=== PATIENT | female | born 1945 | race Caucasian/White ===

== ENCOUNTER 2016-07-03 12:01 | Inpatient (IN) ==
--- NOTE | 2016-07-03 12:26 | Emergency Department Note ---
General Adult HPI - General Chief complaint: Weakness Stated complaint: weakness Time Seen by Provider: 07/03/16 12:20 Source: patient, family, EMS Mode of arrival: EMS Limitations: no limitations - History of Present Illness HPI Narrative: This patient is morbidly obese at over 300 pounds and has had difficulty getting up and down and moving around recently also poor appetite and not eating or drinking much. Weakness is been coming on for 4 months. Apparently today she could not even get off the toilet she felt somewhat weak she is awake and alert and doesn't really have much the way of complaints other than slight nausea - Related Data Home Medications Medication Instructions Recorded Confirmed Oxygen Therapy NOTAPPLIC 12/11/14 01/14/16 polyethylene glycol 3350 17 17 g PO QHS each 12/11/14 02/22/16 gram/dose oral powder ranitidine 150 mg tablet 150 mg PO QHS tab 12/11/14 02/22/16 wheelchair miscellaneous Device NOTAPPLIC 12/11/14 01/14/16 fluticasone furoate 200 200 mcg INHALATION QDAY 08/04/15 02/22/16 mcg/actuation blister powder for inhalation levalbuterol 1.25 mg/3 mL solution 1.25 mg INHALATION QID ml 08/04/15 02/22/16 for nebulization tiotropium 2.5 mcg-olodaterol 2.5 2 inh INHALATION QDAY 08/04/15 02/22/16 mcg/actuation mist for inhalation aspirin 325 mg tablet 325 mg PO QDAY 01/14/16 02/22/16 bismuth subsalicylate 262 mg tablet 524 mg PO QID PRN 01/14/16 02/22/16 cholecalciferol (vitamin D3) 2,000 2,000 unit PO QDAY cap 01/14/16 02/22/16 unit capsule diphenhydramine 25 mg capsule 50 mg PO QHS PRN cap 01/14/16 02/22/16 Previous Rx's Medication Instructions Recorded B-complex with vitamin C tablet 1 tab-cap PO QDAY #30 tab 01/22/15 tramadol 50 mg tablet 50 mg PO TID PRN #90 tab 01/07/16 oseltamivir 75 mg capsule 75 mg PO QDAY 10 Days 03/08/16 cefdinir 300 mg capsule 300 mg PO BID 10 Days 03/10/16 levothyroxine 50 mcg tablet 50 mcg PO QDAY #60 tab 03/16/16 furosemide 20 mg tablet 40 mg PO QDAY #60 tab 06/02/16 potassium chloride ER 10 mEq 20 meq PO QDAY #60 tab 06/02/16 tablet,extended release HYDROcodone/APAP 5/325MG [Glennie 1 - 2 tab PO Q4HP PRN #20 tab 06/08/16 5/325Mg] venlafaxine ER 75 mg 75 mg PO QDAY #30 cap 06/09/16 capsule,extended release 24 hr Allergies Allergy/AdvReac Type Severity Reaction Status Date / Time Erythromycin Base Allergy Rash Verified 07/03/16 12:08 Sulfa (Sulfonamide Allergy Rash Verified 07/03/16 12:08 Antibiotics) Review of Systems Constitutional: Denies: fever, chills Eyes: Denies: eye pain ENT ED: Denies: ear pain Cardiovascular: Denies: chest pain, palpitations Respiratory: Denies: cough, dyspnea Gastrointestinal: Reports: nausea. Denies: abdominal pain, vomiting, diarrhea Genitourinary: Denies: urgency Musculoskeletal: Denies: back pain Integumentary: Denies: rash Neurological: Denies: headache Psychiatric: Denies: anxiety Past Medical History - Past Medical History Medical history: Reports: arthritis, asthma, atrial fibrillation, CHF, COPD, coronary artery disease, GERD, hyperlipidemia, hypertension, migraine, peripheral artery disease, thyroid disease, other (Hypothyroidism, carpal tunnel right wrist. Peripheral vascular disease, morbid obesity, GERD, migraine headache, hypercholesterolemia. Hypertension, oppression, to fibrillation, asthma,) Surgical history ED: Reports: cataract, cholecystectomy, hysterectomy Psychiatric history: Reports: anxiety, depression Physical Exam - General Limitations: no limitations General appearance: alert - Head Head exam: atraumatic - Eye Eye exam: Present: normal appearance - ENT ENT exam: normal exam, mucous membranes dry - Neck Neck exam: Present: normal inspection - Chest Chest inspection: Present: normal inspection - Respiratory Respiratory exam: Present: normal lung sounds bilaterally - Cardiovascular Cardiovascular exam: Present: regular rate, normal rhythm, normal heart sounds - Abdominal Exam Abdominal exam: Present: soft. Absent: distention, tenderness - Neurological Exam Neurological exam: Present: alert - Psychiatric Psychiatric exam: Present: normal affect - Skin Skin exam: Present: warm, dry Course Vital Signs Temperature 97.2 F L 07/03/16 12:02 Pulse Rate 87 07/03/16 12:02 Respiratory Rate 22 07/03/16 12:02 Blood Pressure 110/88 07/03/16 12:02 Pulse Oximetry (%) 95 07/03/16 12:02 Temperature 97.2 F L 07/03/16 12:02 Pulse Rate 70 07/03/16 17:00 Respiratory Rate 15 07/03/16 17:00 Blood Pressure 111/72 07/03/16 17:00 Pulse Oximetry (%) 94 07/03/16 17:00 Medical Decision Making - Lab Data Lab results reviewed: Yes I reviewed the patient's lab results. Result diagrams: 07/03/16 12:54 07/03/16 12:54 Lab Results 07/03/16 07/03/16 07/03/16 Range/Units 12:54 12:54 12:54 WBC 10.2 (4.5-11.0) K/mcL RBC 3.55 L (4.00-5.20) M/mcL Hgb 11.2 L (12.0-15.0) g/dL Hct 34.5 L (36.0-48.0) % MCV 97.3 (80.0-100.0) fL MCH 31.6 (26.0-34.0) pg MCHC 32.5 (31.0-36.0) g/dL RDW 14.0 (11.5-14.5) % Plt Count 230 (140-440) K/mcL MPV 9.3 (7.4-10.4) fL Gran % 87.6 H (38.0-78.0) % Lymph % (Auto) 6.4 L (15.5-49.0) % [place] % (Auto) 2.5 (1.0-9.0) % Eos % (Auto) 3.2 (0.0-7.0) % Baso % (Auto) 0.3 (0.0-2.0) % Gran # 8.9 H (1.8-8.0) K/mcL Lymph # 0.6 L (1.5-4.8) K/mcL [place]y # 0.3 (0.1-0.9) K/mcL Eos # 0.3 (0.0-0.7) K/mcL Baso # 0 (0.0-0.3) K/mcL VBG Lactic Acid 1.3 (0.5-2.2) mmol/L Sodium 142 (133-145) mmol/L Potassium 4.0 (3.3-5.1) mmol/L Chloride 102 (96-108) mmol/L Carbon Dioxide 32 H (22-30) mmol/L Anion Gap 8.0 (8-16) BUN 21 (8-23) mg/dl Creatinine 0.9 (0.6-1.1) mg/dl GFR Calculation 65 Glucose 100 (70-105) mg/dL Calcium 9.4 (8.6-10.4) mg/dl Total Bilirubin 0.3 (0.0-1.0) mg/dL AST 16 (0-37) U/l ALT 5 (0-40) U/l Alkaline Phosphatase 92 (39-117) U/L Troponin T (0-0.03) ng/ml Total Protein 7.1 (5.9-8.4) gm/dL Albumin 3.6 (3.2-5.2) gm/dL Globulin 3.5 (2.2-3.7) gm/dL Albumin/Globulin Ratio 1.0 (1.0-2.3) Urine Color Urine Appearance Urine pH (5.0-9.0) Ur Specific [place] (1.000-1.035) Urine Protein (NEG) mg/dL Urine Glucose (UA) (NEG) mg/dL Urine Ketones (NEG) mg/dL Urine Occult Blood (<0.03) mg/dL Urine Nitrate (NEG) Urine Bilirubin (NEG) mg/dL Urine Urobilinogen (NEG) mg/dL Ur Leukocyte Esterase (NEG) /uL Urine RBC (0-1) /hpf Urine WBC (0-4) /hpf Ur Squamous Epith Cells (0-4) /hpf Calcium Oxalate Crystal (0) /hpf Amorphous Crystals (0) /hpf Urine Bacteria (0) /hpf Urine Mucus (0) /hpf Ur Culture Indicated? 07/03/16 07/03/16 Range/Units 12:54 13:03 WBC (4.5-11.0) K/mcL RBC (4.00-5.20) M/mcL Hgb (12.0-15.0) g/dL Hct (36.0-48.0) % MCV (80.0-100.0) fL MCH (26.0-34.0) pg MCHC (31.0-36.0) g/dL RDW (11.5-14.5) % Plt Count (140-440) K/mcL MPV (7.4-10.4) fL Gran % (38.0-78.0) % Lymph % (Auto) (15.5-49.0) % [place]offey % (Auto) (1.0-9.0) % Eos % (Auto) (0.0-7.0) % Baso % (Auto) (0.0-2.0) % Gran # (1.8-8.0) K/mcL Lymph # (1.5-4.8) K/mcL [place]y # (0.1-0.9) K/mcL Eos # (0.0-0.7) K/mcL Baso # (0.0-0.3) K/mcL VBG Lactic Acid (0.5-2.2) mmol/L Sodium (133-145) mmol/L Potassium (3.3-5.1) mmol/L Chloride (96-108) mmol/L Carbon Dioxide (22-30) mmol/L Anion Gap (8-16) BUN (8-23) mg/dl Creatinine (0.6-1.1) mg/dl GFR Calculation Glucose (70-105) mg/dL Calcium (8.6-10.4) mg/dl Total Bilirubin (0.0-1.0) mg/dL AST (0-37) U/l ALT (0-40) U/l Alkaline Phosphatase (39-117) U/L Troponin T < 0.01 (0-0.03) ng/ml Total Protein (5.9-8.4) gm/dL Albumin (3.2-5.2) gm/dL Globulin (2.2-3.7) gm/dL Albumin/Globulin Ratio (1.0-2.3) Urine Color Yellow Urine Appearance Hazy Urine pH 5.0 (5.0-9.0) Ur Specific [place] 1.028 (1.000-1.035) Urine Protein 30 A (NEG) mg/dL Urine Glucose (UA) Negative (NEG) mg/dL Urine Ketones Neg (NEG) mg/dL Urine Occult Blood 0.2 A (<0.03) mg/dL Urine Nitrate Pos A (NEG) Urine Bilirubin Neg (NEG) mg/dL Urine Urobilinogen Neg (NEG) mg/dL Ur Leukocyte Esterase 75 A (NEG) /uL Urine RBC 32 H (0-1) /hpf Urine WBC 33 H (0-4) /hpf Ur Squamous Epith Cells 1 (0-4) /hpf Calcium Oxalate Crystal Many A (0) /hpf Amorphous Crystals Few A (0) /hpf Urine Bacteria Many A (0) /hpf Urine Mucus Many A (0) /hpf Ur Culture Indicated? Yes - Radiology Data Radiology results reviewed: Yes I reviewed the patient's radiology results. Disposition Clinical Impression: Urinary tract infection Disposition: Xfer As Outpt/Obs ([facility]) Condition: Good Referrals: Angus Minor MD [Primary Care Provider] - Time of Disposition: 18:04
[2016-07-03] MEDS ORDERED: 0.9 % SODIUM CHLORIDE 1,000 ML IV ONE (12:28)
[2016-07-03 13:31] LABS: Basophils # (Auto) 0 K/mcL (0.0-0.3); Basophils % (Auto) 0.3 % (0.0-2.0); Eosinophils # (Auto) 0.3 K/mcL (0.0-0.7); Eosinophils % (Auto) 3.2 % (0.0-7.0); Granulocytes % (Auto) 87.6 % (38.0-78.0); Lymphocytes # (Auto) 0.6 K/mcL (1.5-4.8); Lymphocytes % (Auto) 6.4 % (15.5-49.0); Mean Cell Volume 97.3 fL (80.0-100.0); Mean Corpuscular HGB Conc 32.5 g/dL (31.0-36.0); Mean Corpuscular Hemoglobin 31.6 pg (26.0-34.0); Monocytes # (Auto) 0.3 K/mcL (0.1-0.9); Monocytes % (Auto) 2.5 % (1.0-9.0); Platelet Count 230 K/mcL (140-440); RBC 3.55 M/mcL (4.00-5.20)
[2016-07-03 13:41] LABS: ALT/SGPT 5 U/l (0-40); Albumin 3.6 gm/dL (3.2-5.2); Alkaline Phosphatase 92 U/L (39-117); Blood Urea Nitrogen 21 mg/dl (8-23)
[2016-07-03 13:47] LABS: Appearance,Urine HAZY; Bacteria,Urine MANY /hpf (0); Bilirubin,Urine NEG (NEG); Calcium Oxalate Crystals,Urine MANY /hpf (0); Color,Urine YELLOW; Glucose,Urine (UA) NEGATIVE (NEG); Leukocyte Esterase,Urine 75 /uL (NEG); Mucus,Urine MANY /hpf (0); Nitrate,Urine POS (NEG); Protein,Urine 30 mg/dL (NEG); Specific Gravity,Urine 1.028 (1.000-1.035); Urine Amorphous Crystals FEW /hpf (0); Urine Blood 0.2 mg/dL (<0.03); Urine RBC 32 /hpf (0-1); Urine Squamous Epithelial Cell 1 /hpf (0-4); Urine WBC 33 /hpf (0-4); Urobilinogen,Urine NEG (NEG)
--- NOTE | 2016-07-03 15:10 | XRay Report ---
HISTORY: Reason for Exam:weak FINDINGS: The heart is moderately enlarged. There is no congestive heart failure or pulmonary infiltrate. No pleural effusion is present. There has been no significant change since 02/22/16. IMPRESSION: Stable cardiomegaly and no congestive heart failure or acute abnormality Interpreted and Authenticated by: Kirk Hernandez 07/03/16
[2016-07-03] MEDS ORDERED: LEVOFLOXACIN 500 MG/100 ML BAG IV ONE (16:15)
--- NOTE | 2016-07-03 19:20 | Internal Med History&Physical ---
Medical - H&P: HPI Patient information: Note initiated : 07/03/16 at 7:16 pm Service Date, if different from initiated Date: [] Patient: Elizabeth Robles 70 y/o F admitted on for weakness. Chief Complaint: [] History of present illness: Ms. Robles is a 70 year old female with multiple medical issues ,presented to the ER after unable to get up from her toilet seat. The patient has been having a gradual decline in her functional status over many years, but predominantly so over last few weeks. The patient at baseline uses wheel chair to ambulate and sometimes uses a walker to stand, but mostly does not do much. She had a fall recently in may and developed a fracture of the left ankle, which further worsened her ambulatory status. a few days ago she was unable to do ADL/ get up from her bathroom, and EMS was called but she did not want to come in, today again with a similar problem she decided to come in. She denies any other complaints. she is morbidly obese with jagdish severe OA of knees and left ankle fractures which is supposed to be in a boot. Her it seems is not able to take good care of her. In the ER her vital signs were normal, her ua was positive for UTI, her bnp was mildly elevated, but she has no clinical signs of chf, lactate is normal. Patient also notes that she has a ulce on the gluteal region which could not be inspected due to habitus today in the ER . Of note she has h/o PELON but is non compliant with use of her cpap machine. The patient was deemed not safe to go back home given her decline in her functional status and was admitted to the hospital for further management. - Constitutional Constitutional: Present: fatigue, weakness. Absent: chills, fever(s) - EENT Eyes: Absent: blurry vision, change in vision Nose, mouth and throat: Absent: abnormal hearing, disequilibrium, dizziness - Cardiovascular Cardiovascular: Present: dyspnea on exertion. Absent: chest pain at rest, lightheadedness, palpatations - Respiratory Respiratory: Absent: dyspnea, chest congestion, excessive phlegm production, change in phlegm color - Gastrointestinal Gastrointestinal: Absent: abdominal pain, diarrhea, nausea, vomiting - Genitourinary Genitourinary: Absent: hematuria, urinary frequency, urinary hesitancy - Musculoskeletal Musculoskeletal: Present: arthralgias, back pain, limited range of motion (left ankle) - Integumentary Integumentary: Present: unusual bruising, wounds. Absent: jaundice - Neurological Neurological: Absent: focal weakness, syncope, vertigo - Psychiatric Psychiatric: Present: abnormal sleep pattern, depression. Absent: confusion - Endocrine Endocrine: Absent: polydipsia, polyphagia, polyuria - Hematologic/Lymphatic Hematologic/Lymphatic: Present: easy bleeding, easy bruising - Allergic/Immunologic Allergic/Immunologic: Absent: uticaria, wheezing Medical - H&P: PMH Medical history: Medical History Urinary tract infection (Acute) Fracture of malleolus of left ankle (Acute) Laceration (Acute) Left ankle sprain (Acute) Rotator cuff syndrome (Acute) After-cataract obscuring vision (Chronic) Anxiety disorder (Chronic) Arthritis (Chronic) Asthma (Chronic) Atrial fibrillation (Chronic) Blepharitis (Chronic) Blurred vision (Chronic) Cardiomyopathy (Chronic) Carpal tunnel syndrome of right wrist (Chronic) Chest pain, atypical (Chronic) Chronic obstructive pulmonary disease (Chronic) Cobalamin deficiency (Chronic) Constipation (Chronic) Coronary artery disease (Chronic) Dental disorder (Chronic) Depression (Chronic) Disorder of kidney and ureter (Chronic) Duodenal ulcer without hemorrhage, perforation, or obstruction (Chronic) Fatigue (Chronic) Gastroesophageal reflux (Chronic) HTN (hypertension) (Chronic) Heart disease (Chronic) Hypercholesterolemia (Chronic) Hyperlipidemia (Chronic) Lymphedema (Chronic) MRSA (methicillin resistant Staphylococcus aureus) (Chronic) Migraine (Chronic) Obesity, morbid (Chronic) Obstructive sleep apnea (Chronic) Osteoarthritis (Chronic) Paresthesia (Chronic) Peripheral vascular disease (Chronic) Primary osteoarthritis of knees, bilateral (Chronic) Primary osteoarthritis of right hand (Chronic) Pseudophakia (Chronic) Radiculopathy, cervical region (Chronic) Rhinitis, allergic (Chronic) Sleep apnea (Chronic) Stomach problems (Chronic) Tobacco abuse (Chronic 06/25/13) Unilateral primary osteoarthritis of first carpometacarpal joint, right hand ( Chronic) Urinary incontinence (Chronic) 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) Fluid overload (Resolved) Pain in joint, ankle and foot (Resolved) Ulcer of ankle (Resolved) Urinary tract infection (Resolved 07/16/14) Congestive heart failure (Ruled-out) Surgical history: Past Surgical History H/O: hysterectomy (Acute) History of bladder suspension procedure (Resolved) History of breast biopsy (Resolved) History of cardiac catheterization (Resolved) History of carpal tunnel repair (Resolved) History of cataract surgery (Resolved) History of cholecystectomy (Resolved) History of hemorrhoidectomy (Resolved) History of hysterectomy (Resolved) Status post gastroplasty (Resolved) Family history: reviewed and not pertinent Social history: ex smoker lives with neg report of substance use. Medical - H&P: Meds Home Medications Medication Instructions Recorded Confirmed Type Oxygen Therapy NOTAPPLIC 12/11/14 01/14/16 History polyethylene glycol 3350 17 17 g PO QHS each 12/11/14 07/03/16 History gram/dose oral powder ranitidine 150 mg tablet 150 mg PO QHS tab 12/11/14 07/03/16 History wheelchair miscellaneous Device NOTAPPLIC 12/11/14 01/14/16 History fluticasone furoate 200 200 mcg INHALATION QDAY 08/04/15 07/03/16 History mcg/actuation blister powder for inhalation levalbuterol 1.25 mg/3 mL solution 1.25 mg INHALATION QID ml 08/04/15 07/03/16 History for nebulization tiotropium 2.5 mcg-olodaterol 2.5 2 inh INHALATION QDAY 08/04/15 07/03/16 History mcg/actuation mist for inhalation aspirin 325 mg tablet 325 mg PO QDAY 01/14/16 07/03/16 History bismuth subsalicylate 262 mg tablet 524 mg PO QID PRN 01/14/16 07/03/16 History cholecalciferol (vitamin D3) 2,000 2,000 unit PO QDAY cap 01/14/16 07/03/16 History unit capsule diphenhydramine 25 mg capsule 50 mg PO QHS PRN cap 01/14/16 07/03/16 History Allergies Allergy/AdvReac Type Severity Reaction Status Date / Time Erythromycin Base Allergy Rash Verified 07/03/16 12:08 Sulfa (Sulfonamide Allergy Rash Verified 07/03/16 12:08 Antibiotics) Medical - H&P: Exam - Constitutional Vitals: Temp Pulse Resp BP Pulse Ox 97.2 F L 70 17 117/67 97 07/03/16 12:02 07/03/16 18:30 07/03/16 18:30 07/03/16 18:30 07/03/16 18:30 General appearance: morbidly obese, no acute distress - Head Head exam: Present: atraumatic, normal inspection, normocephalic - Eye Eye exam: Present: PERRL. Absent: periorbital swelling, periorbital tenderness , scleral icterus - ENT ENT exam: Present: mucous membranes dry - Neck Neck exam: Present: normal inspection - Respiratory Respiratory exam: Present: normal respiratory exam. Absent: accessory muscle use, stridor, wheezes - Cardiovascular Cardiovascular exam: Present: normal rate and rhythm, irregular rhythm, +S1, +S2 - GI/Abdominal GI/Abdominal exam: Present: normal bowel sounds, soft Additional comments: obese abdomen - Extremities Exam Additional comments: jagdish edema, left mild erythema, linear healing ulcer with scab on the left leg. jagdish feet with dry skin, poorly kept nails. - Neurological Exam Neurological exam: Present: alert, CN II-XII intact, oriented X3. Absent: motor sensory deficit - Psychiatric Psychiatric exam: Absent: agitated, anxious - Skin Skin exam: Present: warm. Absent: rash Medical - H&P: Reslt - Labs CBC & Chem 7: 07/03/16 12:54 07/03/16 12:54 Labs: Short CBC 07/03/16 Range/Units 12:54 WBC 10.2 (4.5-11.0) K/mcL Hgb 11.2 L (12.0-15.0) g/dL Hct 34.5 L (36.0-48.0) % Plt Count 230 (140-440) K/mcL BMP 07/03/16 12:54 Sodium 142 Potassium 4.0 Chloride 102 Carbon Dioxide 32 H BUN 21 Creatinine 0.9 Glucose 100 Calcium 9.4 Cardiac Enzymes 07/03/16 Range/Units 12:54 Troponin T < 0.01 (0-0.03) ng/ml Liver Function 07/03/16 Range/Units 12:54 Total Bilirubin 0.3 (0.0-1.0) mg/dL AST 16 (0-37) U/l ALT 5 (0-40) U/l Alkaline Phosphatase 92 (39-117) U/L Albumin 3.6 (3.2-5.2) gm/dL Urine 07/03/16 Range/Units 13:03 Urine Color Yellow Urine Appearance Hazy Urine pH 5.0 (5.0-9.0) Ur Specific [place] 1.028 (1.000-1.035) Urine Protein 30 A (NEG) mg/dL Urine Glucose (UA) Negative (NEG) mg/dL Medical - H&P: A/P (1) Urinary tract infection Current visit: Yes Status: Acute (2) Fracture of malleolus of left ankle Current visit: No Status: Acute (3) Atrial fibrillation Problem details: Onset at 56 years of age;Has had cardioversion 3 times, with the last one being successful; not taking medications for management of this; sees [facility] Current visit: No Status: Chronic (4) Chronic obstructive pulmonary disease Problem details: managed by Dr Wahl Current visit: No Status: Chronic (5) Fatigue Current visit: No Status: Chronic (6) Obstructive sleep apnea Problem details: that she wears O2 at 2L at night; does not use CPAP due to clostrophobia Current visit: No Status: Chronic - Narrative A/P Narrative: Patient presents with fatigue, inability to take care of her self, and severe deconditioning along with a UTI UTI- Treat with IV rocephin, await cultures, Fatigue- Multifactorial, check tsh, but deconditioning due to ankle fracture and morbid obesity and other comorbidities are playing a part. OT/ PT eval, pt is non compliant with her pelon treatment, which may be playing a role in the overall picture. Sacral decubitus ulcer- wound care consult Afib- not on a nticoagulation, ? on asa continue same, defer management/ need for anticoagulation to pcp, hr stable, copd- stable, on oxygen at home, 2-3L during day, 3-4 at night. duonebs q 6 hrs , not in copd exacerbation. DVT hep sq Diet cardiac
[2016-07-03] MEDS ORDERED: ONDANSETRON 4 MG/2 ML VIAL IV PRN (19:44)
[2016-07-03] MEDS ORDERED: ACETAMINOPHEN 325 MG TABLET PO PRN (19:44)
[2016-07-03] MEDS ORDERED: NALOXONE HCL 0.4 MG/ML VIAL IV PRN (19:44)
[2016-07-03] MEDS ORDERED: diphenhydrAMINE 25 MG CAPSULE PO PRN (19:44)
[2016-07-03] MEDS: HEPARIN 5,000 UNIT/ML VIAL SQ SCH (20:24)
[2016-07-03] MEDS: IPRATROPIUM/ALBUTEROL 3 ML AMPUL.NEB NEB SCH (20:35)
[2016-07-03] MEDS ORDERED: cefTRIAXone 1 GM VIAL ONE (20:47)
[2016-07-03] MEDS: cefTRIAXone 2 GM in DEXTROSE 5% IN WATER 50 ML IV SCH (20:57)
[2016-07-03] MEDS: FAMOTIDINE 20 MG TABLET PO SCH (21:44)
[2016-07-03] MEDS: HYDROcodone/APAP 5/325MG TABLET PO PRN (21:46)
[2016-07-03] MEDS: 0.9 % SODIUM CHLORIDE 10 ML SYRINGE IV SCH (22:20)
[2016-07-04] MEDS: IPRATROPIUM/ALBUTEROL 3 ML AMPUL.NEB NEB SCH ×4 (01:16→18:59)
[2016-07-04] MEDS: HYDROcodone/APAP 5/325MG TABLET PO PRN ×3 (01:59→20:17)
[2016-07-04 06:05] LABS: Estimated Average Glucose(eAG) 88 mg/dL; Hemoglobin A1C 4.7 % HGB (4.0-6.0)
[2016-07-04] MEDS: 0.9 % SODIUM CHLORIDE 10 ML SYRINGE IV SCH ×3 (08:19→20:19)
[2016-07-04] MEDS: ASPIRIN 325 MG ENTERIC COATED TABLET PO SCH (08:46)
[2016-07-04] MEDS: FUROSEMIDE 20 MG TABLET PO SCH (08:46)
[2016-07-04] MEDS: LEVOTHYROXINE 50 MCG TABLET PO SCH (08:46)
[2016-07-04] MEDS: VENLAFAXINE 75 MG CAP.XL.24H PO SCH (08:46)
[2016-07-04] MEDS: VITAMIN D3 1,000 UNIT TABLET PO SCH (08:46)
[2016-07-04 08:47] LABS: Basophils # (Auto) 0.1 K/mcL (0.0-0.3); Eosinophils # (Auto) 0.4 K/mcL (0.0-0.7); Eosinophils % (Auto) 5.6 % (0.0-7.0); Granulocytes % (Auto) 74.8 % (38.0-78.0); Lymphocytes % (Auto) 13.5 % (15.5-49.0); Mean Cell Volume 96.7 fL (80.0-100.0); Mean Corpuscular HGB Conc 32.7 g/dL (31.0-36.0); Mean Corpuscular Hemoglobin 31.6 pg (26.0-34.0); Monocytes # (Auto) 0.4 K/mcL (0.1-0.9); Monocytes % (Auto) 5.1 % (1.0-9.0); Platelet Count 202 K/mcL (140-440); RBC 3.31 M/mcL (4.00-5.20); Red Cell Distribution Width 13.7 % (11.5-14.5)
[2016-07-04] MEDS: HEPARIN 5,000 UNIT/ML VIAL SQ SCH ×2 (08:47→20:18)
[2016-07-04] MEDS: POTASSIUM CHLORIDE 10 MEQ TABLET PO SCH (08:47)
[2016-07-04 09:13] LABS: ALT/SGPT 7 U/l (0-40); Albumin 3.4 gm/dL (3.2-5.2); Albumin/Globulin Ratio 1.3 (1.0-2.3); Alkaline Phosphatase 82 U/L (39-117); Bilirubin,Direct < 0.2 mg/dL (0.0-0.3); Blood Urea Nitrogen 17 mg/dl (8-23); Gamma Glutamyl Transpeptidase 8 U/L (5-36); Magnesium 1.9 mg/dL (1.6-2.5); Phosphorous 3.1 mg/dL (2.7-4.5)
--- NOTE | 2016-07-04 14:00 | Internal Med Progress Note ---
Medical - PN: Subj Patient information: Note initiated : 07/04/16 at 1:58 pm Service Date, if different from initiated Date: [] Patient: Elizabeth Robles 70 y/o F admitted on 07/03/16 for Weakness/UTI. Chief Complaint: [] Interval history: The patient seen examined sitting comfortably, admits to still being weak no acute overnight events. Seen by wound care nurse. Reccs appreciated urine growing gram neg bacillus, identification and sensitivities pending. Pertinent ROS: Denies headache, dizziness Denies chest pain, palpitations Denies cough or sob on exertion present Denies abdominal pain, nausea or vomiting. - Constitutional Vitals: Vital Signs Temp Pulse Resp BP Pulse Ox 98.4 F 81 16 104/63 92 07/04/16 12:00 07/04/16 13:07 07/04/16 13:07 07/04/16 12:00 07/04/16 13:01 Period Temp Pulse Resp BP Sys/Robert Pulse Ox Last 24 Hr 97.5 F-98.6 F 63-92 16-24 97-118/61-72 90-98 Intake and Output 07/03/16 07/04/16 07/04/16 21:59 05:59 13:59 Intake Total 570 / 570 240 / 240 Output Total 200 / 200 1450 / 1450 Balance -1 / 1099 370 / 370 -1210 / -1210 Weight 341 lb 8 oz Intake & Output: Intake & Output 07/03/16 07/04/16 07/04/16 21:59 05:59 13:59 Intake Total 570 / 570 240 / 240 Output Total 200 / 200 1450 / 1450 Balance -1 / 1099 370 / 370 -1210 / -1210 Weight 341 lb 8 oz Intake: Oral 570 / 570 240 / 240 Output: Urine Catheter Amount 200 / 200 1450 / 1450 # of times incontinent of urine Other: Meal Breakfast Percent of Meal Consumed 60 Exam: Constitutional; Afebrile, cooperative, alert, not in distress. morbidly obese. Eyes- No icterus, No periorbital swelling Ears- Ext ear normal, hearing normal to conversation. Neck- Midline trachea, supple Respiratory system: Air Entry equal on both sides, No crackles or wheezing, no rhonchi. CVS- Rate normal rhythm irregular, S1,S2 heard, no gallop, no rub. Abdomen- Soft nontender abdomen, no organomegaly, no tenderness, no guarding or rigidity, large pannus. REHABILITATION PSYCHOLOGIST- AOOx3, moving all extremities, no focal deficit noted. Medical - PN: Obj Da - Labs CBC & Chem 7: 07/04/16 08:05 07/04/16 08:05 Labs: Abnormal Lab Results 07/04/16 08:05 RBC 3.31 L Hgb 10.4 L Hct 32.0 L Lymph % (Auto) 13.5 L Lymph # 1.0 L Meds: Medications Acetaminophen (Tylenol) 650 mg PO Q6HP PRN PRN Reason: PAIN/FEVER > 101 Acetaminophen/Hydrocodone Bitart ([place] 5/325mg) 1 tab PO Q4HP PRN PRN Reason: Pain Last Admin: 07/04/16 13:15 Dose: 1 tab Albuterol/Ipratropium (Duoneb) 3 ml NEB Q6HRT [facility] Last Admin: 07/04/16 13:00 Dose: 3 ml Aspirin (Ecotrin) 325 mg PO DAILY [facility] Last Admin: 07/04/16 08:46 Dose: 325 mg Diphenhydramine HCl (Benadryl) 50 mg PO QHS PRN PRN Reason: Insomnia Famotidine (Pepcid) 20 mg PO HS [facility] Last Admin: 07/03/16 21:44 Dose: 20 mg Furosemide (Lasix) 40 mg PO QDAY [facility] Last Admin: 07/04/16 08:46 Dose: 40 mg Heparin Sodium (Porcine) (Heparin) 5,000 unit SQ Q12 [facility] Last Admin: 07/04/16 08:47 Dose: 5,000 unit Ceftriaxone Sodium 2 gm/ (Dextrose) 50 mls @ 100 mls/hr IV Q24H [facility] Last Admin: 07/03/16 20:57 Dose: 100 mls/hr Levothyroxine Sodium (Synthroid) 50 mcg PO QAMAC [facility] Last Admin: 07/04/16 08:46 Dose: 50 mcg Naloxone HCl (Narcan) 0.1 mg IV Q2MIN PRN PRN Reason: Opiate Reversal Ondansetron HCl (Zofran) 4 mg IV Q6HP PRN PRN Reason: Nausea And Vomiting Fluticasone Furoate [Arnuity Ellipta] 200 Mcg Inhaler 1 dose INH QDAY [facility] Tiotropium Br/Olodaterol Hcl [ Stiolto Respimat] 2. 5/2.5 Mcg Inhaler 2 dose INH QDAY [facility] Potassium Chloride (Kdur) 20 meq PO QAMCC [facility] Last Admin: 07/04/16 08:47 Dose: 20 meq Sodium Chloride (Saline Flush) 10 ml IV Q8 [facility] Last Admin: 07/03/16 22:20 Dose: 10 ml Venlafaxine HCl (Effexor Xr) 75 mg PO QDAY [facility] Last Admin: 07/04/16 08:46 Dose: 75 mg Vitamin D (Vitamin D3) 2,000 unit PO DAILY [facility] Last Admin: 07/04/16 08:46 Dose: 2,000 unit Medical - PN: A/P - Time Spent With Patient Total time spent is greater than 50% in coordination of care (as documented) at patient's floor/unit and/or counseling patient: (1) Urinary tract infection Status: Acute Assessment and plan: Gram neg bacillus likely cause of worsened weakness IV rocephin await sensitivites. Current Visit: Yes (2) Fracture of malleolus of left ankle Status: Acute Assessment and plan: on cast as per ortho. follow up as outpatient Current Visit: No (3) Atrial fibrillation Problem details: Onset at 56 years of age;Has had cardioversion 3 times, with the last one being successful; not taking medications for management of this; [facility] Status: Chronic Assessment and plan: HR stable no cp continue aspirin. Current Visit: No (4) Chronic obstructive pulmonary disease Problem details: managed by Dr Wahl Status: Chronic Assessment and plan: stable on baseline o2 requirement no wheezing continue home regime of nebs/ inhalers. Current Visit: No (5) Fatigue Status: Chronic Assessment and plan: due to UTI tsh wnl bnp midly up, no clinical e/o heart failure. non compliance with cpap also playing a role Current Visit: No Medical - PN: Qual - VTE Deep Vein Thrombosis/Pulmonary Embolism Present on Admission: No
[2016-07-04] MEDS: cefTRIAXone 2 GM in DEXTROSE 5% IN WATER 50 ML IV SCH (15:17)
[2016-07-04] MEDS: OLODATEROL HCL INH SCH (15:18)
[2016-07-04] MEDS: TIOTROPIUM BR INH SCH (15:18)
[2016-07-04] MEDS: FAMOTIDINE 20 MG TABLET PO SCH (20:17)
[2016-07-05] MEDS: IPRATROPIUM/ALBUTEROL 3 ML AMPUL.NEB NEB SCH ×4 (00:29→19:32)
[2016-07-05] MEDS: LEVOTHYROXINE 50 MCG TABLET PO SCH (07:58)
[2016-07-05] MEDS: POTASSIUM CHLORIDE 10 MEQ TABLET PO SCH (07:59)
[2016-07-05] MEDS: VENLAFAXINE 75 MG CAP.XL.24H PO SCH (08:00)
[2016-07-05] MEDS: ASPIRIN 325 MG ENTERIC COATED TABLET PO SCH (08:00)
[2016-07-05] MEDS: VITAMIN D3 1,000 UNIT TABLET PO SCH (08:00)
[2016-07-05] MEDS: HEPARIN 5,000 UNIT/ML VIAL SQ SCH ×2 (08:00→20:22)
[2016-07-05] MEDS: FUROSEMIDE 20 MG TABLET PO SCH (08:00)
[2016-07-05] MEDS: TIOTROPIUM BR INH SCH (08:02)
[2016-07-05] MEDS: OLODATEROL HCL INH SCH (08:02)
[2016-07-05] MEDS: 0.9 % SODIUM CHLORIDE 10 ML SYRINGE IV SCH ×3 (09:50→20:24)
[2016-07-05] MEDS: cefTRIAXone 2 GM in DEXTROSE 5% IN WATER 50 ML IV SCH (09:50)
--- NOTE | 2016-07-05 11:12 | Internal Med Progress Note ---
Medical - PN: Subj Patient information: Note initiated : 07/05/16 at 11:09 am Service Date, if different from initiated Date: [] Patient: Elizabeth Robles 70 y/o F admitted on 07/03/16 for Weakness/UTI. Chief Complaint: [] Interval history: The patient seen examined, comfortable in bed no acute complaints Still feels weak to go back home, needs 3 persons to assist Labs reviewed, unremarkable microbiology pending for uti. Pertinent ROS: Denies headache, dizziness Denies chest pain, palpitations Denies cough or shortness of breath Denies abdominal pain, nausea or vomiting. - Constitutional Vitals: Vital Signs Temp Pulse Resp BP Pulse Ox 97.1 F L 83 18 106/61 97 07/05/16 07:45 07/05/16 07:45 07/05/16 07:45 07/05/16 07:45 07/05/16 07:45 Period Temp Pulse Resp BP Sys/Robert Pulse Ox Last 24 Hr 97.1 F-99.2 F 78-103 16-20 94-109/54-69 90-99 Intake and Output 07/04/16 07/05/16 07/05/16 21:59 05:59 13:59 Intake Total 490 / 490 325 / 325 Output Total 550 / 550 800 / 800 Balance -60 / -60 -475 / -475 Weight 342 lb Intake & Output: Intake & Output 07/04/16 07/05/16 07/05/16 21:59 05:59 13:59 Intake Total 490 / 490 325 / 325 Output Total 550 / 550 800 / 800 Balance -60 / -60 -475 / -475 Weight 342 lb Intake: IV 50 / 50 Dextrose 5% in Water 50 50 / 50 ml @ 100 mls/hr IV Q24H SHAMAR with Rocephin 2 gm Rx #:[id number] Oral 440 / 440 325 / 325 Output: Urine Catheter Amount 550 / 550 800 / 800 Other: Meal Dinner Percent of Meal Consumed 100% Feeding Ability Independent Exam: Constitutional; Afebrile, cooperative, alert, not in distress. morbidly obese Eyes- No icterus, No periorbital swelling Ears- Ext ear normal, hearing normal to conversation. Neck- Midline trachea, supple Respiratory system: Air Entry equal on both sides, No crackles or wheezing, no rhonchi. CVS- Rate normal rhythm irregular, S1,S2 heard, no gallop, no rub. Abdomen- Soft nontender abdomen, no organomegaly, no tenderness, no guarding or rigidity, SILK WEAVER- AOOx3, moving all extremities, no focal deficit noted. Medical - PN: Obj Da - Labs CBC & Chem 7: 07/04/16 08:05 07/04/16 08:05 Labs: Abnormal Lab Results 07/04/16 08:05 RBC 3.31 L Hgb 10.4 L Hct 32.0 L Lymph % (Auto) 13.5 L Lymph # 1.0 L Meds: Medications Acetaminophen (Tylenol) 650 mg PO Q6HP PRN PRN Reason: PAIN/FEVER > 101 Acetaminophen/Hydrocodone Bitart ([place] 5/325mg) 1 tab PO Q4HP PRN PRN Reason: Pain Last Admin: 07/04/16 20:17 Dose: 1 tab Albuterol/Ipratropium (Duoneb) 3 ml NEB Q6HRT [facility] Last Admin: 07/05/16 06:55 Dose: 3 ml Aspirin (Ecotrin) 325 mg PO DAILY [facility] Last Admin: 07/05/16 08:00 Dose: 325 mg Diphenhydramine HCl (Benadryl) 50 mg PO QHS PRN PRN Reason: Insomnia Famotidine (Pepcid) 20 mg PO HS [facility] Last Admin: 07/04/16 20:17 Dose: 20 mg Furosemide (Lasix) 40 mg PO QDAY [facility] Last Admin: 07/05/16 08:00 Dose: 40 mg Heparin Sodium (Porcine) (Heparin) 5,000 unit SQ Q12 [facility] Last Admin: 07/05/16 08:00 Dose: 5,000 unit Ceftriaxone Sodium 2 gm/ (Dextrose) 50 mls @ 100 mls/hr IV Q24H [facility] Last Admin: 07/05/16 09:50 Dose: 100 mls/hr Levothyroxine Sodium (Synthroid) 50 mcg PO QAMAC [facility] Last Admin: 07/05/16 07:58 Dose: 50 mcg Naloxone HCl (Narcan) 0.1 mg IV Q2MIN PRN PRN Reason: Opiate Reversal Ondansetron HCl (Zofran) 4 mg IV Q6HP PRN PRN Reason: Nausea And Vomiting Fluticasone Furoate [Arnuity Ellipta] 200 Mcg Inhaler 1 dose INH QDAY [facility] Last Admin: 02/21/17 08:02 Dose: 1 dose Tiotropium Br/Olodaterol Hcl [ Stiolto Respimat] 2. 5/2.5 Mcg Inhaler 2 dose INH QDAY [facility] Last Admin: 07/05/16 08:02 Dose: 2 dose Potassium Chloride (Kdur) 20 meq PO QAC [facility] Last Admin: 07/05/16 07:59 Dose: 20 meq Sodium Chloride (Saline Flush) 10 ml IV Q8 [facility] Last Admin: 07/05/16 09:50 Dose: 10 ml Venlafaxine HCl (Effexor Xr) 75 mg PO QDAY [facility] Last Admin: 07/05/16 08:00 Dose: 75 mg Vitamin D (Vitamin D3) 2,000 unit PO DAILY [facility] Last Admin: 07/05/16 08:00 Dose: 2,000 unit Medical - PN: A/P - Time Spent With Patient Total time spent is greater than 50% in coordination of care (as documented) at patient's floor/unit and/or counseling patient: (1) Urinary tract infection Status: Acute Assessment and plan: Gram neg bacillus likely cause of worsened weakness IV rocephin await sensitivites. Current Visit: Yes (2) Fracture of malleolus of left ankle Status: Acute Assessment and plan: on cast as per ortho. follow up as outpatient Current Visit: No (3) Atrial fibrillation Problem details: Onset at 56 years of age;Has had cardioversion 3 times, with the last one being successful; not taking medications for management of this; [facility] Status: Chronic Assessment and plan: HR stable no cp continue aspirin. Current Visit: No (4) Chronic obstructive pulmonary disease Problem details: managed by Dr Wahl Status: Chronic Assessment and plan: stable on baseline o2 requirement no wheezing continue home regime of nebs/ inhalers. Current Visit: No (5) Fatigue Status: Chronic Assessment and plan: due to UTI tsh wnl bnp midly up, no clinical e/o heart failure. non compliance with cpap also playing a role Current Visit: No - Narrative A/P Narrative: Dispo is difficult, pt unable to go home does not meet critiera for inpatient stay to qualify for snf. will work with case management to come up with a plan for safe discharge/ and ongoing rehab. Medical - PN: Qual - VTE Deep Vein Thrombosis/Pulmonary Embolism Present on Admission: No
[2016-07-05] MEDS: HYDROcodone/APAP 5/325MG TABLET PO PRN ×2 (12:03→22:08)
[2016-07-05] MEDS: FAMOTIDINE 20 MG TABLET PO SCH (20:22)
[2016-07-06] MEDS: IPRATROPIUM/ALBUTEROL 3 ML AMPUL.NEB NEB SCH ×4 (01:02→18:30)
[2016-07-06] MEDS: 0.9 % SODIUM CHLORIDE 10 ML SYRINGE IV SCH ×3 (05:59→21:20)
[2016-07-06] MEDS: LEVOTHYROXINE 50 MCG TABLET PO SCH (07:49)
[2016-07-06] MEDS: POTASSIUM CHLORIDE 10 MEQ TABLET PO SCH (07:49)
[2016-07-06] MEDS: HYDROcodone/APAP 5/325MG TABLET PO PRN ×2 (07:51→21:21)
[2016-07-06] MEDS: VITAMIN D3 1,000 UNIT TABLET PO SCH (09:16)
[2016-07-06] MEDS: cefTRIAXone 2 GM in DEXTROSE 5% IN WATER 50 ML IV SCH (09:16)
[2016-07-06] MEDS: VENLAFAXINE 75 MG CAP.XL.24H PO SCH (09:17)
[2016-07-06] MEDS: HEPARIN 5,000 UNIT/ML VIAL SQ SCH ×2 (09:17→21:20)
[2016-07-06] MEDS: ASPIRIN 325 MG ENTERIC COATED TABLET PO SCH (09:17)
[2016-07-06] MEDS: FUROSEMIDE 20 MG TABLET PO SCH (09:17)
[2016-07-06] MEDS: TIOTROPIUM BR INH SCH (10:57)
[2016-07-06] MEDS: OLODATEROL HCL INH SCH (10:57)
--- NOTE | 2016-07-06 14:39 | Internal Med Progress Note ---
Medical - PN: Subj Patient information: Note initiated : 07/06/16 at 2:39 pm Service Date, if different from initiated Date: [] Patient: Elizabeth Robles 70 y/o F admitted on 07/03/16 for Weakness/UTI. Chief Complaint: [] Interval history: 07/03- Ms. Robles is a 70 year old female with multiple medical issues , presented to the ER after unable to get up from her toilet seat. The patient has been having a gradual decline in her functional status over many years, but predominantly so over last few weeks. The patient at baseline uses wheel chair to ambulate and sometimes uses a walker to stand, but mostly does not do much. She had a fall recently in may and developed a fracture of the left ankle, which further worsened her ambulatory status. a few days ago she was unable to do ADL/ get up from her bathroom, and EMS was called but she did not want to come in, today again with a similar problem she decided to come in. She denies any other complaints. she is morbidly obese with jagdish severe OA of knees and left ankle fractures which is supposed to be in a boot. Her it seems is not able to take good care of her. In the ER her vital signs were normal, her ua was positive for UTI, her bnp was mildly elevated, but she has no clinical signs of chf, lactate is normal. Patient also notes that she has a ulce on the gluteal region which could not be inspected due to habitus today in the ER . Of note she has h/o PELON but is non compliant with use of her cpap machine. The patient was deemed not safe to go back home given her decline in her functional status and was admitted to the hospital for further management. 07/06- patient clinically improved however requires 2 person assist. Unable to get out of bed. Extremely weak. Very high risk Decompensation if discharge. also recent left ankle fracture limiting ability to be await. pansensitive Escherichia coli UTI on antibiotic coverage. Case management to coordinate SNF transferdue to increasing weakness and requiring higher level and intensity of service due to inability to take care of herself. patient transfer him to inpatient status. Case management to coordinate SNF transfer for continued posthospitalization rehabilitation - Constitutional Vitals: Vital Signs Temp Pulse Resp BP Pulse Ox 97.6 F 89 20 129/88 87 L 07/06/16 12:00 07/06/16 13:30 07/06/16 13:30 07/06/16 12:00 07/06/16 13:42 Period Temp Pulse Resp BP Sys/Robert Pulse Ox Last 24 Hr 97.1 F-98.0 F 78-92 12-24 108-129/65-88 85-98 Intake and Output 07/06/16 07/06/16 07/06/16 05:59 13:59 21:59 Intake Total 275 / 275 200 / 200 Output Total 250 / 250 Balance 25 / 25 200 / 200 Weight 343 lb Patient Weight 07/07/16 05:59 Weight 343 lb Intake & Output: Intake & Output 07/06/16 07/06/16 07/06/16 05:59 13:59 21:59 Intake Total 275 / 275 200 / 200 Output Total 250 / 250 Balance 25 / 25 200 / 200 Weight 343 lb Intake: Oral 275 / 275 200 / 200 Output: Urine Catheter Amount 250 / 250 Other: Meal Lunch Percent of Meal Consumed 25% Feeding Ability Assist with Tray Set Up General appearance: morbidly obese, no acute distress Exam: resting comfortably Minimal lymphedema nonlabored breathing Extensive abdominal pannus Medical - PN: Obj Da - Labs CBC & Chem 7: 07/04/16 08:05 07/04/16 08:05 Labs: Abnormal Lab Results 07/04/16 08:05 RBC 3.31 L Hgb 10.4 L Hct 32.0 L Lymph % (Auto) 13.5 L Lymph # 1.0 L Meds: Medications Acetaminophen (Tylenol) 650 mg PO Q6HP PRN PRN Reason: PAIN/FEVER > 101 Acetaminophen/Hydrocodone Bitart ([place] 5/325mg) 1 tab PO Q4HP PRN PRN Reason: Pain Last Admin: 07/06/16 07:51 Dose: 1 tab Albuterol/Ipratropium (Duoneb) 3 ml NEB Q6HRT [facility] Last Admin: 07/06/16 13:29 Dose: 3 ml Aspirin (Ecotrin) 325 mg PO DAILY [facility] Last Admin: 07/06/16 09:17 Dose: 325 mg Diphenhydramine HCl (Benadryl) 50 mg PO QHS PRN PRN Reason: Insomnia Famotidine (Pepcid) 20 mg PO HS [facility] Last Admin: 07/05/16 20:22 Dose: 20 mg Furosemide (Lasix) 40 mg PO QDAY [facility] Last Admin: 07/06/16 09:17 Dose: 40 mg Heparin Sodium (Porcine) (Heparin) 5,000 unit SQ Q12 [facility] Last Admin: 07/06/16 09:17 Dose: 5,000 unit Ceftriaxone Sodium 2 gm/ (Dextrose) 50 mls @ 100 mls/hr IV Q24H [facility] Last Admin: 07/06/16 09:16 Dose: 100 mls/hr Levothyroxine Sodium (Synthroid) 50 mcg PO QAMAC [facility] Last Admin: 07/06/16 07:49 Dose: 50 mcg Naloxone HCl (Narcan) 0.1 mg IV Q2MIN PRN PRN Reason: Opiate Reversal Ondansetron HCl (Zofran) 4 mg IV Q6HP PRN PRN Reason: Nausea And Vomiting Fluticasone Furoate [Arnuity Ellipta] 200 Mcg Inhaler 1 dose INH QDAY [facility] Last Admin: 07/06/16 10:57 Dose: Not Given Tiotropium Br/Olodaterol Hcl [ Stiolto Respimat] 2. 5/2.5 Mcg Inhaler 2 dose INH QDAY [facility] Last Admin: 07/06/16 10:57 Dose: Not Given Potassium Chloride (Kdur) 20 meq PO [facility] Last Admin: 07/06/16 07:49 Dose: 20 meq Sodium Chloride (Saline Flush) 10 ml IV Q8 [facility] Last Admin: 07/06/16 14:32 Dose: Not Given Venlafaxine HCl (Effexor Xr) 75 mg PO QDAY [facility] Last Admin: 07/06/16 09:17 Dose: 75 mg Vitamin D (Vitamin D3) 2,000 unit PO DAILY [facility] Last Admin: 07/06/16 09:16 Dose: 2,000 unit Medical - PN: A/P - Time Spent With Patient Total time spent is greater than 50% in coordination of care (as documented) at patient's floor/unit and/or counseling patient: 25 - 35 minutes (1) Complicated UTI (urinary tract infection) Status: Acute Assessment and plan: * Complicated Escherichia coli UTI-continue antibiotic coverage. Pansensitive. * severe deconditioning secondary to morbid obesity and inability to take care of self-case management to coordinate SNF transfer * History of COPD onbronchodilators * Hypothyroidism on thyroxine * Anxiety disorder on venlafaxine * gERD on ranitidine plan * transfer to inpatient status Due to high risk deconditioning and need for SNF * continue antibiotic coverage * Pre-existing medical condition management as above * Case management to coordinate SNF transfer Current Visit: Yes Medical - PN: Qual - VTE Deep Vein Thrombosis/Pulmonary Embolism Present on Admission: No
--- NOTE | 2016-07-06 17:53 | XRay Report ---
CLINICAL INFORMATION: Trauma COMPARISON: None. FINDINGS: Moderate pes planus, hallux valgus and metatarsus abductus is noted. No definite fracture identified. Flattening and erosion of the articular surface - second metatarsal head may be traumatic or due to chronic arthritic change. Moderate degenerative change seen in the second through fifth interphalangeal joints. Marked diffuse soft tissue swelling IMPRESSION: 1. No fracture identified. Visualization is suboptimal due to marked soft tissue swelling and mild osteoporosis 2. Metatarsus abductus, hallux valgus and pes planus. 3. Erosion and flattening of the second metatarsal head articular surface which may be related old trauma or chronic arthritis Interpreted and Authenticated by: Guru Birch 07/06/16
--- NOTE | 2016-07-06 17:56 | XRay Report ---
CLINICAL INFORMATION: Follow up distal fibular fracture COMPARISON: 06/08/2016 FINDINGS: Since the study nearly one month prior, there has been moderate callus development of the Ruiz B oblique fracture of the lateral malleolus. Relationships remain anatomic. Small avulsion fracture off the dorsal cortex of the navicular is unchanged. Joint spaces are normal in width and alignment. There is mild diffuse soft tissue swelling IMPRESSION: Healing Ruiz B fracture of the lateral malleolus. Alignment is anatomic. Avulsion fracture of the dorsal cortex of the navicular - minimally displaced. No change Interpreted and Authenticated by: Guru Birch 07/06/16
[2016-07-06] MEDS: FAMOTIDINE 20 MG TABLET PO SCH (21:20)
[2016-07-07] MEDS: IPRATROPIUM/ALBUTEROL 3 ML AMPUL.NEB NEB SCH ×5 (00:16→18:45)
[2016-07-07] MEDS: 0.9 % SODIUM CHLORIDE 10 ML SYRINGE IV SCH ×3 (06:55→21:07)
[2016-07-07] MEDS: LEVOTHYROXINE 50 MCG TABLET PO SCH (07:27)
[2016-07-07] MEDS: TIOTROPIUM BR INH SCH (08:04)
[2016-07-07] MEDS: OLODATEROL HCL INH SCH (08:04)
[2016-07-07] MEDS: HYDROcodone/APAP 5/325MG TABLET PO PRN ×2 (08:14→13:01)
[2016-07-07] MEDS: POTASSIUM CHLORIDE 10 MEQ TABLET PO SCH (08:16)
[2016-07-07] MEDS: ASPIRIN 325 MG ENTERIC COATED TABLET PO SCH (09:40)
[2016-07-07] MEDS: VENLAFAXINE 75 MG CAP.XL.24H PO SCH (09:41)
[2016-07-07] MEDS: FUROSEMIDE 20 MG TABLET PO SCH (09:42)
[2016-07-07] MEDS: VITAMIN D3 1,000 UNIT TABLET PO SCH (09:43)
[2016-07-07] MEDS: cefTRIAXone 2 GM in DEXTROSE 5% IN WATER 50 ML IV SCH (09:46)
[2016-07-07] MEDS: HEPARIN 5,000 UNIT/ML VIAL SQ SCH ×2 (10:04→21:05)
--- NOTE | 2016-07-07 10:37 | Internal Med Progress Note ---
Medical - PN: Subj Patient information: Note initiated : 07/07/16 at 10:34 am Service Date, if different from initiated Date: [] Patient: Elizabeth Robles 70 y/o F admitted on 07/06/16 for Weakness/UTI. Chief Complaint: [] Interval history: 07/03- Ms. Robles is a 70 year old female with multiple medical issues , presented to the ER after unable to get up from her toilet seat. The patient has been having a gradual decline in her functional status over many years, but predominantly so over last few weeks. The patient at baseline uses wheel chair to ambulate and sometimes uses a walker to stand, but mostly does not do much. She had a fall recently in may and developed a fracture of the left ankle, which further worsened her ambulatory status. a few days ago she was unable to do ADL/ get up from her bathroom, and EMS was called but she did not want to come in, today again with a similar problem she decided to come in. She denies any other complaints. she is morbidly obese with jagdish severe OA of knees and left ankle fractures which is supposed to be in a boot. Her it seems is not able to take good care of her. In the ER her vital signs were normal, her ua was positive for UTI, her bnp was mildly elevated, but she has no clinical signs of chf, lactate is normal. Patient also notes that she has a ulce on the gluteal region which could not be inspected due to habitus today in the ER . Of note she has h/o PELON but is non compliant with use of her cpap machine. The patient was deemed not safe to go back home given her decline in her functional status and was admitted to the hospital for further management. 07/06- patient clinically improved however requires 2 person assist. Unable to get out of bed. Extremely weak. Very high risk Decompensation if discharge. also recent left ankle fracture limiting ability to be await. pansensitive Escherichia coli UTI on antibiotic coverage. Case management to coordinate SNF transferdue to increasing weakness and requiring higher level and intensity of service due to inability to take care of herself. patient transfer him to inpatient status. Case management to coordinate SNF transfer for continued posthospitalization rehabilitation 07/07- patient doing well. Continues to be weak and lethargic unable to bear weight. Attempting physical therapy. Tolerating diet. No overnight fever chills nausea vomiting CP/SOB or concerns per staff - Constitutional Vitals: Vital Signs Temp Pulse Resp BP Pulse Ox 98.9 F 77 16 109/67 97 07/07/16 07:35 07/07/16 07:55 07/07/16 07:55 07/07/16 07:35 07/07/16 07:55 Period Temp Pulse Resp BP Sys/Robert Pulse Ox Last 24 Hr 97.5 F-98.9 F 77-92 14-24 104-110/55-69 85-98 Intake and Output 07/06/16 07/07/16 07/07/16 21:59 05:59 13:59 Intake Total 750 / 750 180 / 180 Output Total 1450 / 1450 575 / 575 Balance -700 / -700 -395 / -395 Weight 340 lb 8 oz Intake & Output: Intake & Output 07/06/16 07/07/16 07/07/16 21:59 05:59 13:59 Intake Total 750 / 750 180 / 180 Output Total 1450 / 1450 575 / 575 Balance -700 / -700 -395 / -395 Weight 340 lb 8 oz Intake: Oral 750 / 750 180 / 180 Output: Urine Catheter Amount 1450 / 1450 575 / 575 Other: Meal Dinner Percent of Meal Consumed 100% General appearance: cooperative, morbidly obese Exam: nonlabored breathing nondistressed No pallor Pendulous abdomen Medical - PN: Obj Da - Labs CBC & Chem 7: 07/04/16 08:05 07/04/16 08:05 Meds: Medications Acetaminophen (Tylenol) 650 mg PO Q6HP PRN PRN Reason: PAIN/FEVER > 101 Acetaminophen/Hydrocodone Bitart ([place] 5/325mg) 1 tab PO Q4HP PRN PRN Reason: Pain Last Admin: 07/07/16 08:14 Dose: 1 tab Albuterol/Ipratropium (Duoneb) 3 ml NEB Q6HRT [facility] Last Admin: 07/07/16 07:21 Dose: 3 ml Aspirin (Ecotrin) 325 mg PO DAILY [facility] Last Admin: 07/07/16 09:40 Dose: 325 mg Diphenhydramine HCl (Benadryl) 50 mg PO QHS PRN PRN Reason: Insomnia Famotidine (Pepcid) 20 mg PO HS [facility] Last Admin: 07/06/16 21:20 Dose: 20 mg Furosemide (Lasix) 40 mg PO QDAY [facility] Last Admin: 07/07/16 09:42 Dose: 40 mg Heparin Sodium (Porcine) (Heparin) 5,000 unit SQ Q12 [facility] Last Admin: 07/07/16 10:04 Dose: 5,000 unit Ceftriaxone Sodium 2 gm/ (Dextrose) 50 mls @ 100 mls/hr IV Q24H [facility] Last Admin: 07/07/16 09:46 Dose: 100 mls/hr Levothyroxine Sodium (Synthroid) 50 mcg PO QAMAC [facility] Last Admin: 07/07/16 07:27 Dose: 50 mcg Naloxone HCl (Narcan) 0.1 mg IV Q2MIN PRN PRN Reason: Opiate Reversal Ondansetron HCl (Zofran) 4 mg IV Q6HP PRN PRN Reason: Nausea And Vomiting Fluticasone Furoate [Arnuity Ellipta] 200 Mcg Inhaler 1 dose INH QDAY [facility] Last Admin: 07/07/16 08:03 Dose: 1 dose Tiotropium Br/Olodaterol Hcl [ Stiolto Respimat] 2. 5/2.5 Mcg Inhaler 2 dose INH QDAY [facility] Last Admin: 07/07/16 08:04 Dose: 2 dose Potassium Chloride (Kdur) 20 meq PO [facility] Last Admin: 07/07/16 08:16 Dose: 20 meq Sodium Chloride (Saline Flush) 10 ml IV Q8 [facility] Last Admin: 07/07/16 06:55 Dose: 10 ml Venlafaxine HCl (Effexor Xr) 75 mg PO QDAY [facility] Last Admin: 07/07/16 09:41 Dose: 75 mg Vitamin D (Vitamin D3) 2,000 unit PO DAILY [facility] Last Admin: 07/07/16 09:43 Dose: 2,000 unit Medical - PN: A/P - Time Spent With Patient Total time spent is greater than 50% in coordination of care (as documented) at patient's floor/unit and/or counseling patient: 15 - 24 minutes (1) Complicated UTI (urinary tract infection) Status: Acute Assessment and plan: * Complicated Escherichia coli UTI-clinical improvement noted on antibiotics. Continue for additional 3 days * Severe deconditioning secondary to morbid obesity and inability to take care of self-case management to coordinate SNF transfer * left ankle fracture-avulsion/November fracture on repeat imaging. Consult orthopedics * History of COPD onbronchodilators * Hypothyroidism on thyroxine * Anxiety disorder on venlafaxine * gERD on ranitidine plan * transfer to inpatient status Due to high risk deconditioning and need for SNF * continue antibiotic coverage * orthopedics consult * Pre-existing medical condition management as above * Case management to coordinate SNF transfer Current Visit: Yes Medical - PN: Qual - VTE Deep Vein Thrombosis/Pulmonary Embolism Present on Admission: No
[2016-07-07] MEDS ORDERED: NALOXONE HCL 0.4 MG/ML VIAL IV PRN (11:12)
[2016-07-07] MEDS ORDERED: ONDANSETRON 4 MG/2 ML VIAL IV PRN (11:12)
[2016-07-07] MEDS ORDERED: BISACODYL 10 MG SUPP.RECT PR PRN (15:57)
[2016-07-07] MEDS ORDERED: FLEETS ADULT ENEMA PR PRN (15:57)
[2016-07-07] MEDS ORDERED: diphenhydrAMINE 25 MG CAPSULE PO PRN (21:00)
[2016-07-07] MEDS: FAMOTIDINE 20 MG TABLET PO SCH (21:07)
[2016-07-07] MEDS: DOCUSATE SODIUM 100 MG CAPSULE PO SCH (21:07)
[2016-07-08] MEDS: IPRATROPIUM/ALBUTEROL 3 ML AMPUL.NEB NEB SCH ×4 (01:58→18:39)
[2016-07-08] MEDS: HYDROcodone/APAP 5/325MG TABLET PO PRN ×2 (02:01→09:13)
[2016-07-08] MEDS: 0.9 % SODIUM CHLORIDE 10 ML SYRINGE IV SCH ×3 (05:53→20:34)
[2016-07-08] MEDS: OLODATEROL HCL INH SCH (07:50)
[2016-07-08] MEDS: TIOTROPIUM BR INH SCH (07:50)
[2016-07-08] MEDS: LEVOTHYROXINE 50 MCG TABLET PO SCH (08:12)
[2016-07-08] MEDS: POTASSIUM CHLORIDE 10 MEQ TABLET PO SCH (09:01)
[2016-07-08] MEDS: VENLAFAXINE 75 MG CAP.XL.24H PO SCH (09:01)
[2016-07-08] MEDS: VITAMIN D3 1,000 UNIT TABLET PO SCH (09:01)
[2016-07-08] MEDS: DOCUSATE SODIUM 100 MG CAPSULE PO SCH ×2 (09:01→20:40)
[2016-07-08] MEDS: FUROSEMIDE 20 MG TABLET PO SCH (09:02)
[2016-07-08] MEDS: MAGNESIUM HYDROXIDE 30 ML ORAL.SUSP PO PRN (09:02)
[2016-07-08] MEDS: cefTRIAXone 2 GM in DEXTROSE 5% IN WATER 50 ML IV SCH (09:02)
[2016-07-08] MEDS: ASPIRIN 325 MG ENTERIC COATED TABLET PO SCH (09:02)
[2016-07-08] MEDS: HEPARIN 5,000 UNIT/ML VIAL SQ SCH ×2 (09:02→20:31)
--- NOTE | 2016-07-08 11:43 | Internal Med Progress Note ---
Medical - PN: Subj Patient information: Note initiated : 07/08/16 at 11:42 am Service Date, if different from initiated Date: [] Patient: Elizabeth Robles 70 y/o F admitted on 07/06/16 for Weakness/UTI. Chief Complaint: [] Interval history: 07/03- Ms. Robles is a 70 year old female with multiple medical issues , presented to the ER after unable to get up from her toilet seat. The patient has been having a gradual decline in her functional status over many years, but predominantly so over last few weeks. The patient at baseline uses wheel chair to ambulate and sometimes uses a walker to stand, but mostly does not do much. She had a fall recently in may and developed a fracture of the left ankle, which further worsened her ambulatory status. a few days ago she was unable to do ADL/ get up from her bathroom, and EMS was called but she did not want to come in, today again with a similar problem she decided to come in. She denies any other complaints. she is morbidly obese with jagdish severe OA of knees and left ankle fractures which is supposed to be in a boot. Her it seems is not able to take good care of her. In the ER her vital signs were normal, her ua was positive for UTI, her bnp was mildly elevated, but she has no clinical signs of chf, lactate is normal. Patient also notes that she has a ulce on the gluteal region which could not be inspected due to habitus today in the ER . Of note she has h/o PELON but is non compliant with use of her cpap machine. The patient was deemed not safe to go back home given her decline in her functional status and was admitted to the hospital for further management. 07/06- patient clinically improved however requires 2 person assist. Unable to get out of bed. Extremely weak. Very high risk Decompensation if discharge. also recent left ankle fracture limiting ability to be await. pansensitive Escherichia coli UTI on antibiotic coverage. Case management to coordinate SNF transferdue to increasing weakness and requiring higher level and intensity of service due to inability to take care of herself. patient transfer him to inpatient status. Case management to coordinate SNF transfer for continued posthospitalization rehabilitation 07/07- patient doing well. Continues to be weak and lethargic unable to bear weight. Attempting physical therapy. Tolerating diet. No overnight fever chills nausea vomiting CP/SOB or concerns per staff 05/07- atient doing well. Foleys catheter draining clear urine. Await SNF transfer likely Monday. patient severely incontinent. Attempt discontinuation of Wilkinson's. attempting physical therapy. Poorly motivated. - Constitutional Vitals: Vital Signs Temp Pulse Resp BP Pulse Ox 98.5 F 89 18 123/82 94 07/08/16 11:27 07/08/16 11:27 07/08/16 11:27 07/08/16 11:27 07/08/16 11:27 Period Temp Pulse Resp BP Sys/Robert Pulse Ox Last 24 Hr 97.7 F-98.5 F 80-92 16-24 105-123/62-82 91-97 Intake and Output 07/07/16 07/08/16 07/08/16 21:59 05:59 13:59 Intake Total 983 / 983 200 / 200 710 / 710 Output Total 400 / 400 900 / 900 Balance 583 / 583 -700 / -700 710 / 710 Weight 346 lb Intake & Output: Intake & Output 07/07/16 07/08/16 07/08/16 21:59 05:59 13:59 Intake Total 983 / 983 200 / 200 710 / 710 Output Total 400 / 400 900 / 900 Balance 583 / 583 -700 / -700 710 / 710 Weight 346 lb Intake: IV 50 / 50 Dextrose 5% in Water 50 50 / 50 ml @ 100 mls/hr IV DAILY SHAMAR with Rocephin 2 gm Rx #:[id number] Oral 983 / 983 200 / 200 660 / 660 Output: Urine Catheter Amount 400 / 400 900 / 900 Other: Meal Dinner Breakfast Percent of Meal Consumed 75% 100% Feeding Ability Independent General appearance: cooperative, no acute distress Exam: Morbidly obese Nonlabored breathing Foleys draining clear urine no anxiety Nondistended abdomen Medical - PN: Obj Da - Labs CBC & Chem 7: 07/08/16 11:48 07/08/16 11:48 Meds: Medications Acetaminophen (Tylenol) 650 mg PO Q6HP PRN PRN Reason: PAIN/FEVER > 101 Acetaminophen/Hydrocodone Bitart ([place] 5/325mg) 1 tab PO Q4HP PRN PRN Reason: Pain Last Admin: 07/08/16 09:13 Dose: 1 tab Albuterol/Ipratropium (Duoneb) 3 ml NEB Q6HRT [facility] Last Admin: 07/08/16 07:24 Dose: 3 ml Aspirin (Ecotrin) 325 mg PO DAILY [facility] Last Admin: 07/08/16 09:02 Dose: 325 mg Bisacodyl (Dulcolax) 10 mg [place] Q2-3DAYS PRN PRN Reason: Constipation Diphenhydramine HCl (Benadryl) 50 mg PO HSP PRN PRN Reason: Insomnia Docusate Sodium (Colace) 100 mg PO BID [facility] Last Admin: 07/08/16 09:01 Dose: 100 mg Famotidine (Pepcid) 20 mg PO HS [facility] Last Admin: 07/07/16 21:07 Dose: 20 mg Furosemide (Lasix) 40 mg PO QDAY [facility] Last Admin: 07/08/16 09:02 Dose: 40 mg Heparin Sodium (Porcine) (Heparin) 5,000 unit SQ Q12 [facility] Last Admin: 07/08/16 09:02 Dose: 5,000 unit Ceftriaxone Sodium 2 gm/ (Dextrose) 50 mls @ 100 mls/hr IV DAILY [facility] Last Infusion: 07/08/16 09:42 Dose: Infused Levothyroxine Sodium (Synthroid) 50 mcg PO QAMAC [facility] Last Admin: 07/08/16 08:12 Dose: 50 mcg Magnesium Hydroxide (Milk Of Magnesia) 30 ml PO DAILYP PRN PRN Reason: Constipation Last Admin: 07/08/16 09:02 Dose: 30 ml Naloxone HCl (Narcan) 0.1 mg IV Q2MIN PRN PRN Reason: Opiate Reversal Ondansetron HCl (Zofran) 4 mg IV Q6HP PRN PRN Reason: Nausea And Vomiting Fluticasone Furoate [Arnuity Ellipta] 200 Mcg Inhaler 1 dose INH QDAY [facility] Last Admin: 07/08/16 07:50 Dose: 1 dose Tiotropium Br/Olodaterol Hcl [ Stiolto Respimat] 2. 5/2.5 Mcg Inhaler 2 dose INH QDAY [facility] Last Admin: 07/08/16 07:50 Dose: 2 dose Potassium Chloride (Kdur) 20 meq PO QAMCC [facility] Last Admin: 07/08/16 09:01 Dose: 20 meq Sodium Biphosphate/Sodium Phosphate (Fleets Adult) 1 dose GA Q3-4DAYS PRN PRN Reason: Constipation Sodium Chloride (Saline Flush) 10 ml IV Q8 [facility] Last Admin: 07/08/16 05:53 Dose: 10 ml Venlafaxine HCl (Effexor Xr) 75 mg PO QDAY [facility] Last Admin: 07/08/16 09:01 Dose: 75 mg Vitamin D (Vitamin D3) 2,000 unit PO DAILY [facility] Last Admin: 07/08/16 09:01 Dose: 2,000 unit Medical - PN: A/P - Time Spent With Patient Total time spent is greater than 50% in coordination of care (as documented) at patient's floor/unit and/or counseling patient: 25 - 35 minutes (1) Complicated UTI (urinary tract infection) Status: Acute Assessment and plan: * Complicated Escherichia coli UTI- Continue antibiotic for additional 2 days * Severe deconditioning secondary to morbid obesity and inability to take care of self- ongoing aggressive physical therapy. Patient agreeable to SNF transfer.. * left ankle fracture-avulsion/November fracture on repeat imaging. Orthopedics consulted. recommends ankle boot * History of COPD onbronchodilators * Hypothyroidism on thyroxine * Anxiety disorder on venlafaxine * GERD on ranitidine * DVT prophylaxis on heparin plan * ABX for additional 2 days * ankle boot * PT OT * Pre-existing medical condition management as above * SNF transfer likely Monday Current Visit: Yes Medical - PN: Qual - VTE Deep Vein Thrombosis/Pulmonary Embolism Present on Admission: No
[2016-07-08 12:30] LABS: Mean Cell Volume 96.9 fL (80.0-100.0); Platelet Count 210 K/mcL (140-440); RBC 3.46 M/mcL (4.00-5.20); Red Cell Distribution Width 14.4 % (11.5-14.5)
[2016-07-08 12:55] LABS: ALT/SGPT 12 U/l (0-40); Albumin 3.5 gm/dL (3.2-5.2); Albumin/Globulin Ratio 1.1 (1.0-2.3); Alkaline Phosphatase 78 U/L (39-117); Bilirubin,Direct < 0.2 mg/dL (0.0-0.3); Blood Urea Nitrogen 13 mg/dl (8-23); Gamma Glutamyl Transpeptidase 16 U/L (5-36); Phosphorous 3.3 mg/dL (2.7-4.5); Uric Acid 8.3 mg/dL (2.5-8.0)
[2016-07-08 14:10] LABS: Eosinophils % (Manual) 9 % (0-7); Lymphocytes % 20 % (15-49); Monocytes % (Manual) 7 % (1-9); Platelet Estimate NORMAL (NORMAL); RBC Morphology NORMAL (NORMAL); Segmented Neutrophils % 64 % (38-78)
[2016-07-08] MEDS: ACETAMINOPHEN 325 MG TABLET PO PRN (18:07)
[2016-07-08] MEDS: FAMOTIDINE 20 MG TABLET PO SCH (20:33)
[2016-07-09] MEDS: IPRATROPIUM/ALBUTEROL 3 ML AMPUL.NEB NEB SCH ×4 (01:41→18:18)
[2016-07-09] MEDS: 0.9 % SODIUM CHLORIDE 10 ML SYRINGE IV SCH ×2 (05:51→13:59)
[2016-07-09] MEDS: ACETAMINOPHEN 325 MG TABLET PO PRN ×2 (07:13→12:55)
[2016-07-09] MEDS: LEVOTHYROXINE 50 MCG TABLET PO SCH (07:13)
[2016-07-09] MEDS: OLODATEROL HCL INH SCH (08:47)
[2016-07-09] MEDS: TIOTROPIUM BR INH SCH (08:47)
[2016-07-09] MEDS: VITAMIN D3 1,000 UNIT TABLET PO SCH (08:50)
[2016-07-09] MEDS: POTASSIUM CHLORIDE 10 MEQ TABLET PO SCH (08:50)
[2016-07-09] MEDS: ASPIRIN 325 MG ENTERIC COATED TABLET PO SCH (08:51)
[2016-07-09] MEDS: VENLAFAXINE 75 MG CAP.XL.24H PO SCH (08:51)
[2016-07-09] MEDS: DOCUSATE SODIUM 100 MG CAPSULE PO SCH ×2 (08:51→20:09)
[2016-07-09] MEDS: FUROSEMIDE 20 MG TABLET PO SCH (08:51)
[2016-07-09] MEDS: HEPARIN 5,000 UNIT/ML VIAL SQ SCH ×2 (08:51→20:09)
[2016-07-09] MEDS: cefTRIAXone 2 GM in DEXTROSE 5% IN WATER 50 ML IV SCH (08:52)
[2016-07-09] MEDS: MAGNESIUM HYDROXIDE 30 ML ORAL.SUSP PO PRN (09:11)
--- NOTE | 2016-07-09 09:39 | Internal Med Progress Note ---
Medical - PN: Subj Patient information: Note initiated : 07/09/16 at 9:37 am Service Date, if different from initiated Date: [] Patient: Elizabeth Robles 70 y/o F admitted on 07/06/16 for Weakness/UTI. Chief Complaint: [] Interval history: 07/03- Ms. Robles is a 70 year old female with multiple medical issues , presented to the ER after unable to get up from her toilet seat. The patient has been having a gradual decline in her functional status over many years, but predominantly so over last few weeks. The patient at baseline uses wheel chair to ambulate and sometimes uses a walker to stand, but mostly does not do much. She had a fall recently in may and developed a fracture of the left ankle, which further worsened her ambulatory status. a few days ago she was unable to do ADL/ get up from her bathroom, and EMS was called but she did not want to come in, today again with a similar problem she decided to come in. She denies any other complaints. she is morbidly obese with jagdish severe OA of knees and left ankle fractures which is supposed to be in a boot. Her it seems is not able to take good care of her. In the ER her vital signs were normal, her ua was positive for UTI, her bnp was mildly elevated, but she has no clinical signs of chf, lactate is normal. Patient also notes that she has a ulce on the gluteal region which could not be inspected due to habitus today in the ER . Of note she has h/o PELON but is non compliant with use of her cpap machine. The patient was deemed not safe to go back home given her decline in her functional status and was admitted to the hospital for further management. 07/06- patient clinically improved however requires 2 person assist. Unable to get out of bed. Extremely weak. Very high risk Decompensation if discharge. also recent left ankle fracture limiting ability to be await. pansensitive Escherichia coli UTI on antibiotic coverage. Case management to coordinate SNF transferdue to increasing weakness and requiring higher level and intensity of service due to inability to take care of herself. patient transfer him to inpatient status. Case management to coordinate SNF transfer for continued posthospitalization rehabilitation 07/07- patient doing well. Continues to be weak and lethargic unable to bear weight. Attempting physical therapy. Tolerating diet. No overnight fever chills nausea vomiting CP/SOB or concerns per staff 05/07- atient doing well. Foleys catheter draining clear urine. Await SNF transfer likely Monday. patient severely incontinent. Attempt discontinuation of Wilkinson's. attempting physical therapy. Poorly motivated. 05/08-no overnight events noted fever chills nausea vomiting. No concerns per staff. Able to ambulate from bed to bedside commode. Able to bear weight. tolerating diet. Discontinued Foleys today. - Constitutional Vitals: Vital Signs Temp Pulse Resp BP Pulse Ox 97.4 F L 75 16 117/78 94 07/09/16 06:59 07/09/16 04:00 07/09/16 06:59 07/09/16 06:59 07/09/16 07:19 Period Temp Pulse Resp BP Sys/Robert Pulse Ox Last 24 Hr 97.4 F-98.5 F 74-89 16-21 114-134/56-88 92-95 Intake and Output 07/08/16 07/09/16 07/09/16 21:59 05:59 13:59 Intake Total 610 / 610 500 / 500 Output Total 220 / 220 1050 / 1050 Balance 390 / 390 -550 / -550 Weight 336 lb 8 oz Intake & Output: Intake & Output 07/08/16 07/09/16 07/09/16 21:59 05:59 13:59 Intake Total 610 / 610 500 / 500 Output Total 220 / 220 1050 / 1050 Balance 390 / 390 -550 / -550 Weight 336 lb 8 oz Intake: Oral 610 / 610 500 / 500 Output: Urine Catheter Amount 220 / 220 1050 / 1050 Other: Meal Dinner Percent of Meal Consumed 100% General appearance: morbidly obese, no acute distress Exam: Nondistressed no anxiety Foleys draining clear urine no Lymphedema Medical - PN: Obj Da - Labs CBC & Chem 7: 07/08/16 11:48 07/08/16 11:48 Labs: Abnormal Lab Results 07/08/16 07/08/16 11:48 11:48 RBC 3.46 L Hgb 10.7 L Hct 33.5 L Eosinophils % (Manual) 9 H Chloride 95 L Carbon Dioxide 38 H Uric Acid 8.3 H Meds: Medications Acetaminophen (Tylenol) 650 mg PO Q6HP PRN PRN Reason: PAIN/FEVER > 101 Last Admin: 07/09/16 07:13 Dose: 650 mg Acetaminophen/Hydrocodone Bitart ([place] 5/325mg) 1 tab PO Q4HP PRN PRN Reason: Pain Last Admin: 07/08/16 09:13 Dose: 1 tab Albuterol/Ipratropium (Duoneb) 3 ml NEB Q6HRT [facility] Last Admin: 07/09/16 08:40 Dose: 3 ml Aspirin (Ecotrin) 325 mg PO DAILY [facility] Last Admin: 07/09/16 08:51 Dose: 325 mg Bisacodyl (Dulcolax) 10 mg [place] Q2-3DAYS PRN PRN Reason: Constipation Diphenhydramine HCl (Benadryl) 50 mg PO HSP PRN PRN Reason: Insomnia Docusate Sodium (Colace) 100 mg PO BID [facility] Last Admin: 07/09/16 08:51 Dose: 100 mg Famotidine (Pepcid) 20 mg PO HS [facility] Last Admin: 07/08/16 20:33 Dose: 20 mg Furosemide (Lasix) 40 mg PO QDAY [facility] Last Admin: 07/09/16 08:51 Dose: 40 mg Heparin Sodium (Porcine) (Heparin) 5,000 unit SQ Q12 [facility] Last Admin: 07/09/16 08:51 Dose: 5,000 unit Ceftriaxone Sodium 2 gm/ (Dextrose) 50 mls @ 100 mls/hr IV DAILY [facility] Last Admin: 07/09/16 08:52 Dose: 100 mls/hr Ibuprofen (Motrin) 200 mg PO BIDP PRN PRN Reason: Pain Levothyroxine Sodium (Synthroid) 50 mcg PO QAMAC [facility] Last Admin: 07/09/16 07:13 Dose: 50 mcg Magnesium Hydroxide (Milk Of Magnesia) 30 ml PO DAILYP PRN PRN Reason: Constipation Last Admin: 07/09/16 09:11 Dose: 30 ml Naloxone HCl (Narcan) 0.1 mg IV Q2MIN PRN PRN Reason: Opiate Reversal Ondansetron HCl (Zofran) 4 mg IV Q6HP PRN PRN Reason: Nausea And Vomiting Fluticasone Furoate [Arnuity Ellipta] 200 Mcg Inhaler 1 dose INH QDAY [facility] Last Admin: 07/09/16 08:47 Dose: 1 dose Tiotropium Br/Olodaterol Hcl [ Stiolto Respimat] 2. 5/2.5 Mcg Inhaler 2 dose INH QDAY [facility] Last Admin: 07/09/16 08:47 Dose: 2 dose Potassium Chloride (Kdur) 20 meq PO QAC [facility] Last Admin: 07/09/16 08:50 Dose: 20 meq Sodium Biphosphate/Sodium Phosphate (Fleets Adult) 1 dose [place] Q3-4DAYS PRN PRN Reason: Constipation Sodium Chloride (Saline Flush) 10 ml IV Q8 [facility] Last Admin: 07/09/16 05:51 Dose: 10 ml Venlafaxine HCl (Effexor Xr) 75 mg PO QDAY [facility] Last Admin: 07/09/16 08:51 Dose: 75 mg Vitamin D (Vitamin D3) 2,000 unit PO DAILY [facility] Last Admin: 07/09/16 08:50 Dose: 2,000 unit Medical - PN: A/P - Time Spent With Patient Total time spent is greater than 50% in coordination of care (as documented) at patient's floor/unit and/or counseling patient: 15 - 24 minutes (1) Complicated UTI (urinary tract infection) Status: Acute Assessment and plan: * Complicated Escherichia coli UTI- antibiotics for additional 24 hours. * Severe deconditioning secondary to morbid obesity and inability to take care of self- continue physical therapy. Anticipate SNF transfer in 48 hours * Left ankle fracture-avulsion- nonoperative. Orthopedics recommends ankle boot. * History of COPD -continue home bronchodilators * Hypothyroidism on thyroxine * Anxiety disorder on venlafaxine * GERD on ranitidine * DVT prophylaxis on heparin plan * DC antibiotics in 24 hours * continue ankle boot during ambulation * continue PT OT * Pre-existing medical condition management as above * await SNF transfer Current Visit: Yes Medical - PN: Qual - VTE Deep Vein Thrombosis/Pulmonary Embolism Present on Admission: No
[2016-07-09] MEDS: IBUPROFEN 200 MG TABLET PO PRN (17:22)
[2016-07-09] MEDS: FAMOTIDINE 20 MG TABLET PO SCH (20:09)
[2016-07-09] MEDS: HYDROcodone/APAP 5/325MG TABLET PO PRN (20:14)
[2016-07-10] MEDS: 0.9 % SODIUM CHLORIDE 10 ML SYRINGE IV SCH ×4 (00:23→20:14)
[2016-07-10] MEDS: IPRATROPIUM/ALBUTEROL 3 ML AMPUL.NEB NEB SCH ×4 (01:14→19:38)
[2016-07-10] MEDS: ACETAMINOPHEN 325 MG TABLET PO PRN ×2 (01:39→23:11)
[2016-07-10] MEDS: LEVOTHYROXINE 50 MCG TABLET PO SCH (07:00)
[2016-07-10] MEDS: HYDROcodone/APAP 5/325MG TABLET PO PRN (07:00)
[2016-07-10] MEDS: OLODATEROL HCL INH SCH (07:15)
[2016-07-10] MEDS: TIOTROPIUM BR INH SCH (07:15)
[2016-07-10] MEDS: HEPARIN 5,000 UNIT/ML VIAL SQ SCH ×2 (09:13→20:13)
[2016-07-10] MEDS: VENLAFAXINE 75 MG CAP.XL.24H PO SCH (09:14)
[2016-07-10] MEDS: DOCUSATE SODIUM 100 MG CAPSULE PO SCH ×2 (09:14→20:14)
[2016-07-10] MEDS: cefTRIAXone 2 GM in DEXTROSE 5% IN WATER 50 ML IV SCH (09:14)
[2016-07-10] MEDS: ASPIRIN 325 MG ENTERIC COATED TABLET PO SCH (09:14)
[2016-07-10] MEDS: VITAMIN D3 1,000 UNIT TABLET PO SCH (09:14)
[2016-07-10] MEDS: FUROSEMIDE 20 MG TABLET PO SCH (09:14)
[2016-07-10] MEDS: POTASSIUM CHLORIDE 10 MEQ TABLET PO SCH (09:16)
--- NOTE | 2016-07-10 10:43 | Internal Med Progress Note ---
Medical - PN: Subj Patient information: Note initiated : 07/10/16 at 10:43 am Service Date, if different from initiated Date: [] Patient: Elizabeth Robles 70 y/o F admitted on 07/06/16 for Weakness/UTI. Chief Complaint: [] Interval history: 07/05- patient admitted with scrotal/perineal cellulitis with extensive necrosis/ ulceration. Wound care consulted. Started on broad antibiotic coverage in light of multidrug resistant VRE/Klebsiella. Admitted to medical floor 07/06- patient due for surgical debridement. Case discussed with Dr. Go wound care physician. Continue antibiotic coverage. Keep nothing by mouth. Review postop. Pre-existing medical condition management on home meds including diabetes/ntispasmodics for paraplegic spasm 07/07-patient doing well status post operative debridement . refusing LTAC transfer. Ongoing wound care /antibiotics. no overnight fever chills or concerns per staff 07/08- case management coordinating local SNF transfer. Postoperative day 2. On antibiotic coverage. initial wound culture enterococci. Await final sensitivities for tailoring antibiotic as outpatient. No other concerns per staff 07/09- patient on ertapenem/levaquin for enterococci/strep viridans on culture. Continue wound care. Await SNF transfer likely Monday or Monday. UA significant pyuria. On antibiotic coverage. no overnight fever chills or concerns per staff 07/10- patient doing well. Awaiting SNF transfer. On antibiotic coverage. no overnight fever chills nausea vomiting. No concerns per staff. - Constitutional Vitals: Vital Signs Temp Pulse Resp BP Pulse Ox 97.2 F L 71 18 122/78 90 07/10/16 06:22 07/10/16 07:11 07/10/16 07:11 07/10/16 06:22 07/10/16 07:11 Period Temp Pulse Resp BP Sys/Robert Pulse Ox Last 24 Hr 97.2 F-98.4 F 71-88 16-20 106-137/65-79 90-96 Intake and Output 07/09/16 07/10/16 07/10/16 21:59 05:59 13:59 Intake Total 380 / 380 400 / 400 330 / 330 Output Total 3 / 3 Balance 380 / 380 397 / 397 329 / 329 Weight 336 lb 5 oz Intake & Output: Intake & Output 07/09/16 07/10/16 07/10/16 21:59 05:59 13:59 Intake Total 380 / 380 400 / 400 330 / 330 Output Total Balance 380 / 380 397 / 397 329 / 329 Weight 336 lb 5 oz Intake: IV 50 / 50 Dextrose 5% in Water 50 50 / 50 ml @ 100 mls/hr IV DAILY SHAMAR with Rocephin 2 gm Rx #:[id number] Oral 380 / 380 400 / 400 280 / 280 Output: # of times incontinent of urine Other: Meal Dinner snack Breakfast Percent of Meal Consumed 75% 100% 75% Feeding Ability Independent Assist with Tray Set Up # Voids 1 1 General appearance: cooperative, morbidly obese Exam: nonlabored breathing no lymphedema No pallor no anxiety Medical - PN: Obj Da - Labs CBC & Chem 7: 07/08/16 11:48 07/08/16 11:48 Labs: Abnormal Lab Results 07/08/16 07/08/16 11:48 11:48 RBC 3.46 L Hgb 10.7 L Hct 33.5 L Eosinophils % (Manual) 9 H Chloride 95 L Carbon Dioxide 38 H Uric Acid 8.3 H Meds: Medications Acetaminophen (Tylenol) 650 mg PO Q6HP PRN PRN Reason: PAIN/FEVER > 101 Last Admin: 07/10/16 01:39 Dose: 650 mg Acetaminophen/Hydrocodone Bitart ([place] 5/325mg) 1 tab PO Q4HP PRN PRN Reason: Pain Last Admin: 07/10/16 07:00 Dose: 1 tab Albuterol/Ipratropium (Duoneb) 3 ml NEB Q6HRT [facility] Last Admin: 07/10/16 07:06 Dose: 3 ml Aspirin (Ecotrin) 325 mg PO DAILY [facility] Last Admin: 07/10/16 09:14 Dose: 325 mg Bisacodyl (Dulcolax) 10 mg [place] Q2-3DAYS PRN PRN Reason: Constipation Last Admin: 07/10/16 08:51 Dose: 10 mg Diphenhydramine HCl (Benadryl) 50 mg PO HSP PRN PRN Reason: Insomnia Docusate Sodium (Colace) 100 mg PO BID [facility] Last Admin: 07/10/16 09:14 Dose: 100 mg Famotidine (Pepcid) 20 mg PO HS [facility] Last Admin: 07/09/16 20:09 Dose: 20 mg Furosemide (Lasix) 40 mg PO QDAY [facility] Last Admin: 07/10/16 09:14 Dose: 40 mg Heparin Sodium (Porcine) (Heparin) 5,000 unit SQ Q12 [facility] Last Admin: 07/10/16 09:13 Dose: 5,000 unit Ceftriaxone Sodium 2 gm/ (Dextrose) 50 mls @ 100 mls/hr IV DAILY [facility] Last Infusion: 07/10/16 09:56 Dose: Infused Ibuprofen (Motrin) 200 mg PO BIDP PRN PRN Reason: Pain Last Admin: 07/09/16 17:22 Dose: 200 mg [facility]) [facility] Admin: 07/10/16 07:00 Dose: 50 mcg Magnesium Hydroxide (Milk Of Magnesia) 30 ml PO DAILYP PRN PRN Reason: Constipation Last Admin: 07/09/16 09:11 Dose: 30 ml Naloxone HCl (Narcan) 0.1 mg IV Q2MIN PRN PRN Reason: Opiate Reversal Ondansetron HCl (Zofran) 4 mg IV Q6HP PRN PRN Reason: Nausea And Vomiting Fluticasone Furoate [Arnuity Ellipta] 200 Mcg Inhaler 1 dose INH QDAY [facility] Last Admin: 07/10/16 07:15 Dose: 1 dose Tiotropium Br/Olodaterol Hcl [ Stiolto Respimat] 2. 5/2.5 Mcg Inhaler 2 dose INH QDAY [facility] Last Admin: 07/10/16 07:15 Dose: 2 dose Potassium Chloride (Kdur) [address] [facility] Last Admin: 07/10/16 09:16 Dose: 20 meq Sodium Biphosphate/Sodium Phosphate (Fleets Adult) 1 dose [place] Q3-4DAYS PRN PRN Reason: Constipation Sodium Chloride (Saline Flush) 10 ml IV Q8 [facility] Last Admin: 07/10/16 07:22 Dose: 10 ml Venlafaxine HCl (Effexor Xr) 75 mg PO QDAY [facility] Last Admin: 07/10/16 09:14 Dose: 75 mg Vitamin D (Vitamin D3) 2,000 unit PO DAILY [facility] Last Admin: 07/10/16 09:14 Dose: 2,000 unit Medical - PN: A/P - Time Spent With Patient Total time spent is greater than 50% in coordination of care (as documented) at patient's floor/unit and/or counseling patient: 15 - 24 minutes (1) Complicated UTI (urinary tract infection) Status: Acute Assessment and plan: * Complicated Escherichia coli UTI- DC antibiotics in a.m. * Severe deconditioning secondary to morbid obesity and inability to take care of self- SNF transfer in a.m. * Left ankle fracture-avulsion- nonoperative. Orthopedics recommends ankle boot. * History of COPD -continue home bronchodilators * Hypothyroidism on thyroxine * Anxiety disorder on venlafaxine * GERD on ranitidine * DVT prophylaxis on heparin plan * DC antibiotics in a.m. * continue ankle boot during ambulation * continue PT OT * Pre-existing medical condition management as above * await SNF transfer Current Visit: Yes Medical - PN: Qual - VTE Deep Vein Thrombosis/Pulmonary Embolism Present on Admission: No
[2016-07-10] MEDS ORDERED: MAGNESIUM CITRATE 300 ML ORAL.SOL PO ONE (11:30)
[2016-07-10] MEDS: IBUPROFEN 200 MG TABLET PO PRN (17:22)
[2016-07-10] MEDS: FAMOTIDINE 20 MG TABLET PO SCH (20:14)
[2016-07-11] MEDS: IPRATROPIUM/ALBUTEROL 3 ML AMPUL.NEB NEB SCH ×2 (01:18→07:05)
[2016-07-11] MEDS: OLODATEROL HCL INH SCH (07:05)
[2016-07-11] MEDS: TIOTROPIUM BR INH SCH (07:05)
[2016-07-11] MEDS: POTASSIUM CHLORIDE 10 MEQ TABLET PO SCH (07:28)
[2016-07-11] MEDS: 0.9 % SODIUM CHLORIDE 10 ML SYRINGE IV SCH (07:29)
[2016-07-11] MEDS: HYDROcodone/APAP 5/325MG TABLET PO PRN (07:29)
[2016-07-11] MEDS: LEVOTHYROXINE 50 MCG TABLET PO SCH (07:29)
--- NOTE | 2016-07-11 09:31 | Discharge Summary ---
Medical - DS: Prov Patient information: Note initiated : 07/11/16 at 9:28 am Service Date, if different from initiated Date: [] Patient: Elizabeth Robles 70 y/o F admitted on 07/06/16 for Weakness/UTI. Chief Complaint: [] Date of admission: 07/06/16 13:00 Discharge date: 07/11/16 Primary care physician: [f_Reg Prim Care Provider] Consults: 07/08/16 10:53 Consult to Physician [CONS] Routine Comment: Consulting Provider: Nikolai Reason For Exam: Physician to Consult Medical - DS: Meds - Discharge Medications Active and Home Medications: Home Medications polyethylene glycol 3350 17 gram/dose oral powder 17 g PO QHS each 12/11/14 [ History Confirmed 07/03/16 Last Taken 07/02/16 08:00] ranitidine 150 mg tablet 150 mg PO QHS tab 12/11/14 [History Confirmed Last Taken 07/01/16 22:00] B-complex with vitamin C tablet 1 tab-cap PO QDAY #30 tab 01/22/15 [Rx Confirmed 07/03/16 Last Taken 07/02/16 10:00] levalbuterol 1.25 mg/3 mL solution for nebulization 1.25 mg INHALATION QID ml 08/04/15 [History Confirmed 07/03/16 Last Taken 07/02/16 22:00] tiotropium 2.5 mcg-olodaterol 2.5 mcg/actuation mist for inhalation 2 inh INHALATION QDAY 08/04/15 [History Confirmed 07/03/16 Last Taken 07/02/16 10:00] aspirin 325 mg tablet 325 mg PO QDAY 01/14/16 [History Confirmed 07/03/16 Last Taken 07/02/16 10:00] bismuth subsalicylate 262 mg tablet 524 mg PO QID PRN 01/14/16 [History Confirmed 07/03/16 Last Taken 07/01/16 20:00] cholecalciferol (vitamin D3) 2,000 unit capsule 2,000 unit PO QDAY cap [History Confirmed 07/03/16 Last Taken 07/02/16 10:00] diphenhydramine 25 mg capsule 50 mg PO QHS PRN cap 01/14/16 [History Confirmed 07/03/16 Last Taken 06/02/16 22:00] levothyroxine 50 mcg tablet 50 mcg PO QDAY #60 tab 03/16/16 [Rx Confirmed Last Taken 07/02/16 10:00] furosemide 20 mg tablet 40 mg PO QDAY #60 tab 06/02/16 [Rx Confirmed 07/03/16 Last Taken 07/02/16 10:00] potassium chloride ER 10 mEq tablet,extended release 20 meq PO QDAY #60 tab [Rx Confirmed 07/03/16 Last Taken 07/02/16 10:00] HYDROcodone/APAP 5/325MG [[place] 5/325Mg] 1 - 2 tab PO Q4HP PRN #20 tab 06/08/16 [Rx Confirmed 07/03/16 Last Taken 07/02/16 22:00] venlafaxine ER 75 mg capsule,extended release 24 hr 75 mg PO QDAY #30 cap [Rx Confirmed 07/03/16 Last Taken 07/02/16 10:00] Medical - DS: Hosp Hospital course: Discharge diagnosis * Complicated Escherichia coli UTI- clinically resolved and off antibiotics. Discharging to SNF for continued posthospitalization rehabilitation * Severe deconditioning secondary to morbid obesity and inability to take care of self- SNF transfer * Left ankle fracture-avulsion- nonoperative. Orthopedics recommends ankle boot. continue while ambulating * History of COPD -continue home dose bronchodilators. oxygen if needed to keep sats around 88% * Hypothyroidism on thyroxine * Anxiety disorder on venlafaxine * GERD on ranitidine Brief hospital course 07/03- Ms. Robles is a 70 year old female with multiple medical issues , presented to the ER after unable to get up from her toilet seat. The patient has been having a gradual decline in her functional status over many years, but predominantly so over last few weeks. The patient at baseline uses wheel chair to ambulate and sometimes uses a walker to stand, but mostly does not do much. She had a fall recently in may and developed a fracture of the left ankle, which further worsened her ambulatory status. a few days ago she was unable to do ADL/ get up from her bathroom, and EMS was called but she did not want to come in, today again with a similar problem she decided to come in. She denies any other complaints. she is morbidly obese with jagdish severe OA of knees and left ankle fractures which is supposed to be in a boot. Her it seems is not able to take good care of her. In the ER her vital signs were normal, her ua was positive for UTI, her bnp was mildly elevated, but she has no clinical signs of chf, lactate is normal. Patient also notes that she has a ulce on the gluteal region which could not be inspected due to habitus today in the ER . Of note she has h/o PELON but is non compliant with use of her cpap machine. The patient was deemed not safe to go back home given her decline in her functional status and was admitted to the hospital for further management. 07/06- patient clinically improved however requires 2 person assist. Unable to get out of bed. Extremely weak. Very high risk Decompensation if discharge. also recent left ankle fracture limiting ability to be await. pansensitive Escherichia coli UTI on antibiotic coverage. Case management to coordinate SNF transferdue to increasing weakness and requiring higher level and intensity of service due to inability to take care of herself. patient transfer him to inpatient status. Case management to coordinate SNF transfer for continued posthospitalization rehabilitation 07/07- patient doing well. Continues to be weak and lethargic unable to bear weight. Attempting physical therapy. Tolerating diet. No overnight fever chills nausea vomiting CP/SOB or concerns per staff 05/07- atient doing well. Foleys catheter draining clear urine. Await SNF transfer likely Monday. patient severely incontinent. Attempt discontinuation of Wilkinson's. attempting physical therapy. Poorly motivated. 05/08-no overnight events noted fever chills nausea vomiting. No concerns per staff. Able to ambulate from bed to bedside commode. Able to bear weight. tolerating diet. Discontinued Foleys today. 07/10- patient doing well. Awaiting SNF transfer. On antibiotic coverage. no overnight fever chills nausea vomiting. No concerns per staff. plan to discontinue antibiotics in a.m.. 07/11- patient discharging to SNF for continued was hospitalized in rehabilitation. Recommended orthopedics boot during ambulation. Discharge diagnosis: complicated UTI, severe deconditioning - Time Spent with Patient Total time spent providing and/or coordinating discharge services: Greater than 30 minutes Medical - DS: Exam - Constitutional Vitals: Vital Signs Temp Pulse Pulse Resp BP BP Pulse Ox 07/11/16 07:53 86 12 97 07/11/16 07:50 88 16 07/11/16 04:00 98.3 F 84 18 124/74 94 07/10/16 23:36 97.9 F 88 20 114/73 95 07/10/16 19:56 97.7 F 80 20 109/66 95 07/10/16 19:40 80 95 07/10/16 19:39 95 07/10/16 19:38 82 18 07/10/16 15:54 97.3 F L 75 18 110/61 98 07/10/16 12:56 71 16 07/10/16 11:40 97.4 F L 16 115/74 94 Intake and Output 07/10/16 07/11/16 07/11/16 21:59 05:59 13:59 Intake Total 640 / 640 100 / 100 Output Total Balance 639 / 639 99 / 99 Intake: Oral 640 / 640 100 / 100 Output: # of times incontinent of urine Other: Meal Dinner Percent of Meal Consumed 100% # Voids 1 # Bowel Movements 1 Weight 333 lb 8 oz Medical - DS: A/P - Patient/Caregiver Discharge Instructions Activity: as per physical therapy, increase activity as tolerated Diet: Regular Diet Additional Instructions: Follow-up PCP in 5 days F/u orthopedics as scheduled by orthopedics for ankle fracture. Continue orthopedics boot as recommended I recommend SNF physician to check CBC BMP UA as a posthospital follow-up oxygen if needed to maintain sats around 88% Please schedule pulmonary function test as outpatient in 3 weeks Continue aggressive bowel regimen to prevent constipation Continue fall precautions Continue aggressive PT OT at [facility] All meals on chair sitting upright at 90 degrees to prevent aspiration Return to ER if worsening fever chills shortness of breath, diarrhea, bleeding Continue diet and activity as advised Discussed importance of medication adherence Please review medication list with patient prior to discharge Please schedule follow-up with PCP/Providers prior to discharge and provide printouts Portions of this chart may have been created with [employer] voice recognition software. Occasional wrong-word or ?sound-like? substitutions may have occurred due to the inherent limitations of voice recognition software. Please read the chart carefully and recognize, using context, where the substitutions have occurred. CC- PCP - Problem Maintenance (1) Complicated UTI (urinary tract infection) Status: Acute - Follow up Plan Follow up with: Angus Minor MD [Primary Care Provider] - Disposition: Xfer SNF Prognosis: Good Rehab Potential: Undetermined I certify that the patient requires SNF services: Yes Overall status at discharge: patient is progressing back to baseline Medical - DS: Qual - VTE Deep Vein Thrombosis/Pulmonary Embolism Present on Admission: No
[2016-07-11] MEDS: DOCUSATE SODIUM 100 MG CAPSULE PO SCH (10:55)
[2016-07-11] MEDS: VENLAFAXINE 75 MG CAP.XL.24H PO SCH (10:56)
[2016-07-11] MEDS: FUROSEMIDE 20 MG TABLET PO SCH (10:56)
[2016-07-11] MEDS: ASPIRIN 325 MG ENTERIC COATED TABLET PO SCH (10:56)
[2016-07-11] MEDS: VITAMIN D3 1,000 UNIT TABLET PO SCH (10:56)
[2016-07-11] MEDS: cefTRIAXone 2 GM in DEXTROSE 5% IN WATER 50 ML IV SCH (10:56)
[2016-07-11] MEDS: HEPARIN 5,000 UNIT/ML VIAL SQ SCH (10:56)
== END 2016-07-11 10:03 | DRG 690 ==
LOC: MEDSUR 12:01 → ED 12:01 → MEDSUR 19:45
PROVIDERS: ADMIT Internal Medicine; ATTEND Internal Medicine

== ENCOUNTER 2019-07-29 09:31 | Inpatient (IN) ==
--- NOTE | 2019-07-29 10:06 | Emergency Department Note ---
Weakness HPI - General Chief complaint: Weakness Stated complaint: failure to thrive, weakness Time Seen by Provider: 07/29/19 09:55 Source: patient, EMS Mode of arrival: EMS Limitations: no limitations - History of Present Illness HPI Narrative: This patient lives at home and for the last 3 weeks is had failure to thrive and not feeling well she does have a slight cough. She does use home oxygen. She has no nausea or vomiting but had slight abdominal tenderness with palpation. Denies chest pain. Does not feel short of breath. - Related Data Home Medications Medication Instructions Recorded Confirmed polyethylene glycol 3350 17 17 g PO QHS each 12/11/14 09/19/16 gram/dose oral powder ranitidine HCl 150 mg tablet 150 mg PO QHS tab 12/11/14 09/19/16 levalbuterol HCl 1.25 mg/3 mL 1.25 mg INHALATION QID ml 08/04/15 09/19/16 solution for nebulization tiotropium 2.5 mcg-olodaterol 2.5 2 inh INHALATION QDAY 08/04/15 09/19/16 mcg/actuation mist for inhalation aspirin 325 mg tablet 325 mg PO QDAY 01/14/16 09/19/16 cholecalciferol (vitamin D3) 50 2,000 unit PO QDAY cap 01/14/16 09/19/16 mcg (2,000 unit) capsule acetaminophen 500 mg capsule 500 mg PO .q8hr PRN cap 08/01/16 09/19/16 cyanocobalamin (vitamin B-12) 1,000 mcg IM QMONTH 08/05/16 09/19/16 1,000 mcg/mL injection solution ferrous sulfate 325 mg (65 mg 325 mg PO QDAY 08/05/16 09/19/16 iron) tablet fluticasone furoate 200 200 mcg INHALATION Q24H each 09/19/16 09/19/16 mcg/actuation blister powder for inhalation Previous Rx's Medication Instructions Recorded B-complex with vitamin C 1 tab-cap PO QDAY #30 tab 01/22/15 HYDROcodone/APAP 5/325MG [[place] 1 - 2 tab PO Q4HP PRN #20 tab 06/08/16 5-325Mg] Oxygen 3 L #1 each 09/20/16 albuterol sulfate 90 mcg/actuation 2 puff INHALATION .Q4-6H PRN #18 g 09/20/16 aerosol inhaler hydrocortisone 5 mg tablet 5 mg PO .COMPLEX #60 tab 10/17/16 potassium chloride 10 mEq 20 meq PO QDAY #60 tab 10/17/16 tablet,extended release calcipotriene 0.005 % topical cream 1 applic TOPICAL BID #240 g 11/07/16 furosemide 20 mg tablet 40 mg PO QDAY 30 Days #60 tab 11/23/16 venlafaxine 75 mg capsule,extended 75 mg PO QDAY #30 cap 11/29/16 release 24 hr Ciprofloxacin [Cipro] 250 mg PO BID #20 tab 06/21/18 Allergies Allergy/AdvReac Type Severity Reaction Status Date / Time Erythromycin Base Allergy Mild Rash Verified 06/21/18 11:31 Sulfa (Sulfonamide Allergy Mild Rash Verified 06/21/18 11:31 Antibiotics) tape Allergy Uncoded 06/21/18 11:31 Review of Systems All systems ED: reviewed and negative except as stated. Past Medical History - Past Medical History PMFSH Narrative: Medical History Laceration (Acute) Fracture of malleolus of left ankle (Acute) Urinary tract infection (Acute) Complicated UTI (urinary tract infection) (Acute) Left ankle sprain (Acute) Osteoarthritis (Chronic) Stomach problems (Chronic) Primary osteoarthritis of right hand (Chronic) Unilateral primary osteoarthritis of first carpometacarpal joint, right hand (Chronic) Carpal tunnel syndrome of right wrist (Chronic) Primary osteoarthritis of knees, bilateral (Chronic) Radiculopathy, cervical region (Chronic) Cobalamin deficiency (Chronic) Paresthesia (Chronic) Rotator cuff syndrome (Acute) 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) Peripheral vascular disease (Chronic) Pseudophakia (Chronic) Obstructive sleep apnea (Chronic) Obesity, morbid (Chronic) MRSA (methicillin resistant Staphylococcus aureus) (Chronic) Rhinitis, allergic (Chronic) Sleep apnea (Chronic) Tobacco abuse (Chronic 06/25/13) Migraine (Chronic) Lymphedema (Chronic) Disorder of kidney and ureter (Chronic) Hyperlipidemia (Chronic) Hypercholesterolemia (Chronic) HTN (hypertension) (Chronic) Heart disease (Chronic) Gastroesophageal reflux (Chronic) Fatigue (Chronic) Duodenal ulcer without hemorrhage, perforation, or obstruction (Chronic) Depression (Chronic) Dental disorder (Chronic) Coronary artery disease (Chronic) Constipation (Chronic) Chronic obstructive pulmonary disease (Chronic) Cardiomyopathy (Chronic) Blurred vision (Chronic) Urinary incontinence (Chronic) Blepharitis (Chronic) Chest pain, atypical (Chronic) Atrial fibrillation (Chronic) Asthma (Chronic) Arthritis (Chronic) Anxiety disorder (Chronic) After-cataract obscuring vision (Chronic) Fluid overload (Resolved) Pain in joint, ankle and foot (Resolved) Ulcer of ankle (Resolved) Urinary tract infection (Resolved 07/16/14) Congestive heart failure (Ruled-out) Past Surgical History H/O: hysterectomy (Acute) History of bladder suspension procedure (Resolved) History of breast biopsy (Resolved) History of cardiac catheterization (Resolved) History of carpal tunnel repair (Resolved) History of cataract surgery (Resolved) History of cholecystectomy (Resolved) History of hemorrhoidectomy (Resolved) History of hysterectomy (Resolved) Status post gastroplasty (Resolved) Family History Father Malignant neoplasm of lung Chronic obstructive pulmonary disease Sister Anxiety disorder Atrial fibrillation Chronic Kidney Disease Depression Type 2 diabetes mellitus Disorder of liver Mother Essential hypertension Atrial fibrillation Brother Atrial fibrillation Chronic Kidney Disease Type 2 diabetes mellitus Medical history: Reports: arthritis, asthma, atrial fibrillation, CHF, COPD, CAD (coronary artery disease), GERD, hyperlipidemia, hypertension, migraine, peripheral artery disease, thyroid disease, other (Hypothyroidism, carpal tunnel right wrist. Peripheral vascular disease, morbid obesity, GERD, migraine headache, hypercholesterolemia. Hypertension, oppression, to fibrillation, asthma,) Psychiatric history: Reports: anxiety, depression Surgical history ED: Reports: cataract, cholecystectomy, hysterectomy - Social History smoking status: Former smoker Alcohol use: Reports: None Drug use: Reports: none Physical Exam Limitations: no limitations General appearance: alert Head: atraumatic Eye: Present: normal appearance ENT: Present: normal exam Neck: Present: normal inspection Chest: Present: normal inspection Respiratory: Present: rales/crackles Cardiovascular: Present: regular rate, normal rhythm, normal heart sounds Abdominal: Present: soft. Absent: distention, tenderness Abdominal tenderness: Present: diffuse, mild Neurological: Present: alert Psychiatric: Present: normal affect Skin: Present: warm, dry Course Vital Signs Temperature 96.5 F L 07/29/19 09:33 Pulse Rate 118 H 07/29/19 09:33 Respiratory Rate 22 07/29/19 09:33 Pulse Oximetry (%) 85 L 07/29/19 09:33 Temperature 96.5 F L 07/29/19 09:45 Pulse Rate 83 07/29/19 12:50 Respiratory Rate 19 07/29/19 13:00 Blood Pressure 102/81 07/29/19 13:00 Pulse Oximetry (%) 86 L 07/29/19 12:50 Weakness - MDM Narrative Medical decision making narrative: Chest x-ray showed some mild heart failure. Blood gas showed a pH of 7.25 PCO2 of 120 PO2 128. I started her on BiPAP after that. She did seem to improve especially when keeping her O2 sats at about 88-89. She does have a urinary tract infection and was given Rocephin 1 g IV for that. She will be admitted to the hospital by Dr. Schmidt. - Lab Data Lab results reviewed: Yes I reviewed the patient's lab results. Result diagrams: 07/29/19 09:50 07/29/19 09:50 Lab Results 07/29/19 07/29/19 07/29/19 Range/Units 09:50 09:50 09:50 WBC 6.2 (4.50-11.00) K/mcL RBC 3.18 L (3.59-5.38) M/mcL Hgb 12.8 (11.2-15.7) g/dL Hct 41.7 (34.1-44.9) % MCV 131.1 H (80.0-100.0) fL MCH 40.3 H (26.0-34.0) pg MCHC 30.7 L (31.0-36.0) g/dL RDW 16.0 H (11.5-14.5) % Plt Count 101 L (140-440) K/mcL MPV 11.6 H (7.4-10.4) fL Total Counted 100 Seg Neutrophils % 76 (38-78) % Band Neutrophils % 4 (0-10) % Lymphocytes % 12 L (15-49) % Monocytes % (Manual) 6 (1-12) % Eosinophils % (Manual) 1 (0-7) % Basophils % (Manual) 1 (0-2) % Platelet Estimate Decreased (NORMAL) RBC Morphology Abnorm A (NORMAL) Polychromasia Few A (NONE SEEN) Anisocytosis 1+ A (NONE SEEN) Macrocytosis 3+ A (NONE SEEN) VBG Lactic Acid 1.4 (0.5-2.0) mmol/L Sodium 144 (133-145) mmol/L Potassium 4.8 (3.3-5.1) mmol/L Chloride 91 L (96-108) mmol/L Carbon Dioxide 45 H* (22-30) mmol/L Anion Gap 8.0 (8-16) BUN 17 (8-23) mg/dl Creatinine 0.4 L (0.6-1.1) mg/dl GFR Calculation 104 Glucose 137 H (70-105) mg/dL Calcium 9.5 (8.6-10.4) mg/dl Total Bilirubin 0.7 (0.0-1.0) mg/dL AST 19 (0-37) U/l ALT 7 (0-40) U/l Alkaline Phosphatase 70 (39-117) U/L Troponin T (0-0.03) ng/ml NT-Pro-B Natriuret Pep (0-125) pg/ml Total Protein 6.2 (5.9-8.4) gm/dL Albumin 3.1 L (3.2-5.2) gm/dL Globulin 3.1 (2.2-3.7) gm/dL Albumin/Globulin Ratio 1.0 (1.0-2.3) Urine Color Urine Appearance Urine pH (5.0-9.0) Ur Specific [place] (1.000-1.035) Urine Protein (NEG) mg/dL Urine Glucose (UA) (NEG) mg/dL Urine Ketones (NEG) mg/dL Urine Occult Blood (<0.03) mg/dL Urine Nitrate (NEG) Urine Bilirubin (NEG) mg/dL Urine Urobilinogen (NEG) mg/dL Ur Leukocyte Esterase (NEG) /uL Urine RBC (0-1) /hpf Urine WBC (0-4) /hpf Ur Squamous Epith Cells (0-4) /hpf Ur Transition Epith Cell (0-2) /hpf Urine Bacteria (0) /hpf Urine Mucus (0) /hpf Ur Culture Indicated? 07/29/19 07/29/19 07/29/19 Range/Units 09:50 09:55 11:00 WBC (4.50-11.00) K/mcL RBC (3.59-5.38) M/mcL Hgb (11.2-15.7) g/dL Hct (34.1-44.9) % MCV (80.0-100.0) fL MCH (26.0-34.0) pg MCHC (31.0-36.0) g/dL RDW (11.5-14.5) % Plt Count (140-440) K/mcL MPV (7.4-10.4) fL Total Counted Seg Neutrophils % (38-78) % Band Neutrophils % (0-10) % Lymphocytes % (15-49) % Monocytes % (Manual) (1-12) % Eosinophils % (Manual) (0-7) % Basophils % (Manual) (0-2) % Platelet Estimate (NORMAL) RBC Morphology (NORMAL) Polychromasia (NONE SEEN) Anisocytosis (NONE SEEN) Macrocytosis (NONE SEEN) VBG Lactic Acid (0.5-2.0) mmol/L Sodium (133-145) mmol/L Potassium (3.3-5.1) mmol/L Chloride (96-108) mmol/L Carbon Dioxide (22-30) mmol/L Anion Gap (8-16) BUN (8-23) mg/dl Creatinine (0.6-1.1) mg/dl GFR Calculation Glucose (70-105) mg/dL Calcium (8.6-10.4) mg/dl Total Bilirubin (0.0-1.0) mg/dL AST (0-37) U/l ALT (0-40) U/l Alkaline Phosphatase (39-117) U/L Troponin T 0.04 H* (0-0.03) ng/ml NT-Pro-B Natriuret Pep 1013.0 H (0-125) pg/ml Total Protein (5.9-8.4) gm/dL Albumin (3.2-5.2) gm/dL Globulin (2.2-3.7) gm/dL Albumin/Globulin Ratio (1.0-2.3) Urine Color Yellow Urine Appearance Cloudy Urine pH 6.0 (5.0-9.0) Ur Specific [place] 1.025 (1.000-1.035) Urine Protein 100 (2+) (NEG) mg/dL Urine Glucose (UA) Norm (NEG) mg/dL Urine Ketones 15 (1+) (NEG) mg/dL Urine Occult Blood 3+ (large) (<0.03) mg/dL Urine Nitrate Pos A (NEG) Urine Bilirubin (NEG) mg/dL Urine Urobilinogen 8 A (NEG) mg/dL Ur Leukocyte Esterase 1+ (small) (NEG) /uL Urine RBC > 182 H (0-1) /hpf Urine WBC > 182 H (0-4) /hpf Ur Squamous Epith Cells 3 (0-4) /hpf Ur Transition Epith Cell 1 (0-2) /hpf Urine Bacteria Many A (0) /hpf Urine Mucus Many A (0) /hpf Ur Culture Indicated? Yes - Radiology Data Radiology results reviewed: Yes I reviewed the patient's radiology results. Disposition Pt seen by RECONCILIATION ANALYST/PA only: No Clinical Impression: UTI (urinary tract infection), COPD exacerbation Disposition: Xfer As Inpt ([facility]) Condition: Fair Referrals: No,PCP [Primary Care Provider] - Time of Disposition: 13:25
[2019-07-29 10:22] LABS: Hematocrit 41.7 % (34.1-44.9); Hemoglobin 12.8 g/dL (11.2-15.7); Mean Cell Volume 131.1 fL (80.0-100.0); Mean Corpuscular HGB Conc 30.7 g/dL (31.0-36.0); Mean Platelet Volume 11.6 fL (7.4-10.4); RBC 3.18 M/mcL (3.59-5.38); WBC 6.2 K/mcL (4.50-11.00)
[2019-07-29 10:23] LABS: Platelet Count 101 K/mcL (140-440)
--- NOTE | 2019-07-29 10:23 | XRay Report ---
CLINICAL INFORMATION: low O2 sats, weakness COMPARISON: 06/21/2018 FINDINGS: Marked cardiomegaly is increased. Mediastinum is unremarkable. Upper lobe pulmonary vessels are slightly distended - there is no definite edema. Mild airspace disease in the left base is likely atelectasis. Small bilateral pleural effusions. IMPRESSION: Mild CHF. Mild left basilar atelectasis Interpreted and Authenticated by: Guru Birch 07/29/19
[2019-07-29 10:39] LABS: ALT/SGPT 7 U/l (0-40); AST/SGOT 19 U/l (0-37); Albumin 3.1 gm/dL (3.2-5.2); Alkaline Phosphatase 70 U/L (39-117); Bilirubin,Total 0.7 mg/dL (0.0-1.0); Blood Urea Nitrogen 17 mg/dl (8-23); Calcium 9.5 mg/dl (8.6-10.4); Globulin 3.1 gm/dL (2.2-3.7); Glomerular Filtration Rate 104; Glucose 137 mg/dL (70-105)
[2019-07-29 10:42] LABS: Carbon Dioxide 45 mmol/L (22-30); Chloride 91 mmol/L (96-108)
[2019-07-29 11:02] LABS: Anisocytosis 1+ (NONE SEEN); Band Neutrophils % 4 % (0-10); Basophils % (Manual) 1 % (0-2); Eosinophils % (Manual) 1 % (0-7); Lymphocytes % 12 % (15-49); Macrocytosis 3+ (NONE SEEN); Monocytes % (Manual) 6 % (1-12); Platelet Estimate DECREASED (NORMAL); Polychromasia FEW (NONE SEEN); RBC Morphology ABNORM (NORMAL); Segmented Neutrophils % 76 % (38-78)
[2019-07-29] MEDS ORDERED: LACTATED RINGERS 250 ML IV ONE (11:14)
[2019-07-29 12:00] LABS: Appearance,Urine CLOUDY; Bacteria,Urine MANY /hpf (0); Color,Urine YELLOW; Culture Indicated,Urine YES; Glucose,Urine (UA) NORM (NEG); Ketones,Urine 15 (1+) mg/dL (NEG); Leukocyte Esterase,Urine 1+ (SMALL) /uL (NEG); Mucus,Urine MANY /hpf (0); Nitrate,Urine POS (NEG); Protein,Urine 100 (2+) mg/dL (NEG); Specific Gravity,Urine 1.025 (1.000-1.035); Urine Blood 3+ (LARGE) mg/dL (<0.03); Urine RBC > 182 /hpf (0-1); Urine Squamous Epithelial Cell 3 /hpf (0-4); Urine Transitional Epi Cells 1 /hpf (0-2); Urine WBC > 182 /hpf (0-4); Urobilinogen,Urine 8 mg/dL (NEG)
[2019-07-29] MEDS ORDERED: cefTRIAXone 1 GM VIAL IV ONE ×2 (12:03→15:30)
--- NOTE | 2019-07-29 13:37 | Internal Med History&Physical ---
Medical - H&P: [facility] Patient information: Note initiated : 07/29/19 at 1:32 pm Service Date, if different from initiated Date: [] Patient: Elizabeth Robles 73 y/o F admitted on for failure to thrive, weakness. Chief Complaint: [] Chief complaint: Shortness of breath and weakness History of present illness: Ms. Robles is a 73 year old F morbidly obese with a history of COPD on home oxygen and multiple medical issues who presents to the ER with worsening weakness/failure to function. She also endorses to increasing cough along with increasing shortness of breath. She denies associated fever or chills or diarrhea. She lives at home but has noted a progressive decline in functional status. Notably patient has had multiple recent hospitalization with UTI/weakness and deconditioning/COPD exacerbations and has been battling multiple comorbidities. She now presents to the ER with above symptoms. During initial work-up she was noted to be confused. ABG revealed a PCO2 of 125. She was promptly started on noninvasive mechanical ventilation. UA was consistent with pyuria. Chest imaging consistent with CHF. Patient started antibiotic coverage and subsequently hospitalist service was consulted. At the time evaluation patient is alert and able to answer most of the questions. She is currently on BiPAP. She denies chest pain, fever, but endorses to cough. Review of systems A 10 point review system was performed and is negative except for ones cussed above Medical - H&P: Meds Home Medications Medication Instructions Recorded Confirmed Type polyethylene glycol 3350 17 17 g PO QHS each 12/11/14 07/29/19 History gram/dose oral powder B-complex with vitamin C 1 tab-cap PO QDAY #30 tab 01/22/15 07/29/19 Rx levalbuterol HCl 1.25 mg/3 mL 1.25 mg INHALATION QID ml 08/04/15 07/29/19 History solution for nebulization aspirin 325 mg tablet 325 mg PO QDAY 01/14/16 07/29/19 History cholecalciferol (vitamin D3) 50 2,000 unit PO QDAY cap 01/14/16 07/29/19 History mcg (2,000 unit) capsule acetaminophen 500 mg capsule 500 mg PO .q8hr PRN cap 08/01/16 07/29/19 History cyanocobalamin (vitamin B-12) 1,000 mcg IM QMONTH 08/05/16 07/29/19 History 1,000 mcg/mL injection solution ferrous sulfate 325 mg (65 mg 325 mg PO QDAY 08/05/16 07/29/19 History iron) tablet fluticasone furoate 200 200 mcg INHALATION Q24H each 09/19/16 07/29/19 History mcg/actuation blister powder for inhalation albuterol sulfate 90 mcg/actuation 2 puff INHALATION .Q4-6H PRN #18 g 09/20/16 07/29/19 Rx aerosol inhaler Ciprofloxacin [Cipro] 250 mg PO BID #20 tab 06/21/18 07/29/19 Rx Oxygen 3 L 1 dose .ROUTE DAILY 07/29/19 07/29/19 History Tiotropium Br/Olodaterol HCl 4 gm IH DAILY 07/29/19 07/29/19 History [Stiolto Respimat Inhal [place]] Allergies Allergy/AdvReac Type Severity Reaction Status Date / Time Erythromycin Base Allergy Mild Rash Verified 06/21/18 11:31 Sulfa (Sulfonamide Allergy Mild Rash Verified 06/21/18 11:31 Antibiotics) tape Allergy Uncoded 06/21/18 11:31 Medical - H&P: Exam - Constitutional Vitals: Temp Pulse Resp BP Pulse Ox 96.5 F L 83 19 102/81 86 L 07/29/19 09:45 07/29/19 12:50 07/29/19 13:00 07/29/19 13:00 07/29/19 12:50 General appearance: morbidly obese Exam: Anxious and lethargic On BiPAP Morbidly obese Head normocephalic oral cavity dry Neck no lymphadenopathy No ear nose discharge S1-S2 occasionally irregular, ESM grade 1 Diminished breath sounds bases Abdomen pendulous Lower extremity no cyanosis clubbing no joint swelling minimal lymphedema Skin no suspicious lesion psych anxious and lethargic Neuro nonfocal Medical - H&P: Reslt - Labs CBC & Chem 7: 07/30/19 05:30 07/30/19 05:30 Labs: Short CBC 07/29/19 Range/Units 09:50 WBC 6.2 (4.50-11.00) K/mcL Hgb 12.8 (11.2-15.7) g/dL Hct 41.7 (34.1-44.9) % Plt Count 101 L (140-440) K/mcL BMP 07/29/19 09:50 Sodium 144 Potassium 4.8 Chloride 91 L Carbon Dioxide 45 H* BUN 17 Creatinine 0.4 L Glucose 137 H Calcium 9.5 Cardiac Enzymes 07/29/19 Range/Units 09:55 Troponin T 0.04 H* (0-0.03) ng/ml Liver Function 07/29/19 Range/Units 09:50 Total Bilirubin 0.7 (0.0-1.0) mg/dL AST 19 (0-37) U/l ALT 7 (0-40) U/l Alkaline Phosphatase 70 (39-117) U/L Albumin 3.1 L (3.2-5.2) gm/dL Urine 07/29/19 Range/Units 11:00 Urine Color Yellow Urine Appearance Cloudy Urine pH 6.0 (5.0-9.0) Ur Specific [place] 1.025 (1.000-1.035) Urine Protein 100 (2+) (NEG) mg/dL Urine Glucose (UA) Norm (NEG) mg/dL Medical - H&P: A/P (1) Acute respiratory failure with hypoxia and hypercarbia Current visit: Yes Status: Acute * Acute respiratory failure with hypercapnia-initial blood gas 7.25/148/136 on 2 L oxygen secondary COPD exacerbation/CHF. Continue noninvasive mechanical ventilation. Serial ABG/chest imaging. * Acute decompensated heart failure noted on chest imaging-start diuresis, noninvasive ventilation, echocardiogram. Optimization of CHF management based on echo findings * COPD exacerbation continue bronchodilators/steroids/noninvasive ventilation. * Complicated UTI-was recently treated with ciprofloxacin. We will initiate Ro cephin for presumed quinolone resistance. De-escalate based on cultures and sensitivities. * Severe deconditioning secondary to morbid obesity and inability to take care of self-initiate PT OT eval/directed therapies * Hypothyroidism restart home dose thyroxine * Anxiety disorder continue venlafaxine * GERD on ranitidine * DVT prophylaxis on heparin plan * PCU admit light of [place] II score 17 * Antibiotic coverage * Noninvasive mechanical ventilation * Serial ABG/chest imaging * Echocardiogram/diuresis * PT OT * Pre-existing medical condition management home medications * Discharge planning per case management Critical care time spent in excess of 35 minutes on management of hypercapnic respiratory failure/noninvasive mechanical ventilation
[2019-07-29] MEDS ORDERED: POTASSIUM CHLORIDE 20 MEQ PACKET PO PRN (15:11)
[2019-07-29] MEDS ORDERED: ONDANSETRON 4 MG/2 ML VIAL IV PRN (15:11)
[2019-07-29] MEDS ORDERED: ONDANSETRON 4 MG ODT TABLET SL PRN (15:11)
[2019-07-29] MEDS ORDERED: MELATONIN 3 MG TABLET PO PRN (15:11)
[2019-07-29] MEDS ORDERED: BISACODYL 10 MG SUPP.RECT PR PRN (15:11)
[2019-07-29] MEDS ORDERED: POLYETHYLENE GLYCOL 3350 17 GM PACKET PO PRN (15:11)
[2019-07-29] MEDS ORDERED: ACETAMINOPHEN 325 MG TABLET PO PRN (15:11)
[2019-07-29] MEDS ORDERED: hydrALAZINE 20 MG/ML VIAL IV PRN (15:11)
[2019-07-29] MEDS ORDERED: ACETAMINOPHEN 650 MG/65 ML BOTTLE IV PRN (15:11)
[2019-07-29] MEDS ORDERED: MAGNESIUM SULFATE 2 GM/50 ML BAG IV PRN (15:11)
[2019-07-29] MEDS: FUROSEMIDE 40 MG/4 ML VIAL IV SCH (15:23)
[2019-07-29] MEDS ORDERED: IPRATROPIUM/ALBUTEROL 3 ML AMPUL.NEB NEB ONE (15:44)
[2019-07-29] MEDS: IPRATROPIUM/ALBUTEROL 3 ML AMPUL.NEB NEB SCH ×3 (15:45→22:55)
[2019-07-29] MEDS: 0.9 % SODIUM CHLORIDE 10 ML SYRINGE IV SCH ×2 (16:59→21:43)
[2019-07-29] MEDS: BUDESONIDE 0.5 MG/2 ML AMPUL.NEB NEB SCH (19:02)
[2019-07-29] MEDS ORDERED: FLUTICASONE FUROATE 200 MCG INHALATION SCH (19:30)
[2019-07-29] MEDS: FLUTICASONE FUROATE 200 MCG INH SCH (20:53)
[2019-07-29] MEDS: DOCUSATE SODIUM 100 MG CAPSULE PO SCH (21:42)
[2019-07-29] MEDS: HEPARIN 5,000 UNIT/ML VIAL SQ SCH (21:42)
[2019-07-29] MEDS: methylPREDNISolone SOD SUCC 125 MG/2 ML VIAL IV SCH (21:42)
[2019-07-29] MEDS: SENNOSIDES/DOCUSATE SODIUM 1 TAB TABLET PO SCH (21:42)
[2019-07-30] MEDS: IPRATROPIUM/ALBUTEROL 3 ML AMPUL.NEB NEB SCH ×6 (03:25→23:08)
[2019-07-30] MEDS: 0.9 % SODIUM CHLORIDE 10 ML SYRINGE IV SCH ×3 (05:25→20:33)
[2019-07-30 06:27] LABS: Hematocrit 43.5 % (34.1-44.9); Hemoglobin 13.6 g/dL (11.2-15.7); Mean Cell Volume 125.4 fL (80.0-100.0); Mean Corpuscular HGB Conc 31.3 g/dL (31.0-36.0); Mean Platelet Volume 12.3 fL (7.4-10.4); Platelet Count 104 K/mcL (140-440); RBC 3.47 M/mcL (3.59-5.38); WBC 7.3 K/mcL (4.50-11.00)
[2019-07-30 06:45] LABS: ALT/SGPT 7 U/l (0-40); AST/SGOT 26 U/l (0-37); Albumin 3.2 gm/dL (3.2-5.2); Albumin/Globulin Ratio 0.9 (1.0-2.3); Alkaline Phosphatase 75 U/L (39-117); Bilirubin,Direct 0.3 mg/dL (0.0-0.3); Bilirubin,Total 0.8 mg/dL (0.0-1.0); Blood Urea Nitrogen 19 mg/dl (8-23); Calcium 10.1 mg/dl (8.6-10.4); Carbon Dioxide 47 mmol/L (22-30); Chloride 85 mmol/L (96-108); Globulin 3.4 gm/dL (2.2-3.7); Glomerular Filtration Rate 97; Glucose 144 mg/dL (70-105); Lactate Dehydrogenase 269 U/L (94-250); Phosphorous 2.5 mg/dL (2.7-4.5); Triglycerides 115 mg/dl (<150); Uric Acid 4.7 mg/dL (2.5-8.0)
[2019-07-30] MEDS: BUDESONIDE 0.5 MG/2 ML AMPUL.NEB NEB SCH ×2 (07:16→19:00)
[2019-07-30] MEDS: MULTIVIT,THER IRON,CA,FA & MIN 1 TABLET PO SCH (07:33)
[2019-07-30] MEDS: DOCUSATE SODIUM 100 MG CAPSULE PO SCH ×2 (07:33→20:33)
[2019-07-30] MEDS: ASPIRIN 325 MG ENTERIC COATED TABLET PO SCH (07:33)
[2019-07-30 08:42] LABS: Anisocytosis 1+ (NONE SEEN); Lymphocytes % 2 % (15-49); Macrocytosis 3+ (NONE SEEN); Platelet Estimate DECREASED (NORMAL); RBC Morphology ABNORM (NORMAL); Segmented Neutrophils % 98 % (38-78)
[2019-07-30] MEDS: METOPROLOL TARTRATE 5 MG/5 ML VIAL IV PRN (09:51)
[2019-07-30] MEDS: cefTRIAXone 2 GM in DEXTROSE 5% IN WATER 50 ML IV SCH (09:54)
[2019-07-30] MEDS: methylPREDNISolone SOD SUCC 125 MG/2 ML VIAL IV SCH ×2 (09:54→20:32)
[2019-07-30] MEDS: HEPARIN 5,000 UNIT/ML VIAL SQ SCH ×2 (09:54→20:32)
[2019-07-30] MEDS: FUROSEMIDE 40 MG/4 ML VIAL IV SCH ×2 (09:54→18:03)
--- NOTE | 2019-07-30 10:09 | Internal Med Progress Note ---
Medical - PN: Subj Patient information: Note initiated : 07/30/19 at 10:05 am Service Date, if different from initiated Date: [] Patient: Elizabeth Robles 73 y/o F admitted on 07/29/19 for failure to thrive, weakness. Chief Complaint: [] Interval history: Ms. Robles is a 73 year old F morbidly obese with a history of COPD on home oxygen and multiple medical issues who presents to the ER with worsening weakness/failure to function. She also endorses to increasing cough along with increasing shortness of breath. She denies associated fever or chills or diarrhea. She lives at home but has noted a progressive decline in functional status. Notably patient has had multiple recent hospitalization with UTI/weak ness and deconditioning/COPD exacerbations and has been battling multiple comorbidities. She now presents to the ER with above symptoms. During initial work-up she was noted to be confused. ABG revealed a PCO2 of 125. She was promptly started on noninvasive mechanical ventilation. UA was consistent with pyuria. Chest imaging consistent with CHF. Patient started antibiotic coverage and [facility] hospitalist service was consulted. At the time evaluation patient is alert and able to answer most of the questions. She is currently on BiPAP. She denies chest pain, fever, but endorses to cough. 07/29-improved blood gas to 7.45/96. Chronic CO2 retainer attempting to wean BiPAP. More lucid alert and respond to commands. A. fib with bundle branch on telemetry. Respiratory panel negative. Repeat chest imaging 24 hours. Continue contact precautions. - Constitutional Vitals: Vital Signs Temp Pulse Resp BP Pulse Ox 96.7 F L 105 H 18 112/84 97 07/30/19 08:01 07/30/19 09:41 07/30/19 09:41 07/30/19 09:01 07/30/19 09:41 Period Temp Pulse Resp BP Sys/Robert Pulse Ox Last 24 Hr 96.7 F-98.7 F 55-110 13-27 73-141/53-125 84-100 Intake and Output 07/29/19 07/30/19 07/30/19 21:59 05:59 13:59 Output Total 1720 280 Balance -1720 -280 Weight 279 lb 12.8 oz Intake & Output: Intake & Output 07/29/19 07/30/19 07/30/19 21:59 05:59 13:59 Output Total 1720 280 Balance -1720 -280 Weight 279 lb 12.8 oz Output: Urine Catheter Amount 1720 280 Other: Urine Appearance Clear Clear Sediment Mucous Threads Straight Cloudy Sediment Urine Color Bright Yellow Light Mandy Straight Dark Yellow Urine Odor Normal Stool Size Large Stool Color Brown Stool Consistency Liquid Loose # of times incontinent of 1 Bowels General appearance: no acute distress Exam: Alert and respond to commands Nonlabored breathing Telemetry regular bundle branch Morbidly obese Medical - PN: Obj Da - Labs CBC & Chem 7: 07/30/19 05:30 07/30/19 05:30 Labs: Abnormal Lab Results 07/30/19 07/30/19 07/29/19 05:30 05:30 13:16 RBC 3.47 L MCV 125.4 H MCH 39.2 H MCHC RDW 16.0 H Plt Count 104 L MPV 12.3 H Seg Neutrophils % 98 H Lymphocytes % 2 L RBC Morphology Abnorm A Polychromasia Anisocytosis 1+ A Macrocytosis 3+ A Chloride 85 L Carbon Dioxide 47 H* Creatinine 0.5 L Glucose 144 H Phosphorus 2.5 L Lactate Dehydrogenase 269 H Troponin T 0.04 H* NT-Pro-B Natriuret Pep Albumin Albumin/Globulin Ratio 0.9 L Urine Nitrate Urine Urobilinogen Urine RBC Urine WBC Urine Bacteria Urine Mucus 07/29/19 07/29/19 07/29/19 11:00 09:55 09:50 RBC MCV MCH MCHC RDW Plt Count MPV Seg Neutrophils % Lymphocytes % RBC Morphology Polychromasia Anisocytosis Macrocytosis Chloride Carbon Dioxide Creatinine Glucose Phosphorus Lactate Dehydrogenase Troponin T 0.04 H* NT-Pro-B Natriuret Pep 1013.0 H Albumin Albumin/Globulin Ratio Urine Nitrate Pos A Urine Urobilinogen 8 A Urine RBC > 182 H Urine WBC > 182 H Urine Bacteria Many A Urine Mucus Many A 07/29/19 07/29/19 09:50 09:50 RBC 3.18 L MCV 131.1 H MCH 40.3 H MCHC 30.7 L RDW 16.0 H Plt Count 101 L MPV 11.6 H Seg Neutrophils % Lymphocytes % 12 L RBC Morphology Abnorm A Polychromasia Few A Anisocytosis 1+ A Macrocytosis 3+ A Chloride 91 L Carbon Dioxide 45 H* Creatinine 0.4 L Glucose 137 H Phosphorus Lactate Dehydrogenase Troponin T NT-Pro-B Natriuret Pep Albumin 3.1 L Albumin/Globulin Ratio Urine Nitrate Urine Urobilinogen Urine RBC Urine WBC Urine Bacteria Urine Mucus Meds: Medications Acetaminophen (Tylenol) 650 mg PO Q4-6HP PRN; Protocol PRN Reason: Per Pain Protocol/Fever > 101 Albuterol/Ipratropium (Duoneb) 3 ml NEB Q4HRT [facility] Last Admin: 07/30/19 07:16 Dose: 3 ml Documented by: Aspirin (Ecotrin) 325 mg PO DAILY [facility] Last Admin: 07/30/19 07:33 Dose: Not Given Documented by: Bisacodyl (Dulcolax) 10 mg NE Q2-3DAYS PRN PRN Reason: Constipation Budesonide (Pulmicort) 0.5 mg NEB Q12 [facility] Last Admin: 07/30/19 07:16 Dose: 0.5 mg Documented by: Docusate Sodium (Colace) 100 mg PO BID [facility] Last Admin: 07/30/19 07:33 Dose: Not Given Documented by: Furosemide (Lasix) 40 mg IV BIDD [facility] Last Admin: 07/30/19 09:54 Dose: 40 mg Documented by: Heparin Sodium (Porcine) (Heparin) 5,000 unit SQ Q12 [facility] Last Admin: 07/30/19 09:54 Dose: 5,000 unit Documented by: Hydralazine HCl (Apresoline) 10 mg IV Q4-6HP PRN PRN Reason: Hypertension Acetaminophen (Ofirmev) 650 mg in 65 mls @ 130 mls/hr IV Q6HP PRN; Protocol PRN Reason: Per Pain Protocol/Fever > 101 Magnesium Sulfate (Magnesium Sulfate) 2 gm in 50 mls @ 50 mls/hr IV UD PRN PRN Reason: MG = or < 1.7 Ceftriaxone Sodium 2 gm/ (Dextrose) 50 mls @ 100 mls/hr IV Q24H [facility]; Protocol Last Admin: 07/30/19 09:54 Dose: 100 mls/hr Documented by: Iron Carb/Multivit/[place]/Folic Acid (Multivitamin W/Minerals) 1 tab PO DAILY [facility] Last Admin: 07/30/19 07:33 Dose: Not Given Documented by: Melatonin (Melatonin 3mg Tablet) 3 mg PO HSP PRN PRN Reason: Insomnia Methylprednisolone Sodium Succinate (Solu-Medrol) 60 mg IV Q12 [facility] Last Admin: 07/30/19 09:54 Dose: 60 mg Documented by: Metoprolol Tartrate (Lopressor) 5 mg IV Q5M PRN PRN Reason: Heart Rate > 140 bpm Last Admin: 07/30/19 09:51 Dose: 5 mg Documented by: Ondansetron HCl (Zofran Odt) 4 mg SL Q4-6HP PRN; Protocol PRN Reason: Nausea And Vomiting Ondansetron HCl (Zofran) 4 mg IV Q4-6HP PRN; Protocol PRN Reason: Nausea And Vomiting Fluticasone Furoate [Arnuity Ellipta] 200 Mcg Inhaler 1 dose INH Q24H [facility] Last Admin: 07/29/19 20:53 Dose: Not Given Documented by: Polyethylene Glycol (Miralax) 17 gm PO DAILYP PRN PRN Reason: Constipation Potassium Chloride (Klor-Con) 40 meq PO DAILYP PRN PRN Reason: K+ < 3.5 Senna/Docusate Sodium (Senna Plus Tablet) 1 tab PO HS [facility] Last Admin: 07/29/19 21:42 Dose: Not Given Documented by: Sodium Chloride (Saline Flush) 10 ml IV Q8 [facility] Last Admin: 07/30/19 05:25 Dose: 10 ml Documented by: Medical - PN: A/P - Time Spent With Patient Total time spent is greater than 50% in coordination of care (as documented) at patient's floor/unit and/or counseling patient: Greater than 35 minutes (Critical care time) (1) Acute respiratory failure with hypoxia and hypercarbia Status: Acute Assessment and plan: * Acute respiratory failure with hypercapnia- blood gas 7.25/148 improved to 7.45/96. Underlying OHS/COPD. Wean noninvasive ventilation. Serial ABG/chest imaging * Acute decompensated heart failure noted on chest imaging-clinical improvement noted with ongoing diuresis, noninvasive ventilation, await echocardiogram. Net 1750 cc negative fluid balance * COPD exacerbation continue bronchodilators/steroids/noninvasive ventilation. * Complicated UTI-was recently treated with ciprofloxacin. Continue Rocephin for presumed quinolone resistance. De-escalate based on cultures and sensitivities. * Severe deconditioning secondary to morbid obesity and inability to take care of self-initiate PT OT eval/directed therapies * Hypothyroidism home dose thyroxine * Anxiety disorder continue venlafaxine * GERD on ranitidine * DVT prophylaxis on heparin plan * Wean noninvasive ventilation as tolerated * Continue bronchodilators/antibiotic coverage * Interval chest imaging * Optimize CHF treatment based on echo, continue diuresis * PT OT * Pre-existing medical condition management home medications * Discharge planning per case management Current Visit: Yes
[2019-07-30] MEDS ORDERED: acetaZOLAMIDE SOD 500 MG VIAL IV ONE (17:03)
[2019-07-30] MEDS: FLUTICASONE FUROATE 200 MCG INH SCH (20:32)
[2019-07-30] MEDS: SENNOSIDES/DOCUSATE SODIUM 1 TAB TABLET PO SCH (20:33)
[2019-07-31] MEDS: IPRATROPIUM/ALBUTEROL 3 ML AMPUL.NEB NEB SCH ×6 (02:50→22:35)
[2019-07-31] MEDS: 0.9 % SODIUM CHLORIDE 10 ML SYRINGE IV SCH ×3 (05:21→21:00)
[2019-07-31 06:08] LABS: Hematocrit 41.4 % (34.1-44.9); Hemoglobin 13.4 g/dL (11.2-15.7); Mean Cell Volume 119.3 fL (80.0-100.0); Mean Corpuscular HGB Conc 32.4 g/dL (31.0-36.0); Mean Platelet Volume 12.4 fL (7.4-10.4); Platelet Count 104 K/mcL (140-440); RBC 3.47 M/mcL (3.59-5.38); Red Cell Distribution Width 16.5 % (11.5-14.5); WBC 6.3 K/mcL (4.50-11.00)
[2019-07-31 06:25] LABS: ALT/SGPT 9 U/l (0-40); AST/SGOT 25 U/l (0-37); Albumin 3.3 gm/dL (3.2-5.2); Albumin/Globulin Ratio 1.1 (1.0-2.3); Alkaline Phosphatase 70 U/L (39-117); Bilirubin,Direct 0.3 mg/dL (0.0-0.3); Bilirubin,Total 0.7 mg/dL (0.0-1.0); Blood Urea Nitrogen 22 mg/dl (8-23); Calcium 10.1 mg/dl (8.6-10.4); Globulin 3.1 gm/dL (2.2-3.7); Glomerular Filtration Rate 91; Glucose 117 mg/dL (70-105); Lactate Dehydrogenase 244 U/L (94-250); Triglycerides 141 mg/dl (<150); Uric Acid 5.6 mg/dL (2.5-8.0)
[2019-07-31 06:46] LABS: Carbon Dioxide 45 mmol/L (22-30); Chloride 81 mmol/L (96-108); Phosphorous 2.1 mg/dL (2.7-4.5)
[2019-07-31 06:49] LABS: Anisocytosis 1+ (NONE SEEN); Lymphocytes % 8 % (15-49); Macrocytosis 2+ (NONE SEEN); Monocytes % (Manual) 3 % (1-12); Platelet Estimate DECREASED (NORMAL); RBC Morphology ABNORMAL (NORMAL); Reactive Lymphocytes 1 % (0-2); Segmented Neutrophils % 88 % (38-78); Stomatocytes 1+ (NONE SEEN)
[2019-07-31] MEDS: BUDESONIDE 0.5 MG/2 ML AMPUL.NEB NEB SCH ×2 (07:35→19:20)
[2019-07-31] MEDS: DOCUSATE SODIUM 100 MG CAPSULE PO SCH ×3 (07:38→21:02)
[2019-07-31] MEDS: METOPROLOL TARTRATE 5 MG/5 ML VIAL IV PRN (07:40)
[2019-07-31] MEDS: FUROSEMIDE 40 MG/4 ML VIAL IV SCH ×2 (07:41→15:41)
[2019-07-31] MEDS: cefTRIAXone 2 GM in DEXTROSE 5% IN WATER 50 ML IV SCH (09:00)
[2019-07-31] MEDS: methylPREDNISolone SOD SUCC 125 MG/2 ML VIAL IV SCH ×2 (10:21→21:00)
[2019-07-31] MEDS: HEPARIN 5,000 UNIT/ML VIAL SQ SCH ×2 (10:22→21:00)
[2019-07-31] MEDS: ASPIRIN 325 MG ENTERIC COATED TABLET PO SCH (10:22)
[2019-07-31] MEDS: MULTIVIT,THER IRON,CA,FA & MIN 1 TABLET PO SCH (10:22)
[2019-07-31] MEDS ORDERED: ACETAMINOPHEN 650 MG/65 ML BOTTLE IV PRN (11:31)
[2019-07-31] MEDS ORDERED: MAGNESIUM SULFATE 2 GM/50 ML BAG IV PRN (11:31)
[2019-07-31] MEDS ORDERED: ONDANSETRON 4 MG ODT TABLET SL PRN (11:31)
[2019-07-31] MEDS ORDERED: POLYETHYLENE GLYCOL 3350 17 GM PACKET PO PRN (11:31)
[2019-07-31] MEDS ORDERED: POTASSIUM CHLORIDE 20 MEQ PACKET PO PRN (11:31)
[2019-07-31] MEDS ORDERED: hydrALAZINE 20 MG/ML VIAL IV PRN (11:31)
[2019-07-31] MEDS ORDERED: METOPROLOL TARTRATE 5 MG/5 ML VIAL IV PRN (11:31)
[2019-07-31] MEDS ORDERED: BISACODYL 10 MG SUPP.RECT PR PRN (11:31)
[2019-07-31] MEDS ORDERED: ONDANSETRON 4 MG/2 ML VIAL IV PRN (11:31)
[2019-07-31] MEDS ORDERED: MELATONIN 3 MG TABLET PO PRN (11:31)
--- NOTE | 2019-07-31 14:28 | Internal Med Progress Note ---
Medical - PN: Subj Patient information: Note initiated : 07/31/19 at 2:24 pm Service Date, if different from initiated Date: [] Patient: Elizabeth Robles 73 y/o F admitted on 07/29/19 for failure to thrive, weakness. Chief Complaint: [] Interval history: Ms. Robles is a 73 year old F morbidly obese with a history of COPD on home oxygen and multiple medical issues who presents to the ER with worsening weakness/failure to function. She also endorses to increasing cough along with increasing shortness of breath. She denies associated fever or chills or diarrhea. She lives at home but has noted a progressive decline in functional status. Notably patient has had multiple recent hospitalization with UTI/weakn ess and deconditioning/COPD exacerbations and has been battling multiple comorbidities. She now presents to the ER with above symptoms. During initial work-up she was noted to be confused. ABG revealed a PCO2 of 125. She was promptly started on noninvasive mechanical ventilation. UA was consistent with pyuria. Chest imaging consistent with CHF. Patient started antibiotic coverage and [facility] hospital[facility] service was consulted. At the time evaluation patient is alert and able to answer most of the questions. She is currently on BiPAP. She denies chest pain, fever, but endorses to cough. 07/29-improved blood gas to 7.45/96. Chronic CO2 retainer attempting to wean BiPAP. More lucid alert and respond to commands. A. fib with bundle branch on telemetry. Respiratory panel negative. Repeat chest imaging 24 hours. Continue contact precautions. 07/30-patient doing well. Now off BiPAP. No overnight events. No concerns per staff. Lucid alert. Bicarb 45. Blood gas at baseline. Chronic CO2 retainer. Would benefit from home BiPAP. Anticipate SNF transfer in the next 24 to 48 hours. No fever chills. Transfer to medical floor. - Constitutional Vitals: Vital Signs Temp Pulse Resp BP Pulse Ox 98.0 F 96 H 20 96/66 97 07/31/19 12:30 07/31/19 11:31 07/31/19 12:30 07/31/19 12:30 07/31/19 12:30 Period Temp Pulse Resp BP Sys/Robert Pulse Ox Last 24 Hr 97.0 F-98.4 F 86-116 14-25 83-132/27-114 89-99 Intake and Output 07/31/19 07/31/19 07/31/19 05:59 13:59 21:59 Intake Total 480 410 Output Total 430 700 Balance 50 -290 Intake & Output: Intake & Output 07/31/19 07/31/19 07/31/19 05:59 13:59 21:59 Intake Total 480 410 Output Total 430 700 Balance 50 -290 Intake: IV 50 Rocephin 2 gm In Dextrose 5% in 50 Water 50 ml @ 100 mls/hr IV Q24H [facility] Rx#:[id number] Oral 480 360 Output: Urine Catheter Amount 430 700 Other: Urine Appearance Clear Clear Straight Clear Urine Color Light Mandy Light Mandy Straight Light Mandy Urine Odor Normal Straight Normal General appearance: no acute distress Exam: Doing well Nonlabored breathing No anxiety Morbidly obese Medical - PN: Obj Da - Labs CBC & Chem 7: 07/31/19 04:14 07/31/19 04:14 Labs: Abnormal Lab Results 07/31/19 07/31/19 07/30/19 04:14 04:14 05:30 RBC 3.47 L MCV 119.3 H MCH 38.6 H MCHC RDW 16.5 H Plt Count 104 L MPV 12.4 H Seg Neutrophils % 88 H Lymphocytes % 8 L RBC Morphology Polychromasia Anisocytosis 1+ A Macrocytosis 2+ A Stomatocytes 1+ A Chloride 81 L 85 L Carbon Dioxide 45 H* 47 H* Creatinine 0.5 L Glucose 117 H 144 H Phosphorus 2.1 L 2.5 L Lactate Dehydrogenase 269 H Troponin T NT-Pro-B Natriuret Pep Albumin Albumin/Globulin Ratio 0.9 L Urine Nitrate Urine Urobilinogen Urine RBC Urine WBC Urine Bacteria Urine Mucus 07/30/19 07/29/19 07/29/19 05:30 13:16 11:00 RBC 3.47 L MCV 125.4 H MCH 39.2 H MCHC RDW 16.0 H Plt Count 104 L MPV 12.3 H Seg Neutrophils % 98 H Lymphocytes % 2 L RBC Morphology Abnorm A Polychromasia Anisocytosis 1+ A Macrocytosis 3+ A Stomatocytes Chloride Carbon Dioxide Creatinine Glucose Phosphorus Lactate Dehydrogenase Troponin T 0.04 H* NT-Pro-B Natriuret Pep Albumin Albumin/Globulin Ratio Urine Nitrate Pos A Urine Urobilinogen 8 A Urine RBC > 182 H Urine WBC > 182 H Urine Bacteria Many A Urine Mucus Many A 07/29/19 07/29/19 07/29/19 09:55 09:50 09:50 RBC MCV MCH MCHC RDW Plt Count MPV Seg Neutrophils % Lymphocytes % RBC Morphology Polychromasia Anisocytosis Macrocytosis Stomatocytes Chloride 91 L Carbon Dioxide 45 H* Creatinine 0.4 L Glucose 137 H Phosphorus Lactate Dehydrogenase Troponin T 0.04 H* NT-Pro-B Natriuret Pep 1013.0 H Albumin 3.1 L Albumin/Globulin Ratio Urine Nitrate Urine Urobilinogen Urine RBC Urine WBC Urine Bacteria Urine Mucus 07/29/19 09:50 RBC 3.18 L MCV 131.1 H MCH 40.3 H MCHC 30.7 L RDW 16.0 H Plt Count 101 L MPV 11.6 H Seg Neutrophils % Lymphocytes % 12 L RBC Morphology Abnorm A Polychromasia Few A Anisocytosis 1+ A Macrocytosis 3+ A Stomatocytes Chloride Carbon Dioxide Creatinine Glucose Phosphorus Lactate Dehydrogenase Troponin T NT-Pro-B Natriuret Pep Albumin Albumin/Globulin Ratio Urine Nitrate Urine Urobilinogen Urine RBC Urine WBC Urine Bacteria Urine Mucus Meds: Medications Acetaminophen (Tylenol) 650 mg PO Q4-6HP PRN; Protocol PRN Reason: Per Pain Protocol/Fever > 101 Albuterol/Ipratropium (Duoneb) 3 ml NEB Q4HRT [facility] Aspirin (Ecotrin) 325 mg PO DAILY [facility] Bisacodyl (Dulcolax) 10 mg [place] Q2-3DAYS PRN PRN Reason: Constipation Budesonide (Pulmicort) 0.5 mg NEB Q12 [facility] Docusate Sodium (Colace) 100 mg PO BID [facility] Furosemide (Lasix) 40 mg IV BIDD [facility] Heparin Sodium (Porcine) (Heparin) 5,000 unit SQ Q12 [facility] Hydralazine HCl (Apresoline) 10 mg IV Q4-6HP PRN PRN Reason: Hypertension Ceftriaxone Sodium 2 gm/ (Dextrose) 50 mls @ 100 mls/hr IV Q24H [facility]; Protocol Magnesium Sulfate (Magnesium Sulfate) 2 gm in 50 mls @ 50 mls/hr IV UD PRN PRN Reason: MG = or < 1.7 Acetaminophen (Ofirmev) 650 mg in 65 mls @ 130 mls/hr IV Q6HP PRN; Protocol PRN Reason: Per Pain Protocol/Fever > 101 Iron Carb/Multivit/[place]/Folic Acid (Multivitamin W/Minerals) 1 tab PO DAILY [facility] Melatonin (Melatonin 3mg Tablet) 3 mg PO HSP PRN PRN Reason: Insomnia Methylprednisolone Sodium Succinate (Solu-Medrol) 60 mg IV Q12 [facility] Metoprolol Tartrate (Lopressor) 5 mg IV Q5M PRN PRN Reason: Heart Rate > 140 bpm Ondansetron HCl (Zofran Odt) 4 mg SL Q4-6HP PRN; Protocol PRN Reason: Nausea And Vomiting Ondansetron HCl (Zofran) 4 mg IV Q4-6HP PRN; Protocol PRN Reason: Nausea And Vomiting Fluticasone Furoate [Arnuity Ellipta] 200 Mcg Inh 1 dose INH Q24H [facility] Polyethylene Glycol (Miralax) 17 gm PO DAILYP PRN PRN Reason: Constipation Potassium Chloride (Klor-Con) 40 meq PO DAILYP PRN PRN Reason: K+ < 3.5 Senna/Docusate Sodium (Senna Plus Tablet) 1 tab PO HS [facility] Sodium Chloride (Saline Flush) 10 ml IV Q8 [facility] Last Admin: 07/31/19 12:57 Dose: 10 ml Documented by: Medical - PN: A/P - Time Spent With Patient Total time spent is greater than 50% in coordination of care (as documented) at patient's floor/unit and/or counseling patient: 25 - 35 minutes (1) Acute respiratory failure with hypoxia and hypercarbia Status: Acute Assessment and plan: * Acute respiratory failure with hypercapnia-clinically back at baseline. Blood gas normalized. Off BiPAP. Will recommend outpatient follow-up with pulmonology for outpatient sleep apnea evaluation. * Acute decompensated heart failure noted on chest imaging-clinical improvement noted with continued diuresis. Echocardiogram 60% EF * COPD exacerbation clinical improvement noted on bronchodilators/steroids/noninvasive ventilation. * Complicated UTI-was recently treated with ciprofloxacin. Continue Rocephin for presumed quinolone resistance. De-escalate based on cultures and sensitivities. * Severe deconditioning secondary to morbid obesity and inability to take care of self-initiate PT OT eval/directed therapies * Hypothyroidism home dose thyroxine * Anxiety disorder continue venlafaxine * GERD on ranitidine * DVT prophylaxis on heparin plan * Transfer to medical floor * Continue bronchodilators/antibiotic coverage * Continue diuresis/ PT OT * Pre-existing medical condition management home medications * Discharge planning likely SNF in 24 hours Current Visit: Yes
[2019-07-31] MEDS: SENNOSIDES/DOCUSATE SODIUM 1 TAB TABLET PO SCH ×2 (21:00→21:03)
[2019-07-31] MEDS: FLUTICASONE FUROATE 200 MCG INH SCH (21:00)
[2019-08-01] MEDS: IPRATROPIUM/ALBUTEROL 3 ML AMPUL.NEB NEB SCH ×6 (02:57→23:08)
[2019-08-01] MEDS: 0.9 % SODIUM CHLORIDE 10 ML SYRINGE IV SCH ×3 (06:39→20:58)
[2019-08-01 06:46] LABS: Hemoglobin 12.2 g/dL (11.2-15.7); Mean Cell Volume 119.4 fL (80.0-100.0); Mean Platelet Volume 12.8 fL (7.4-10.4); Platelet Count 109 K/mcL (140-440); Red Cell Distribution Width 16.6 % (11.5-14.5); WBC 8.7 K/mcL (4.50-11.00)
[2019-08-01 07:37] LABS: ALT/SGPT 9 U/l (0-40); AST/SGOT 27 U/l (0-37); Albumin 3.1 gm/dL (3.2-5.2); Albumin/Globulin Ratio 1.1 (1.0-2.3); Alkaline Phosphatase 63 U/L (39-117); Bilirubin,Total 0.5 mg/dL (0.0-1.0); Globulin 2.8 gm/dL (2.2-3.7); Glomerular Filtration Rate 91; Glucose 126 mg/dL (70-105); Lactate Dehydrogenase 222 U/L (94-250); Triglycerides 142 mg/dl (<150); Uric Acid 6.3 mg/dL (2.5-8.0)
[2019-08-01] MEDS: BUDESONIDE 0.5 MG/2 ML AMPUL.NEB NEB SCH ×2 (07:41→23:09)
[2019-08-01 07:50] LABS: Bilirubin,Direct < 0.2 mg/dL (0.0-0.3); Blood Urea Nitrogen 29 mg/dl (8-23); Carbon Dioxide 48 mmol/L (22-30); Chloride 84 mmol/L (96-108)
[2019-08-01 08:25] LABS: Anisocytosis 2+ (NONE SEEN); Lymphocytes % 4 % (15-49); Macrocytosis 3+ (NONE SEEN); Monocytes % (Manual) 1 % (1-12); Nucleated Red Blood Cells 1 % (0-0); Platelet Estimate DECREASED (NORMAL); RBC Morphology ABNORM (NORMAL); Segmented Neutrophils % 95 % (38-78)
[2019-08-01] MEDS ORDERED: acetaZOLAMIDE SOD 500 MG VIAL IV ONE (08:43)
[2019-08-01] MEDS: FUROSEMIDE 40 MG/4 ML VIAL IV SCH (12:15)
[2019-08-01] MEDS: ASPIRIN 325 MG ENTERIC COATED TABLET PO SCH (12:17)
[2019-08-01] MEDS: MULTIVIT,THER IRON,CA,FA & MIN 1 TABLET PO SCH (12:17)
[2019-08-01] MEDS: HEPARIN 5,000 UNIT/ML VIAL SQ SCH ×2 (12:17→20:57)
[2019-08-01] MEDS: methylPREDNISolone SOD SUCC 125 MG/2 ML VIAL IV SCH ×2 (12:18→20:56)
[2019-08-01] MEDS: DOCUSATE SODIUM 100 MG CAPSULE PO SCH ×2 (12:18→20:49)
[2019-08-01] MEDS: cefTRIAXone 2 GM in DEXTROSE 5% IN WATER 50 ML IV SCH (12:27)
--- NOTE | 2019-08-01 15:16 | Internal Med Progress Note ---
Medical - PN: Subj Patient information: Note initiated : 08/01/19 at 3:13 pm Service Date, if different from initiated Date: [] Patient: Elizabeth Robles 73 y/o F admitted on 07/29/19 for failure to thrive, weakness. Chief Complaint: [] Interval history: Ms. Robles is a 73 year old F morbidly obese with a history of COPD on home oxygen and multiple medical issues who presents to the ER with worsening weakness/failure to function. She also endorses to increasing cough along with increasing shortness of breath. She denies associated fever or chills or diarrhea. She lives at home but has noted a progressive decline in functional status. Notably patient has had multiple recent hospitalization with UTI/weakn ess and deconditioning/COPD exacerbations and has been battling multiple comorbidities. She now presents to the ER with above symptoms. During initial work-up she was noted to be confused. ABG revealed a PCO2 of 125. She was promptly started on noninvasive mechanical ventilation. UA was consistent with pyuria. Chest imaging consistent with CHF. Patient started antibiotic coverage and [facility] hospitalist service was consulted. At the time evaluation patient is alert and able to answer most of the questions. She is currently on BiPAP. She denies chest pain, fever, but endorses to cough. 07/29-improved blood gas to 7.45/96. Chronic CO2 retainer attempting to wean BiPAP. More lucid alert and respond to commands. A. fib with bundle branch on telemetry. Respiratory panel negative. Repeat chest imaging 24 hours. Continue contact precautions. 07/30-patient doing well. Now off BiPAP. No overnight events. No concerns per staff. Lucid alert. Bicarb 45. Blood gas at baseline. Chronic CO2 retainer. Would benefit from home BiPAP. Anticipate SNF transfer in the next 24 to 48 hours. No fever chills. Transfer to medical floor. 07/31 -patient very drowsy lethargic and confused. ABG 7.55/60 . No overnight events. No additional concerns per nursing staff. Anticipate SNF transfer in the next 24 hours. Continue Diamox for contraction alkalosis. DC IV Lasix. Net 4000 cc negative fluid balance. - Constitutional Vitals: Vital Signs Temp Pulse Resp BP Pulse Ox 97.7 F 99 H 16 92/61 94 08/01/19 12:00 08/01/19 12:00 08/01/19 12:00 08/01/19 12:00 08/01/19 12:00 Period Temp Pulse Resp BP Sys/Robert Pulse Ox Last 24 Hr 97.0 F-97.8 F 73-104 14-22 89-107/58-71 93-97 Intake and Output 08/01/19 08/01/19 08/01/19 05:59 13:59 21:59 Intake Total 370 Output Total 550 Balance -180 Intake & Output: Intake & Output 08/01/19 08/01/19 08/01/19 05:59 13:59 21:59 Intake Total 370 Output Total 550 Balance -180 Intake: Nourishment/Supplement quantity 120 (ml) Oral 250 Output: Urine Catheter Amount 550 Other: Meal Nourishment/Supplement Nourishment/Supplement name Ensure Enlive Urine Appearance Cloudy Urine Color Light Mandy Stool Size Smear Stool Color Brown Stool Consistency Liquid Loose # of times incontinent of 2 Bowels General appearance: morbidly obese Exam: Fatigue lethargic Oral cavity dry S1-S2 irregular regular rhythm Diminished sounds bases Medical - PN: Obj Da - Labs CBC & Chem 7: 08/01/19 05:05 08/01/19 05:05 Labs: Abnormal Lab Results 08/01/19 08/01/19 07/31/19 05:05 05:05 04:14 RBC 3.10 L MCV 119.4 H MCH 39.4 H RDW 16.6 H Plt Count 109 L MPV 12.8 H Seg Neutrophils % 95 H Lymphocytes % 4 L Nucleated RBCs 1 H RBC Morphology Abnorm A Anisocytosis 2+ A Macrocytosis 3+ A Stomatocytes Potassium 3.1 L Chloride 84 L 81 L Carbon Dioxide 48 H* 45 H* BUN 29 H Creatinine Glucose 126 H 117 H Phosphorus 2.1 L Lactate Dehydrogenase Albumin/Globulin Ratio Albumin 3.1 L 07/31/19 07/30/19 07/30/19 04:14 05:30 05:30 RBC 3.47 L 3.47 L MCV 119.3 H 125.4 H MCH 38.6 H 39.2 H RDW 16.5 H 16.0 H Plt Count 104 L 104 L MPV 12.4 H 12.3 H Seg Neutrophils % 88 H 98 H Lymphocytes % 8 L 2 L Nucleated RBCs RBC Morphology Abnorm A Anisocytosis 1+ A 1+ A Macrocytosis 2+ A 3+ A Stomatocytes 1+ A Potassium Chloride 85 L Carbon Dioxide 47 H* BUN Creatinine 0.5 L Glucose 144 H Phosphorus 2.5 L Lactate Dehydrogenase 269 H Albumin/Globulin Ratio 0.9 L Albumin Meds: Medications Acetaminophen (Tylenol) 650 mg PO Q4-6HP PRN; Protocol PRN Reason: Per Pain Protocol/Fever > 101 Albuterol/Ipratropium (Duoneb) 3 ml NEB Q4HRT [facility] Last Admin: 08/01/19 11:23 Dose: 3 ml Documented by: Aspirin (Ecotrin) 325 mg PO DAILY [facility] Last Admin: 08/01/19 12:17 Dose: 325 mg Documented by: Bisacodyl (Dulcolax) 10 mg MI Q2-3DAYS PRN PRN Reason: Constipation Budesonide (Pulmicort) 0.5 mg NEB Q12 [facility] Last Admin: 08/01/19 07:41 Dose: 0.5 mg Documented by: Docusate Sodium (Colace) 100 mg PO BID [facility] Last Admin: 08/01/19 12:18 Dose: Not Given Documented by: Furosemide (Lasix) 40 mg IV BIDD [facility] Last Admin: 08/01/19 12:15 Dose: 40 mg Documented by: Heparin Sodium (Porcine) (Heparin) 5,000 unit SQ Q12 [facility] Last Admin: 08/01/19 12:17 Dose: 5,000 unit Documented by: Hydralazine HCl (Apresoline) 10 mg IV Q4-6HP PRN PRN Reason: Hypertension Ceftriaxone Sodium 2 gm/ (Dextrose) 50 mls @ 100 mls/hr IV Q24H [facility]; Protocol Last Admin: 08/01/19 12:27 Dose: 100 mls/hr Documented by: Magnesium Sulfate (Magnesium Sulfate) 2 gm in 50 mls @ 50 mls/hr IV UD PRN PRN Reason: MG = or < 1.7 Acetaminophen (Ofirmev) 650 mg in 65 mls @ 130 mls/hr IV Q6HP PRN; Protocol PRN Reason: Per Pain Protocol/Fever > 101 Iron Carb/Multivit/[place]/Folic Acid (Multivitamin W/Minerals) 1 tab PO DAILY [facility] Last Admin: 08/01/19 12:17 Dose: 1 tab Documented by: Melatonin (Melatonin 3mg Tablet) 3 mg PO HSP PRN PRN Reason: Insomnia Methylprednisolone Sodium Succinate (Solu-Medrol) 60 mg IV Q12 [facility] Last Admin: 08/01/19 12:18 Dose: 60 mg Documented by: Metoprolol Tartrate (Lopressor) 5 mg IV Q5M PRN PRN Reason: Heart Rate > 140 bpm Ondansetron HCl (Zofran Odt) 4 mg SL Q4-6HP PRN; Protocol PRN Reason: Nausea And Vomiting Ondansetron HCl (Zofran) 4 mg IV Q4-6HP PRN; Protocol PRN Reason: Nausea And Vomiting Fluticasone Furoate [Arnuity Ellipta] 200 Mcg Inh 1 dose INH Q24H [facility] Last Admin: 07/31/19 21:00 Dose: Not Given Documented by: Polyethylene Glycol (Miralax) 17 gm PO DAILYP PRN PRN Reason: Constipation Potassium Chloride (Klor-Con) 40 meq PO DAILYP PRN PRN Reason: K+ < 3.5 Potassium Chloride (Potassium Chloride) 40 meq PO BIDCC [facility] Stop: 08/02/19 08:01 Senna/Docusate Sodium (Senna Plus Tablet) 1 tab PO HS [facility] Last Admin: 07/31/19 21:00 Dose: Not Given Documented by: Sodium Chloride (Saline Flush) 10 ml IV Q8 [facility] Last Admin: 08/01/19 14:21 Dose: 10 ml Documented by: Medical - PN: A/P - Time Spent With Patient Total time spent is greater than 50% in coordination of care (as documented) at patient's floor/unit and/or counseling patient: 25 - 35 minutes (1) Acute respiratory failure with hypoxia and hypercarbia Status: Acute Assessment and plan: * Acute respiratory failure with hypercapnia-clinically back at baseline. Blood gas normalized. Off BiPAP. Will recommend outpatient follow-up with pulmonology for outpatient sleep apnea evaluation. * Acute decompensated heart failure noted on chest imaging-clinical improvement noted with continued diuresis. Echocardiogram 60% EF * COPD exacerbation clinical improvement noted on bronchodilators/steroids/noninvasive ventilation. * Complicated UTI-was recently treated with ciprofloxacin. Continue Rocephin for presumed quinolone resistance. De-escalate based on cultures and sensitivities. * Severe deconditioning secondary to morbid obesity and inability to take care of self-initiate PT OT eval/directed therapies * Hypothyroidism home dose thyroxine * Anxiety disorder continue venlafaxine * GERD on ranitidine * DVT prophylaxis on heparin plan * DC diuretics * PT OT nutrition support * Continue bronchodilators/antibiotic coverage * Pre-existing medical condition management home medications * SNF transfer in a.m. Current Visit: Yes
[2019-08-01] MEDS: POTASSIUM CHLORIDE 20 MEQ/15 ML ML PO SCH (17:36)
[2019-08-01] MEDS: ACETAMINOPHEN 325 MG TABLET PO PRN (19:37)
[2019-08-01] MEDS: SENNOSIDES/DOCUSATE SODIUM 1 TAB TABLET PO SCH (20:49)
[2019-08-01] MEDS: FLUTICASONE FUROATE 200 MCG INH SCH (20:50)
[2019-08-02] MEDS: IPRATROPIUM/ALBUTEROL 3 ML AMPUL.NEB NEB SCH ×6 (04:45→23:29)
[2019-08-02] MEDS: 0.9 % SODIUM CHLORIDE 10 ML SYRINGE IV SCH ×4 (05:33→21:48)
[2019-08-02] MEDS: BUDESONIDE 0.5 MG/2 ML AMPUL.NEB NEB SCH ×2 (07:08→19:46)
[2019-08-02 07:11] LABS: Hematocrit 37.2 % (34.1-44.9); Hemoglobin 12.4 g/dL (11.2-15.7); Mean Cell Volume 118.5 fL (80.0-100.0); Mean Corpuscular HGB Conc 33.3 g/dL (31.0-36.0); Platelet Count 103 K/mcL (140-440); RBC 3.14 M/mcL (3.59-5.38); Red Cell Distribution Width 16.3 % (11.5-14.5); WBC 9.4 K/mcL (4.50-11.00)
[2019-08-02 07:53] LABS: ALT/SGPT 12 U/l (0-40); AST/SGOT 25 U/l (0-37); Albumin 3.3 gm/dL (3.2-5.2); Albumin/Globulin Ratio 1.2 (1.0-2.3); Alkaline Phosphatase 62 U/L (39-117); Bilirubin,Direct < 0.2 mg/dL (0.0-0.3); Bilirubin,Total 0.5 mg/dL (0.0-1.0); Blood Urea Nitrogen 34 mg/dl (8-23); Calcium 9.8 mg/dl (8.6-10.4); Carbon Dioxide 44 mmol/L (22-30); Chloride 82 mmol/L (96-108); Globulin 2.7 gm/dL (2.2-3.7); Glomerular Filtration Rate 87; Glucose 151 mg/dL (70-105); Lactate Dehydrogenase 262 U/L (94-250); Phosphorous 3.4 mg/dL (2.7-4.5); Triglycerides 143 mg/dl (<150); Uric Acid 6.2 mg/dL (2.5-8.0)
[2019-08-02] MEDS: cefTRIAXone 2 GM in DEXTROSE 5% IN WATER 50 ML IV SCH (08:12)
[2019-08-02] MEDS: methylPREDNISolone SOD SUCC 125 MG/2 ML VIAL IV SCH ×2 (08:13→19:48)
[2019-08-02] MEDS: HEPARIN 5,000 UNIT/ML VIAL SQ SCH ×2 (08:13→19:48)
[2019-08-02] MEDS: POTASSIUM CHLORIDE 20 MEQ/15 ML ML PO SCH (08:13)
[2019-08-02] MEDS: DOCUSATE SODIUM 100 MG CAPSULE PO SCH ×2 (08:14→19:44)
[2019-08-02] MEDS: ASPIRIN 325 MG ENTERIC COATED TABLET PO SCH (08:14)
[2019-08-02] MEDS: MULTIVIT,THER IRON,CA,FA & MIN 1 TABLET PO SCH (08:14)
[2019-08-02 08:57] LABS: Anisocytosis 1+ (NONE SEEN); Lymphocytes % 3 % (15-49); Macrocytosis 2+ (NONE SEEN); Monocytes % (Manual) 4 % (1-12); Platelet Estimate DECREASED (NORMAL); RBC Morphology ABNORM (NORMAL); Segmented Neutrophils % 93 % (38-78)
[2019-08-02] MEDS: SENNOSIDES/DOCUSATE SODIUM 1 TAB TABLET PO SCH (19:44)
[2019-08-02] MEDS: FLUTICASONE FUROATE 200 MCG INH SCH (19:45)
[2019-08-02] MEDS: ACETAMINOPHEN 325 MG TABLET PO PRN (19:54)
--- NOTE | 2019-08-02 22:19 | Internal Med Progress Note ---
Medical - PN: Subj Patient information: Note initiated : 08/02/19 at 10:16 pm Service Date, if different from initiated Date: [] Patient: Elizabeth Robles a 73 y/o F admitted on 07/29/19 for failure to thrive, weakness. Chief Complaint: [] Interval history: Ms. Robles is a 73 year old F morbidly obese with a history of COPD on home oxygen and multiple medical issues who presents to the ER with worsening weakness/failure to function. She also endorses to increasing cough along with increasing shortness of breath. She denies associated fever or chills or diarrhea. She lives at home but has noted a progressive decline in functional status. Notably patient has had multiple recent hospitalization with UTI/weak ness and deconditioning/COPD exacerbations and has been battling multiple comorbidities. She now presents to the ER with above symptoms. During initial work-up she was noted to be confused. ABG revealed a PCO2 of 125. She was promptly started on noninvasive mechanical ventilation. UA was consistent with pyuria. Chest imaging consistent with CHF. Patient started antibiotic coverage and [facility] hospitalist service was consulted. At the time evaluation patient is alert and able to answer most of the questions. She is currently on BiPAP. She denies chest pain, fever, but endorses to cough. 07/29-improved blood gas to 7.45/96. Chronic CO2 retainer attempting to wean BiPAP. More lucid alert and respond to commands. A. fib with bundle branch on telemetry. Respiratory panel negative. Repeat chest imaging 24 hours. Continue contact precautions. 07/30-patient doing well. Now off BiPAP. No overnight events. No concerns per staff. Lucid alert. Bicarb 45. Blood gas at baseline. Chronic CO2 retainer. Would benefit from home BiPAP. Anticipate SNF transfer in the next 24 to 48 hours. No fever chills. Transfer to medical floor. 07/31 -patient very drowsy lethargic and confused. ABG 7.55/60 . No overnight events. No additional concerns per nursing staff. Anticipate SNF transfer in the next 24 hours. Continue Diamox for contraction alkalosis. DC IV Lasix. Net 4000 cc negative fluid balance. 08/01-patient doing well. No overnight events. No concerns per staff. No fever chills. Much improved mental status. Likely discharge to nursing home home in 24 hours. Ongoing PT OT. Tolerating diet. - Constitutional Vitals: Vital Signs Temp Pulse Resp BP Pulse Ox 98.3 F 107 H 18 104/72 91 08/02/19 16:00 08/02/19 19:43 08/02/19 19:43 08/02/19 16:00 08/02/19 19:43 Period Temp Pulse Resp BP Sys/Robert Pulse Ox Last 24 Hr 97.1 F-98.3 F 82-107 15-24 92-104/62-73 91-99 Intake and Output 08/02/19 08/02/19 08/03/19 13:59 21:59 05:59 Intake Total 50 540 Output Total 100 Balance 50 440 Weight 273 lb Patient Weight 08/03/19 05:59 Weight 273 lb Intake & Output: Intake & Output 08/02/19 08/02/19 08/03/19 13:59 21:59 05:59 Intake Total 50 540 Output Total 100 Balance 50 440 Weight 273 lb Intake: IV 50 Rocephin 2 gm In Dextrose 5% in 50 Water 50 ml @ 100 mls/hr IV Q24H [facility] Rx#:[id number] Oral 540 Output: Void Amount 100 Other: Meal Breakfast Breakfast Percent of Meal Consumed 100% 100% Feeding Ability Independent Assist with Tray Set Up Urine Appearance Clear Clear Uretheral ([place]) Clear Urine Color Light Mandy Straw Straight Dark Mandy Uretheral ([place]) Light Mandy Dark Yellow Urine Odor Normal Normal Uretheral ([place]) Strong Normal Stool Size Copious Stool Color Brown Stool Consistency Liquid Loose # of times incontinent of 1 Bowels General appearance: morbidly obese, no acute distress Exam: Alert oriented Nonlabored breathing No anxiety Morbidly obese Medical - PN: Obj Da - Labs CBC & Chem 7: 08/02/19 05:00 08/02/19 05:00 Labs: Abnormal Lab Results 08/02/19 08/02/19 08/01/19 05:00 05:00 05:05 RBC 3.14 L MCV 118.5 H MCH 39.5 H RDW 16.3 H Plt Count 103 L MPV 13.0 H Seg Neutrophils % 93 H Lymphocytes % 3 L Nucleated RBCs RBC Morphology Abnorm A Anisocytosis 1+ A Macrocytosis 2+ A Stomatocytes Potassium 3.2 L 3.1 L Chloride 82 L 84 L Carbon Dioxide 44 H* 48 H* BUN 34 H 29 H Glucose 151 H 126 H Phosphorus Lactate Dehydrogenase 262 H Albumin 3.1 L 08/01/19 07/31/19 07/31/19 05:05 04:14 04:14 RBC 3.10 L 3.47 L MCV 119.4 H 119.3 H MCH 39.4 H 38.6 H RDW 16.6 H 16.5 H Plt Count 109 L 104 L MPV 12.8 H 12.4 H Seg Neutrophils % 95 H 88 H Lymphocytes % 4 L 8 L Nucleated RBCs 1 H RBC Morphology Abnorm A Anisocytosis 2+ A 1+ A Macrocytosis 3+ A 2+ A Stomatocytes 1+ A Potassium Chloride 81 L Carbon Dioxide 45 H* BUN Glucose 117 H Phosphorus 2.1 L Lactate Dehydrogenase Albumin Meds: Medications Acetaminophen (Tylenol) 650 mg PO Q4-6HP PRN; Protocol PRN Reason: Per Pain Protocol/Fever > 101 Last Admin: 08/02/19 19:54 Dose: 650 mg Documented by: Albuterol/Ipratropium (Duoneb) 3 ml NEB Q4HRT [facility] Last Admin: 08/02/19 19:41 Dose: 3 ml Documented by: Aspirin (Ecotrin) 325 mg PO DAILY [facility] Last Admin: 08/02/19 08:14 Dose: 325 mg Documented by: Bisacodyl (Dulcolax) 10 mg DC Q2-3DAYS PRN PRN Reason: Constipation Budesonide (Pulmicort) 0.5 mg NEB Q12 [facility] Last Admin: 08/02/19 19:46 Dose: 0.5 mg Documented by: Docusate Sodium (Colace) 100 mg PO BID [facility] Last Admin: 08/02/19 19:44 Dose: Not Given Documented by: Heparin Sodium (Porcine) (Heparin) 5,000 unit SQ Q12 [facility] Last Admin: 08/02/19 19:48 Dose: 5,000 unit Documented by: Hydralazine HCl (Apresoline) 10 mg IV Q4-6HP PRN PRN Reason: Hypertension Ceftriaxone Sodium 2 gm/ (Dextrose) 50 mls @ 100 mls/hr IV Q24H [facility]; Protocol Last Infusion: 08/02/19 08:54 Dose: Infused Documented by: Magnesium Sulfate (Magnesium Sulfate) 2 gm in 50 mls @ 50 mls/hr IV UD PRN PRN Reason: MG = or < 1.7 Acetaminophen (Ofirmev) 650 mg in 65 mls @ 130 mls/hr IV Q6HP PRN; Protocol PRN Reason: Per Pain Protocol/Fever > 101 Iron Carb/Multivit/Swine Nutritionist/Folic Acid (Multivitamin W/Minerals) 1 tab PO DAILY [facility] Last Admin: 08/02/19 08:14 Dose: 1 tab Documented by: Melatonin (Melatonin 3mg Tablet) 3 mg PO HSP PRN PRN Reason: Insomnia Last Admin: 08/01/19 20:58 Dose: 3 mg Documented by: Methylprednisolone Sodium Succinate (Solu-Medrol) 60 mg IV Q12 [facility] Last Admin: 08/02/19 19:48 Dose: 60 mg Documented by: Metoprolol Tartrate (Lopressor) 5 mg IV Q5M PRN PRN Reason: Heart Rate > 140 bpm Ondansetron HCl (Zofran Odt) 4 mg SL Q4-6HP PRN; Protocol PRN Reason: Nausea And Vomiting Ondansetron HCl (Zofran) 4 mg IV Q4-6HP PRN; Protocol PRN Reason: Nausea And Vomiting Fluticasone Furoate [Arnuity Ellipta] 200 Mcg Inh 1 dose INH Q24H [facility] Last Admin: 08/02/19 19:45 Dose: Not Given Documented by: Polyethylene Glycol (Miralax) 17 gm PO DAILYP PRN PRN Reason: Constipation Potassium Chloride (Klor-Con) 40 meq PO DAILYP PRN PRN Reason: K+ < 3.5 Senna/Docusate Sodium (Senna Plus Tablet) 1 tab PO HS [facility] Last Admin: 08/02/19 19:44 Dose: Not Given Documented by: Sodium Chloride (Saline Flush) 10 ml IV Q8 [facility] Last Admin: 08/02/19 21:48 Dose: Not Given Documented by: Medical - PN: A/P - Time Spent With Patient Total time spent is greater than 50% in coordination of care (as documented) at patient's floor/unit and/or counseling patient: 25 - 35 minutes (1) Acute respiratory failure with hypoxia and hypercarbia Status: Acute Assessment and plan: * Acute respiratory failure with hypercapnia-clinical resolution noted. Blood gas normalized. Off BiPAP. Will recommend outpatient follow-up with pulmonology for PELON evaluation and home BiPAP * Diastolic heart failure clinically resolved-Off diuretics. Echocardiogram 60% EF * COPD exacerbation clinical improvement noted on bronchodilators/steroids/noninvasive ventilation. * Complicated UTI-was recently treated with ciprofloxacin. Continue Rocephin for presumed quinolone resistance. Discontinue 24 hours * Severe deconditioning secondary to morbid obesity and inability to take care of self-initiate PT OT eval/directed therapies * Hypothyroidism home dose thyroxine * Anxiety disorder continue venlafaxine * GERD on ranitidine * DVT prophylaxis on heparin plan * DC diuretics * PT OT nutrition support * Continue bronchodilators/antibiotic coverage * Pre-existing medical condition management on home medications * SNF transfer likely a.m. Current Visit: Yes
[2019-08-03] MEDS: IPRATROPIUM/ALBUTEROL 3 ML AMPUL.NEB NEB SCH ×2 (05:10→07:16)
[2019-08-03] MEDS: 0.9 % SODIUM CHLORIDE 10 ML SYRINGE IV SCH (05:11)
[2019-08-03 06:50] LABS: Hematocrit 38.2 % (34.1-44.9); Hemoglobin 12.7 g/dL (11.2-15.7); Mean Cell Volume 117.2 fL (80.0-100.0); Mean Corpuscular HGB Conc 33.2 g/dL (31.0-36.0); Mean Platelet Volume 12.9 fL (7.4-10.4); RBC 3.26 M/mcL (3.59-5.38); Red Cell Distribution Width 16.1 % (11.5-14.5); WBC 11.2 K/mcL (4.50-11.00)
[2019-08-03 06:52] LABS: Platelet Count 110 K/mcL (140-440)
[2019-08-03] MEDS: BUDESONIDE 0.5 MG/2 ML AMPUL.NEB NEB SCH (07:16)
[2019-08-03 07:45] LABS: Bilirubin,Direct < 0.2 mg/dL (0.0-0.3)
[2019-08-03 08:03] LABS: ALT/SGPT 14 U/l (0-40); AST/SGOT 28 U/l (0-37); Albumin 3.3 gm/dL (3.2-5.2); Albumin/Globulin Ratio 1.1 (1.0-2.3); Alkaline Phosphatase 67 U/L (39-117); Bilirubin,Total 0.5 mg/dL (0.0-1.0); Blood Urea Nitrogen 35 mg/dl (8-23); Calcium 10.5 mg/dl (8.6-10.4); Carbon Dioxide 40 mmol/L (22-30); Chloride 86 mmol/L (96-108); Globulin 2.9 gm/dL (2.2-3.7); Glomerular Filtration Rate 87; Glucose 132 mg/dL (70-105); Lactate Dehydrogenase 302 U/L (94-250); Phosphorous 3.2 mg/dL (2.7-4.5); Triglycerides 167 mg/dl (<150); Uric Acid 6.5 mg/dL (2.5-8.0)
--- NOTE | 2019-08-03 08:11 | Discharge Summary ---
Medical - DS: Prov Patient information: Note initiated : 08/03/19 at 8:09 am Service Date, if different from initiated Date: [] Patient: Elizabeth Robles 73 y/o F admitted on 07/29/19 for failure to thrive, weakness. Chief Complaint: [] Date of admission: 07/29/19 14:38 Discharge date: 08/03/19 Primary care physician: PCP No Consults: 07/29/19 13:13 Consult to Physician [CONS] Stat Comment: Consulting Provider: Cj Borrero Reason For Exam: Physician to Consult Medical - DS: Meds - Discharge Medications Prescriptions: Cefdinir 300 mg PO BID #6 cap Transmission Status: Received by [facility] predniSONE [Deltasone] 40 mg PO DAILY #10 tab Transmission Status: Received by [facility] Active and Home Medications: Home Medications polyethylene glycol 3350 17 gram/dose oral powder 17 g PO QHS each 12/11/14 [History Confirmed 07/29/19 Last Taken 07/02/16 08:00] B-complex with vitamin C 1 tab-cap PO QDAY #30 tab 01/22/15 [Rx Confirmed 07/29/19 Last Taken 07/02/16 10:00] levalbuterol HCl 1.25 mg/3 mL solution for nebulization 1.25 mg INHALATION QID ml 08/04/15 [History Confirmed 07/29/19 Last Taken 07/02/16 22:00] aspirin 325 mg tablet 325 mg PO QDAY 01/14/16 [History Confirmed 07/29/19 Last Taken 07/02/16 10:00] cholecalciferol (vitamin D3) 50 mcg (2,000 unit) capsule 2,000 unit PO QDAY cap 01/14/16 [History Confirmed 07/29/19 Last Taken 07/02/16 10:00] acetaminophen 500 mg capsule 500 mg PO .q8hr PRN cap 08/01/16 [History Confirmed 07/29/19 Last Taken Unknown] cyanocobalamin (vitamin B-12) 1,000 mcg/mL injection solution 1,000 mcg IM QMONTH 08/05/16 [History Confirmed 07/29/19 Last Taken Unknown] ferrous sulfate 325 mg (65 mg iron) tablet 325 mg PO QDAY 08/05/16 [History Confirmed 07/29/19 Last Taken Unknown] fluticasone furoate 200 mcg/actuation blister powder for inhalation 200 mcg INHALATION Q24H each 09/19/16 [History Confirmed 07/29/19 Last Taken Unknown] albuterol sulfate 90 mcg/actuation aerosol inhaler 2 puff INHALATION .Q4-6H PRN #18 g 09/20/16 [Rx Confirmed 07/29/19 Last Taken Unknown] Oxygen 3 L 1 dose .ROUTE DAILY 07/29/19 [History Confirmed 07/29/19 Last Taken U nknown] Tiotropium Br/Olodaterol HCl [Stiolto Respimat Inhal [place]] 4 gm IH DAILY 07/29/19 [History Confirmed 07/29/19 Last Taken Unknown] Cefdinir 300 mg PO BID #6 cap 08/02/19 [Rx Last Taken Unknown] predniSONE [Deltasone] 40 mg PO DAILY #10 tab 08/02/19 [Rx Last Taken Unknown] Medical - DS: Hosp Hospital Course: Discharge diagnosis * Acute respiratory failure with hypercapnia-clinical resolution noted. Back at baseline. Blood gas normalized however chronic CO2 retainer with compensated bicarb elevation.. Off BiPAP. Will recommend outpatient follow-up with pulmonology and sleep study for PELON evaluation and home BiPAP * Diastolic heart failure clinically resolved-Off diuretics. Echocardiogram 60% EF * COPD exacerbation clinical improvement noted on bronchodilators/steroids/noninvasive ventilation. * Complicated UTI-was recently treated with ciprofloxacin. Continue additional 2 third-generation cephalosporin days * Severe deconditioning secondary to morbid obesity and inability to take care of self-initiate PT OT eval/directed therapies * Hypothyroidism home dose thyroxine * Anxiety disorder continue venlafaxine * GERD on ranitidine Brief hospital course Ms. Robles is a 73 year old F morbidly obese with a history of COPD on home oxygen and multiple medical issues who presents to the ER with worsening weakness/failure to function. She also endorses to increasing cough along with increasing shortness of breath. She denies associated fever or chills or diarrhea. She lives at home but has noted a progressive decline in functional status. Notably patient has had multiple recent hospitalization with UTI/weakness and deconditioning/COPD exacerbations and has been battling multiple comorbidities. She now presents to the ER with above symptoms. During initial work-up she was noted to be confused. ABG revealed a PCO2 of 125. She was promptly started on noninvasive mechanical ventilation. UA was consistent with pyuria. Chest imaging consistent with CHF. Patient started antibiotic coverage and subsequently hospitalist service was consulted. At the time evaluation patient is alert and able to answer most of the qu estions. She is currently on BiPAP. She denies chest pain, fever, but endorses to cough. 07/29-improved blood gas to 7.45/96. Chronic CO2 retainer attempting to wean BiPAP. More lucid alert and respond to commands. A. fib with bundle branch on telemetry. Respiratory panel negative. Repeat chest imaging 24 hours. Continue contact precautions. 07/30-patient doing well. Now off BiPAP. No overnight events. No concerns per staff. Lucid alert. Bicarb 45. Blood gas at baseline. Chronic CO2 retainer. Would benefit from home BiPAP. Anticipate SNF transfer in the next 24 to 48 hours. No fever chills. Transfer to medical floor. 07/31 -patient very drowsy lethargic and confused. ABG 7.55/60 9/55. No overnight events. No additional concerns per nursing staff. Anticipate SNF transfer in the next 24 hours. Continue Diamox for contraction alkalosis. DC IV Lasix. Net 4000 cc negative fluid balance. 08/01-patient doing well. No overnight events. No concerns per staff. No fever chills. Much improved mental status. [facility] hours. Ongoing PT OT. Tolerating diet. 08/02-patient doing well. Transferring to SNF for continued posthospitalization rehab. No overnight fever chills. No other concerns per nursing staff. Discharge diagnosis: . - Time Spent with Patient Total time spent providing and/or coordinating discharge services: Greater than 30 minutes Medical - DS: Exam - Constitutional Vitals: Vital Signs Temp Pulse Pulse Resp BP BP Pulse Ox 08/03/19 07:32 22 92 08/03/19 07:19 86 15 08/03/19 06:40 98.3 F 65 16 104/62 92 08/03/19 03:51 98.5 F 83 18 108/76 91 08/02/19 23:30 91 H 18 08/02/19 23:04 98.4 F 91 H 20 103/73 96 08/02/19 20:00 98.1 F 96 H 20 112/70 95 08/02/19 19:43 107 H 18 91 08/02/19 16:00 98.3 F 86 20 104/72 92 08/02/19 15:14 99 H 15 08/02/19 12:00 97.6 F 82 24 H 100/73 96 08/02/19 11:59 86 15 93 08/02/19 11:13 86 15 Intake and Output 08/02/19 08/03/19 08/03/19 21:59 05:59 13:59 Intake Total 540 400 Output Total 100 750 Balance 440 -350 Intake: Oral 540 400 Output: Urine Catheter Amount 750 Void Amount 100 Other: Meal Breakfast Percent of Meal Consumed 100% Feeding Ability Assist with Tray Set Up Urine Appearance Clear Clear Uretheral ([place]) Clear Clear Urine Color Straw Dark Yellow Uretheral ([place]) Dark Yellow Dark Yellow Urine Odor Normal Normal Uretheral ([place]) Normal Normal Stool Size Copious Stool Color Brown Stool Consistency Liquid Loose # of times incontinent of 1 1 Bowels Weight 273 lb 12.8 oz Medical - DS: Data Labs on day of discharge: Labs from last 24 hours 08/03/19 08/03/19 08/02/19 05:30 05:30 05:00 WBC 11.2 H RBC 3.26 L Hgb 12.7 Hct 38.2 MCV 117.2 H MCH 39.0 H MCHC 33.2 RDW 16.1 H Plt Count 110 L MPV 12.9 H Total Counted Pending 100 Seg Neutrophils % 93 H Band Neutrophils % Not Reportable Lymphocytes % 3 L Monocytes % (Manual) 4 Platelet Estimate Pending Decreased RBC Morphology Pending Abnorm A Anisocytosis 1+ A Macrocytosis 2+ A Sodium 140 Potassium 3.9 Chloride 86 L Carbon Dioxide 40 H Anion Gap 14.0 BUN 35 H Creatinine 0.7 GFR Calculation 87 Glucose 132 H Uric Acid 6.5 Calcium 10.5 H Phosphorus 3.2 Magnesium 2.0 Total Bilirubin 0.5 Direct Bilirubin < 0.2 GGT 13 AST 28 ALT 14 Alkaline Phosphatase 67 Lactate Dehydrogenase 302 H Total Protein 6.2 Albumin 3.3 Globulin 2.9 Albumin/Globulin Ratio 1.1 Triglycerides 167 H Medical - DS: A/P - Patient/Caregiver Discharge Instructions Activity: as per physical therapy Diet: Regular Diet Additional Instructions: Follow-up PCP in 5 days I recommend primary care physician to check INR, CBC BMP UA as a posthospital follow-up in 1 week. Antibiotics for additional 2 days oxygen if required to maintain sats 95 Outpatient sleep study/pulmonary follow-up Continue aggressive bowel regimen to prevent constipation Continue fall precautions Daily weights measurements and take additional 40 mg Lasix for 3 days if weight gain over 4 pounds over baseline or worsening SOB and call primary care physician if inadequate response to Lasix Continue aggressive PT OT evaluation and treatment at SNF. ST eval and treatment if indicated High protein calorie supplements All meals on chair sitting upright at 90 degrees to prevent aspiration Return to ER if worsening fever chills shortness of breath, diarrhea, bleeding Review risk and side effect profile of medications including antibiotics. Side effect may include mild to severe reaction including rash, diarrhea, cdiff and even which can be prevented by close follow-up with PCP and monitoring for side effects Continue diet and activity as advised Discussed importance of medication adherence Please review medication list with patient prior to discharge Please schedule follow-up with PCP/Providers prior to discharge and provide printouts Prescriptions: Cefdinir 300 mg PO BID #6 cap Transmission Status: Received by [facility] predniSONE [Deltasone] 40 mg PO DAILY #10 tab Transmission Status: Received by [facility] Furosemide [Lasix] 20 mg PO DAILY #30 tab Transmission Status: Pending to [facility] - Problem Maintenance (1) Acute respiratory failure with hypoxia and hypercarbia Status: Acute - Follow up Plan Follow up with: No,PCP [Primary Care Provider] - Disposition: [facility] Prognosis: Fair Rehab Potential: Fair I certify that the patient requires SNF services: No Overall status at discharge: patient is progressing back to baseline
[2019-08-03] MEDS: ASPIRIN 325 MG ENTERIC COATED TABLET PO SCH (08:32)
[2019-08-03] MEDS: MULTIVIT,THER IRON,CA,FA & MIN 1 TABLET PO SCH (08:32)
[2019-08-03] MEDS: HEPARIN 5,000 UNIT/ML VIAL SQ SCH (08:33)
[2019-08-03] MEDS: DOCUSATE SODIUM 100 MG CAPSULE PO SCH (08:33)
[2019-08-03] MEDS: methylPREDNISolone SOD SUCC 125 MG/2 ML VIAL IV SCH (08:33)
[2019-08-03] MEDS: cefTRIAXone 2 GM in DEXTROSE 5% IN WATER 50 ML IV SCH (08:34)
[2019-08-03 08:55] LABS: Anisocytosis 1+ (NONE SEEN); Lymphocytes % 3 % (15-49); Macrocytosis 2+ (NONE SEEN); Monocytes % (Manual) 3 % (1-12); Myelocytes % 1 % (0-0); Platelet Estimate DECREASED (NORMAL); RBC Morphology ABNORM (NORMAL); Segmented Neutrophils % 93 % (38-78)
== END 2019-08-03 10:13 | DRG 189 ==
LOC: ED 09:31 → ICU 14:38 → MEDSUR 07-31 13:10
PROVIDERS: ADMIT Internal Medicine; ATTEND Internal Medicine

== ENCOUNTER 2019-09-10 11:53 | Observation (INO) ==
[2019-09-10] MEDS ORDERED: IOPAMIDOL 100 ML BOTTLE IV ONE (11:54)
--- NOTE | 2019-09-10 12:42 | Emergency Department Note ---
Weakness HPI - General Chief complaint: Weakness Stated complaint: failure to thrive, weakness Time Seen by Provider: 09/10/19 11:59 Source: patient, EMS Mode of arrival: EMS Limitations: other - History of Present Illness HPI Narrative: This patient is under general failure to thrive for quite a while and spent some time at [facility] but now is been home recently. She continues to have failure to thrive weakness and is bedridden. does not feel that he can take care of her at home any longer. She is unable to give us much history and does not have much specific complaints although she is little tender in her abdomen. - Related Data Home Medications Medication Instructions Recorded Confirmed polyethylene glycol 3350 17 17 g PO QHS each 12/11/14 07/29/19 gram/dose oral powder levalbuterol HCl 1.25 mg/3 mL 1.25 mg INHALATION QID ml 08/04/15 07/29/19 solution for nebulization aspirin 325 mg tablet 325 mg PO QDAY 01/14/16 07/29/19 cholecalciferol (vitamin D3) 50 2,000 unit PO QDAY cap 01/14/16 07/29/19 mcg (2,000 unit) capsule acetaminophen 500 mg capsule 500 mg PO .q8hr PRN cap 08/01/16 07/29/19 cyanocobalamin (vitamin B-12) 1,000 mcg IM QMONTH 08/05/16 07/29/19 1,000 mcg/mL injection solution ferrous sulfate 325 mg (65 mg 325 mg PO QDAY 08/05/16 07/29/19 iron) tablet fluticasone furoate 200 200 mcg INHALATION Q24H each 09/19/16 07/29/19 mcg/actuation blister powder for inhalation Oxygen 3 L 1 dose .ROUTE DAILY 07/29/19 07/29/19 Tiotropium Br/Olodaterol HCl 4 gm IH DAILY 07/29/19 07/29/19 [Stiolto Respimat Inhal [place]] Previous Rx's Medication Instructions Recorded B-complex with vitamin C 1 tab-cap PO QDAY #30 tab 01/22/15 albuterol sulfate 90 mcg/actuation 2 puff INHALATION .Q4-6H PRN #18 g 09/20/16 aerosol inhaler Cefdinir 300 mg PO BID #6 cap 03/20/20 predniSONE [Deltasone] 40 mg PO DAILY #10 tab 08/02/19 Furosemide [Lasix] 20 mg PO DAILY #30 tab 08/03/19 Allergies Allergy/AdvReac Type Severity Reaction Status Date / Time Erythromycin Base Allergy Mild Rash Verified 09/10/19 11:58 Sulfa (Sulfonamide Allergy Mild Rash Verified 09/10/19 11:58 Antibiotics) tape Allergy Uncoded 06/21/18 11:31 Review of Systems All systems ED: reviewed and negative except as stated. Past Medical History - Past Medical History PMFSH Narrative: Medical History Laceration (Acute) Fracture of malleolus of left ankle (Acute) Urinary tract infection (Acute) Complicated UTI (urinary tract infection) (Acute) Left ankle sprain (Acute) Osteoarthritis (Chronic) Stomach problems (Chronic) Primary osteoarthritis of right hand (Chronic) Unilateral primary osteoarthritis of first carpometacarpal joint, right hand (Chronic) Carpal tunnel syndrome of right wrist (Chronic) Primary osteoarthritis of knees, bilateral (Chronic) Radiculopathy, cervical region (Chronic) Cobalamin deficiency (Chronic) Paresthesia (Chronic) Rotator cuff syndrome (Acute) 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) Peripheral vascular disease (Chronic) Pseudophakia (Chronic) Obstructive sleep apnea (Chronic) Obesity, morbid (Chronic) MRSA (methicillin resistant Staphylococcus aureus) (Chronic) Rhinitis, allergic (Chronic) Sleep apnea (Chronic) Tobacco abuse (Chronic 06/25/13) Migraine (Chronic) Lymphedema (Chronic) Disorder of kidney and ureter (Chronic) Hyperlipidemia (Chronic) Hypercholesterolemia (Chronic) HTN (hypertension) (Chronic) Heart disease (Chronic) Gastroesophageal reflux (Chronic) Fatigue (Chronic) Duodenal ulcer without hemorrhage, perforation, or obstruction (Chronic) Depression (Chronic) Dental disorder (Chronic) Coronary artery disease (Chronic) Constipation (Chronic) Chronic obstructive pulmonary disease (Chronic) Cardiomyopathy (Chronic) Blurred vision (Chronic) Urinary incontinence (Chronic) Blepharitis (Chronic) Chest pain, atypical (Chronic) Atrial fibrillation (Chronic) Asthma (Chronic) Arthritis (Chronic) Anxiety disorder (Chronic) After-cataract obscuring vision (Chronic) Fluid overload (Resolved) Pain in joint, ankle and foot (Resolved) Ulcer of ankle (Resolved) Urinary tract infection (Resolved 07/16/14) Congestive heart failure (Ruled-out) Past Surgical History H/O: hysterectomy (Acute) History of bladder suspension procedure (Resolved) History of breast biopsy (Resolved) History of cardiac catheterization (Resolved) History of carpal tunnel repair (Resolved) History of cataract surgery (Resolved) History of cholecystectomy (Resolved) History of hemorrhoidectomy (Resolved) History of hysterectomy (Resolved) Status post gastroplasty (Resolved) Family History Father Malignant neoplasm of lung Chronic obstructive pulmonary disease Sister Anxiety disorder Atrial fibrillation Chronic Kidney Disease Depression Type 2 diabetes mellitus Disorder of liver Mother Essential hypertension Atrial fibrillation Brother Atrial fibrillation Chronic Kidney Disease Type 2 diabetes mellitus Medical history: Reports: arthritis, asthma, atrial fibrillation, CHF, COPD, CAD (coronary artery disease), GERD, hyperlipidemia, hypertension, migraine, peripheral artery disease, thyroid disease, other (Hypothyroidism, carpal tunnel right wrist. Peripheral vascular disease, morbid obesity, GERD, migraine headache, hypercholesterolemia. Hypertension, oppression, to fibrillation, asthma,) Psychiatric history: Reports: anxiety, depression Surgical history ED: Reports: cataract, cholecystectomy, hysterectomy - Social History smoking status: Unknown if ever smoked Alcohol use: Reports: None Drug use: Reports: none Physical Exam Limitations: altered mental status, physical limitation, other General appearance: alert Head: atraumatic Eye: Present: normal appearance ENT: Present: mucous membranes dry Neck: Present: normal inspection Chest: Present: normal inspection Respiratory: Present: normal lung sounds bilaterally Cardiovascular: Present: regular rate, normal rhythm, normal heart sounds Abdominal: Present: soft, tenderness. Absent: distention, guarding, rebound, rigidity Abdominal tenderness: Present: RUQ, RLQ, moderate Neurological: Present: alert Psychiatric: Present: normal affect Skin: Present: warm, dry Course Vital Signs Temperature 97.3 F 09/10/19 11:54 Pulse Rate 96 H 09/10/19 11:54 Respiratory Rate 22 09/10/19 11:54 Blood Pressure 109/82 09/10/19 11:54 Pulse Oximetry (%) 99 09/10/19 11:54 Temperature 97.3 F 09/10/19 11:54 Pulse Rate 90 09/10/19 15:17 Respiratory Rate 20 09/10/19 15:17 Blood Pressure 108/73 09/10/19 15:17 Pulse Oximetry (%) 93 09/10/19 15:17 Weakness - MDM Narrative Medical decision making narrative: Blood gas showed a PCO2 of 115 and we did turn down her oxygen. This patient has bedridden at home and has had failure to thrive for quite a long time. Her has dementia and the family does not feel like they can continue to care for her at home. They would like her admitted for comfort care only and placed in hospice somewhere other than home. nursing services manager working on that. I discussed the case with Dr. Schmidt and she will be admitted to the hospital here. - Lab Data Lab results reviewed: Yes I reviewed the patient's lab results. Result diagrams: 09/10/19 12:53 09/10/19 12:53 Lab Results 09/10/19 09/10/19 Range/Units 12:53 12:53 WBC 7.2 (4.50-11.00) K/mcL RBC 3.54 L (3.59-5.38) M/mcL Hgb 13.5 (11.2-15.7) g/dL Hct 44.9 (34.1-44.9) % MCV 126.8 H (80.0-100.0) fL MCH 38.1 H (26.0-34.0) pg MCHC 30.1 L (31.0-36.0) g/dL RDW 13.2 (11.5-14.5) % Plt Count 130 L (140-440) K/mcL MPV 12.4 H (7.4-10.4) fL Gran % 71.6 (38.0-78.0) % Lymph % (Auto) 15.2 L (15.5-49.0) % [place] % (Auto) 9.8 (1.0-12.0) % Eos % (Auto) 1.7 (0.0-7.0) % Baso % (Auto) 1.7 (0.0-2.0) % Gran # 5.17 (1.80-8.00) K/mcL Lymph # (Auto) 1.10 L (1.50-4.80) K/mcL [place] # (Auto) 0.71 (0.10-0.90) K/mcL Eos # (Auto) 0.12 (0.00-0.70) K/mcL Baso # (Auto) 0.12 (0.00-0.30) K/mcL Sodium 145 (133-145) mmol/L Potassium 3.5 (3.3-5.1) mmol/L Chloride 93 L (96-108) mmol/L Carbon Dioxide 46 H* (22-30) mmol/L Anion Gap 6.0 L (8-16) BUN 19 (8-23) mg/dl Creatinine 0.4 L (0.6-1.1) mg/dl GFR Calculation 104 Glucose 104 (70-105) mg/dL Calcium 9.4 (8.6-10.4) mg/dl Total Bilirubin 0.7 (0.0-1.0) mg/dL AST 20 (0-37) U/l ALT 6 (0-40) U/l Alkaline Phosphatase 117 (39-117) U/L NT-Pro-B Natriuret Pep 2220.0 H (0-125) pg/ml Total Protein 5.9 (5.9-8.4) gm/dL Albumin 2.7 L (3.2-5.2) gm/dL Globulin 3.2 (2.2-3.7) gm/dL Albumin/Globulin Ratio 0.8 L (1.0-2.3) - Radiology Data Radiology results reviewed: Yes I reviewed the patient's radiology results. Disposition Pt seen by PUBLICIST/PA only: No Clinical Impression: Acute respiratory failure with hypoxia and hypercarbia, Obstructive sleep apnea, Chronic obstructive pulmonary disease Disposition: Xfer As Outpt/Obs ([facility]) Condition: Serious Referrals: No,PCP [Primary Care Provider] - Time of Disposition: 15:39
[2019-09-10] MEDS: LACTATED RINGERS 1,000 ML IV SCH ×2 (12:54→19:18)
[2019-09-10 13:19] LABS: Basophils # (Auto) 0.12 K/mcL (0.00-0.30); Basophils % (Auto) 1.7 % (0.0-2.0); Eosinophils # (Auto) 0.12 K/mcL (0.00-0.70); Eosinophils % (Auto) 1.7 % (0.0-7.0); Granulocytes % (Auto) 71.6 % (38.0-78.0); Hematocrit 44.9 % (34.1-44.9); Hemoglobin 13.5 g/dL (11.2-15.7); Lymphocytes % (Auto) 15.2 % (15.5-49.0); Mean Cell Volume 126.8 fL (80.0-100.0); Mean Corpuscular HGB Conc 30.1 g/dL (31.0-36.0); Mean Platelet Volume 12.4 fL (7.4-10.4); Monocytes # (Auto) 0.71 K/mcL (0.10-0.90); Monocytes % (Auto) 9.8 % (1.0-12.0); Platelet Count 130 K/mcL (140-440); RBC 3.54 M/mcL (3.59-5.38); Red Cell Distribution Width 13.2 % (11.5-14.5); WBC 7.2 K/mcL (4.50-11.00)
--- NOTE | 2019-09-10 13:33 | XRay Report ---
CLINICAL INFORMATION: weak COMPARISON: 07/29/2019 FINDINGS: Moderate cardiomegaly is unchanged. Mild mediastinal widening has increased. Moderate region of consolidated atelectasis in the left lower lobe in the retrocardiac region with small left pleural effusion has developed IMPRESSION: 1. Moderate atelectasis left lower lobe with small left pleural effusion. 2. Moderate cardiomegaly unchanged. No evidence CHF 3. Mild mediastinal widening most common cause would be excessive mediastinal fat deposition. Adenopathy is possible as well Interpreted and Authenticated by: Guru Birch 09/10/19
[2019-09-10 13:40] LABS: ALT/SGPT 6 U/l (0-40); AST/SGOT 20 U/l (0-37); Albumin 2.7 gm/dL (3.2-5.2); Albumin/Globulin Ratio 0.8 (1.0-2.3); Alkaline Phosphatase 117 U/L (39-117); Bilirubin,Total 0.7 mg/dL (0.0-1.0); Blood Urea Nitrogen 19 mg/dl (8-23); Calcium 9.4 mg/dl (8.6-10.4); Globulin 3.2 gm/dL (2.2-3.7); Glomerular Filtration Rate 104; Glucose 104 mg/dL (70-105)
[2019-09-10 13:47] LABS: Carbon Dioxide 46 mmol/L (22-30); Chloride 93 mmol/L (96-108)
--- NOTE | 2019-09-10 15:18 | Cat Scan Report ---
CLINICAL INFORMATION: Abdominal pain. Weight loss COMPARISON: Chest CT 11/11/2016 TECHNIQUE: Enteric contrast was utilized. 80 cc of Isovue-370 were injected intravenously, and 50 seconds later 2.5 mm helical slices were obtained from the lung apices through the subtrochanteric regions of the femurs. Following reconstruction, 2.5 mm sagittal, coronal and axial reformatted images were processed and reviewed at multiple windows and levels. 7 mm MIP reconstructions were obtained through the lungs to optimize nodule detection.The exam was performed using radiation dose optimization techniques including, but not limited to, automated exposure control, adjustment of the mA and/or kV according to patient size and use of iterative reconstruction technique. FINDINGS: Pulmonary parenchymal windows show segmental atelectasis of the medial, posterior and lateral segments of the left lower lobe and the medial and posterior segments right lower lobe and there are moderate left and small right pleural effusions. There is equivocal interlobular edema in the upper and lower lobes. Mediastinal windows show the heart is moderately enlarged probable scattered subendocardial infarct in the right and left ventricles. The thoracic aorta is normal diameter with scattered atherosclerotic plaque. Pulmonary arteries are mildly distended. There is no adenopathy in the mediastinal hilar or axillary region. The esophagus is grossly normal. Scattered nodules in the thyroid ranging up to 12 mm in the mid right thyroid are unchanged from 2017. Given the stability, these should be considered benign thyroid adenomas. Abdominal images show mild fatty change within the liver. The gallbladder is surgically absent. The common bile duct is mildly dilated, 12 mm, compatible with post cholecystectomy state. Moderate pancreatic atrophy in the head and neck region appreciated. The adrenal glands, spleen and aorta are normal. Right kidney is unremarkable. There are two stones in the left renal pelvis 12 mm and 11 mm respectively. No evidence of hydronephrosis, however there is mild thickening of the transitional epithelium in the upper collecting system suggesting fibrosis or inflammation. Pelvic images show urinary bladder is unremarkable. Hysterectomy and oophorectomy changes noted. There is mild concentric wall thickening of the distal sigmoid and rectum and mild inflammation or edema in the posterior perirectal fat. The remaining colon and small bowel are unremarkable. Nikolay-en-Y Gastro jejunostomy changes are grossly normal. Bone windows show a chronic subcapital fracture of the left hip with the femoral neck displaced 15 mm superiorly and and superiorly. Moderate granulation tissue separation of fracture fragments. IMPRESSION: 1. Moderate cardiomegaly with distention of the pulmonary vasculature, moderate left and small right pleural effusions with equivocally interlobular edema suggesting mild CHF. 2. Segmental atelectasis in the medial posterior lateral basilar segment of the left lower lobe and medial basilar segment of the right lower lobe. 3. Two stones in the left renal pelvis, 12 mm and 11 mm, respectively. No evidence of hydronephrosis. Thickening of the transitional epithelium is compatible with inflammation or fibrosis. 4. Moderate atrophy of the pancreatic head and neck. 5. Mild concentric wall thickening of the distal sigmoid and rectum with inflammation or edema in the perirectal fat is prominent posteriorly. This could indicate inflammation or ischemia. Consider colonoscopy. No supportive evidence for malignancy. 6. Chronic displaced subcapital fracture left hip. Interpreted and Authenticated by: Guru Birch 09/10/19
--- NOTE | 2019-09-10 17:13 | Internal Med History&Physical ---
Medical - H&P: [facility] Patient information: Note initiated : 09/10/19 at 5:10 pm Service Date, if different from initiated Date: [] Patient: Elizabeth Robles 73 y/o F admitted on 09/10/19 for failure to thrive, weakness. Chief Complaint: [] Chief complaint: Shortness of breath weakness History of present illness: Ms. Robles is a 73 year old F morbidly obese lady with a history of advanced COPD CO2 retainer presents to the ER with worsening weakness/failure to function and unable to take care of herself. After recent hospitalization she was discharged to [facility] following which he was discharged home. Since then patient has not been able to take care of self and has gradually deteriorated. She has been essentially laying on bed. With increasing concerns she was brought in to ER. Initial work-up in the ER was essentially unremarkable except for chronic CO2 retention. Patient is currently on baseline oxygen. Per family and patient she would like to be comfort care only and would like to transition to hospice at a care facility due to inability of self and family to provide adequate care. She otherwise denies fever, chills, diarrhea, dysuria, headache, photophobia. She denies sick contacts Review system 10 point review system was performed and is negative except for ones discussed above Medical - H&P: [facility] Medical history: Urinary tract infection (Acute) Fracture of malleolus of left ankle (Acute) Laceration (Acute) Left ankle sprain (Acute) Rotator cuff syndrome (Acute) After-cataract obscuring vision (Chronic) Anxiety disorder (Chronic) Arthritis (Chronic) Asthma (Chronic) Atrial fibrillation (Chronic) Blepharitis (Chronic) Blurred vision (Chronic) Cardiomyopathy (Chronic) Carpal tunnel syndrome of right wrist (Chronic) Chest pain, atypical (Chronic) Chronic obstructive pulmonary disease (Chronic) Cobalamin deficiency (Chronic) Constipation (Chronic) Coronary artery disease (Chronic) Dental disorder (Chronic) Depression (Chronic) Disorder of kidney and ureter (Chronic) Duodenal ulcer without hemorrhage, perforation, or obstruction (Chronic) Fatigue (Chronic) Gastroesophageal reflux (Chronic) HTN (hypertension) (Chronic) Heart disease (Chronic) Hypercholesterolemia (Chronic) Hyperlipidemia (Chronic) Lymphedema (Chronic) MRSA (methicillin resistant Staphylococcus aureus) (Chronic) Migraine (Chronic) Obesity, morbid (Chronic) Obstructive sleep apnea (Chronic) Osteoarthritis (Chronic) Paresthesia (Chronic) Peripheral vascular disease (Chronic) Primary osteoarthritis of knees, bilateral (Chronic) Primary osteoarthritis of right hand (Chronic) Pseudophakia (Chronic) Radiculopathy, cervical region (Chronic) Rhinitis, allergic (Chronic) Sleep apnea (Chronic) Stomach problems (Chronic) Tobacco abuse (Chronic 06/25/13) Unilateral primary osteoarthritis of first carpometacarpal joint, right hand (Chronic) Urinary incontinence (Chronic) 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) Fluid overload (Resolved) Pain in joint, ankle and foot (Resolved) Ulcer of ankle (Resolved) Urinary tract infection (Resolved 07/16/14) Congestive heart failure (Ruled-out) Surgical history: Past Surgical History H/O: hysterectomy (Acute) History of bladder suspension procedure (Resolved) History of breast biopsy (Resolved) History of cardiac catheterization (Resolved) History of carpal tunnel repair (Resolved) History of cataract surgery (Resolved) History of cholecystectomy (Resolved) History of hemorrhoidectomy (Resolved) History of hysterectomy (Resolved) Status post gastroplasty (Resolved) Family history: reviewed and not pertinent Social history: ex smoker lives with neg report of substance use. Medical - H&P: Meds Home Medications Medication Instructions Recorded Confirmed Type polyethylene glycol 3350 17 17 g PO QHS each 12/11/14 07/29/19 History gram/dose oral powder B-complex with vitamin C 1 tab-cap PO QDAY #30 tab 01/22/15 07/29/19 Rx levalbuterol HCl 1.25 mg/3 mL 1.25 mg INHALATION QID ml 08/04/15 07/29/19 History solution for nebulization aspirin 325 mg tablet 325 mg PO QDAY 01/14/16 07/29/19 History cholecalciferol (vitamin D3) 50 2,000 unit PO QDAY cap 01/14/16 07/29/19 History mcg (2,000 unit) capsule acetaminophen 500 mg capsule 500 mg PO .q8hr PRN cap 08/01/16 07/29/19 History cyanocobalamin (vitamin B-12) 1,000 mcg IM QMONTH 08/05/16 07/29/19 History 1,000 mcg/mL injection solution ferrous sulfate 325 mg (65 mg 325 mg PO QDAY 08/05/16 07/29/19 History iron) tablet fluticasone furoate 200 200 mcg INHALATION Q24H each 09/19/16 07/29/19 History mcg/actuation blister powder for inhalation albuterol sulfate 90 mcg/actuation 2 puff INHALATION .Q4-6H PRN #18 g 09/20/16 07/29/19 Rx aerosol inhaler Oxygen 3 L 1 dose .ROUTE DAILY 07/29/19 07/29/19 History Tiotropium Br/Olodaterol HCl 4 gm IH DAILY 07/29/19 07/29/19 History [Stiolto Respimat Inhal [place]] predniSONE [Deltasone] 40 mg PO DAILY #10 tab 08/02/19 Rx Furosemide [Lasix] 20 mg PO DAILY #30 tab 08/03/19 Rx Allergies Allergy/AdvReac Type Severity Reaction Status Date / Time Erythromycin Base Allergy Mild Rash Verified 09/10/19 11:58 Sulfa (Sulfonamide Allergy Mild Rash Verified 09/10/19 11:58 Antibiotics) tape Allergy Uncoded 06/21/18 11:31 Medical - H&P: Exam - Constitutional Vitals: Temp Pulse Resp BP Pulse Ox 97.3 F 85 20 104/59 93 09/10/19 11:54 09/10/19 16:22 09/10/19 16:22 09/10/19 16:22 09/10/19 16:22 General appearance: no acute distress Exam: Cooperative and alert No anxiety Head normocephalic Morbidly obese oral cavity dry Neck no lymphadenopathy No ear nose discharge S1-S2 occasionally irregular Nonlabored breathing Abdomen pendulous Lower extremity no cyanosis clubbing no joint swelling minimal lymphedema Stool soiling gluteal cleft Skin no suspicious lesion psych anxious and lethargic Neuro nonfocal Medical - H&P: Reslt - Labs CBC & Chem 7: 09/10/19 12:53 09/10/19 12:53 Labs: Short CBC 09/10/19 Range/Units 12:53 WBC 7.2 (4.50-11.00) K/mcL Hgb 13.5 (11.2-15.7) g/dL Hct 44.9 (34.1-44.9) % Plt Count 130 L (140-440) K/mcL BMP 09/10/19 12:53 Sodium 145 Potassium 3.5 Chloride 93 L Carbon Dioxide 46 H* BUN 19 Creatinine 0.4 L Glucose 104 Calcium 9.4 Liver Function 09/10/19 Range/Units 12:53 Total Bilirubin 0.7 (0.0-1.0) mg/dL AST 20 (0-37) U/l ALT 6 (0-40) U/l Alkaline Phosphatase 117 (39-117) U/L Albumin 2.7 L (3.2-5.2) gm/dL Medical - H&P: A/P (1) End stage chronic obstructive pulmonary disease Current visit: Yes Status: Acute * End-stage COPD continue bronchodilators/oxygen/steroids. Patient and family requesting transfer to facility for end-of-life care/hospice * History of NYHA class III systolic heart failure. Currently well compensated. Echocardiogram from prior visit 60% EF * Severe deconditioning secondary to morbid obesity and inability to take care of self-all therapies directed towards comfort * Hypothyroidism continue home dose thyroxine * Anxiety disorder continue venlafaxine * DVT prophylaxis on heparin plan * Observation admit * Bronchodilators/oxygen * All therapies/diet/activity directed towards comfort * Case management coordinate discharge planning
[2019-09-10] MEDS ORDERED: HYDROmorphone* 2 MG/ML VIAL IV PRN (17:19)
[2019-09-10] MEDS ORDERED: POTASSIUM CHLORIDE 20 MEQ PACKET PO PRN (17:19)
[2019-09-10] MEDS ORDERED: ONDANSETRON 4 MG/2 ML VIAL IV PRN (17:19)
[2019-09-10] MEDS ORDERED: BISACODYL 10 MG SUPP.RECT PR PRN (17:19)
[2019-09-10] MEDS ORDERED: POLYETHYLENE GLYCOL 3350 17 GM PACKET PO PRN (17:19)
[2019-09-10] MEDS ORDERED: MAGNESIUM SULFATE 2 GM/50 ML BAG IV PRN (17:19)
[2019-09-10] MEDS ORDERED: 0.9 % SODIUM CHLORIDE 1,000 ML IV SCH (17:19)
[2019-09-10] MEDS ORDERED: ACETAMINOPHEN 325 MG TABLET PO PRN (17:19)
[2019-09-10] MEDS ORDERED: MELATONIN 3 MG TABLET PO PRN (17:19)
[2019-09-10] MEDS ORDERED: ONDANSETRON 4 MG ODT TABLET SL PRN (17:19)
[2019-09-10] MEDS ORDERED: HYDROcodone/APAP 5/325MG TABLET PO PRN (17:19)
[2019-09-10] MEDS ORDERED: ACETAMINOPHEN 650 MG/65 ML BOTTLE IV PRN (17:19)
[2019-09-10] MEDS ORDERED: BUDESONIDE 0.5 MG/2 ML AMPUL.NEB NEB ONE (19:22)
[2019-09-10] MEDS ORDERED: IPRATROPIUM/ALBUTEROL 3 ML AMPUL.NEB NEB ONE (19:22)
[2019-09-10] MEDS: IPRATROPIUM/ALBUTEROL 3 ML AMPUL.NEB NEB SCH ×2 (19:27→23:05)
[2019-09-10] MEDS: BUDESONIDE 0.5 MG/2 ML AMPUL.NEB NEB SCH (19:27)
[2019-09-10] MEDS: DOCUSATE SODIUM 100 MG CAPSULE PO SCH (20:44)
[2019-09-10] MEDS: HEPARIN 5,000 UNIT/ML VIAL SQ SCH (20:44)
[2019-09-10] MEDS: 0.9 % SODIUM CHLORIDE 10 ML SYRINGE IV SCH (20:45)
[2019-09-10] MEDS ORDERED: SENNOSIDES/DOCUSATE SODIUM 1 TAB TABLET PO SCH (21:00)
[2019-09-11] MEDS: IPRATROPIUM/ALBUTEROL 3 ML AMPUL.NEB NEB SCH ×3 (03:22→11:00)
[2019-09-11] MEDS: 0.9 % SODIUM CHLORIDE 10 ML SYRINGE IV SCH (04:05)
[2019-09-11 06:25] LABS: Hematocrit 41.3 % (34.1-44.9); Hemoglobin 12.5 g/dL (11.2-15.7); Mean Cell Volume 124.4 fL (80.0-100.0); Mean Corpuscular HGB Conc 30.3 g/dL (31.0-36.0); Mean Platelet Volume 12.5 fL (7.4-10.4); Platelet Count 121 K/mcL (140-440); RBC 3.32 M/mcL (3.59-5.38); Red Cell Distribution Width 13.2 % (11.5-14.5); WBC 7.2 K/mcL (4.50-11.00)
[2019-09-11 06:48] LABS: ALT/SGPT 6 U/l (0-40); AST/SGOT 19 U/l (0-37); Albumin 2.4 gm/dL (3.2-5.2); Albumin/Globulin Ratio 0.8 (1.0-2.3); Alkaline Phosphatase 109 U/L (39-117); Bilirubin,Direct 0.3 mg/dL (0.0-0.3); Bilirubin,Total 0.8 mg/dL (0.0-1.0); Blood Urea Nitrogen 17 mg/dl (8-23); Calcium 9.2 mg/dl (8.6-10.4); Globulin 2.9 gm/dL (2.2-3.7); Glomerular Filtration Rate 104; Glucose 92 mg/dL (70-105); Lactate Dehydrogenase 235 U/L (94-250); Triglycerides 152 mg/dl (<150); Uric Acid 5.7 mg/dL (2.5-8.0)
[2019-09-11 06:56] LABS: Carbon Dioxide 43 mmol/L (22-30); Chloride 92 mmol/L (96-108); Phosphorous 2.1 mg/dL (2.7-4.5)
[2019-09-11] MEDS: BUDESONIDE 0.5 MG/2 ML AMPUL.NEB NEB SCH (07:12)
[2019-09-11 07:58] LABS: Band Neutrophils % 1 % (0-10); Eosinophils % (Manual) 1 % (0-7); Lymphocytes % 14 % (15-49); Macrocytosis 3+ (NONE SEEN); Metamyelocytes % 1 % (0-0); Monocytes % (Manual) 9 % (1-12); Platelet Estimate DECREASED (NORMAL); RBC Morphology ABNORM (NORMAL); Segmented Neutrophils % 74 % (38-78)
[2019-09-11] MEDS: DOCUSATE SODIUM 100 MG CAPSULE PO SCH (08:43)
[2019-09-11] MEDS: HEPARIN 5,000 UNIT/ML VIAL SQ SCH (08:44)
--- NOTE | 2019-09-11 10:14 | Internal Med Progress Note ---
Medical - PN: Subj Patient information: Note initiated : 09/11/19 at 10:12 am Service Date, if different from initiated Date: [] Patient: Elizabeth Robles a 73 y/o F admitted on 09/10/19 for failure to thrive, weakness. Chief Complaint: [] Interval history: Ms. Robles is a 73 year old F morbidly obese lady with a history of advanced COPD CO2 retainer presents to the ER with worsening weakness/failure to function and unable to take care of herself. After recent hospitalization she was discharged to [facility] following which he was discharged home. Since then patient has not been able to take care of self and has gradually deteriorated. She has been essentially laying on bed. With increasing concerns she was brought in to ER. Initial work-up in the ER was essentially unremarkable except for chronic CO2 retention. Patient is currently on baseline oxygen. Per family and patient she would like to be comfort care only and would like to transition to hospice at a care facility due to inability of self and family to provide adequate care. She otherwise denies fever, chills, diarrhea, dysuria, headache, photophobia. 09/10-patient remains encephalopathic and confused however cooperative. No overnight events. POA once hospice initiated. Case management coordinating transfer to facility for end-of-life care/hospice in the setting of end-stage COPD. On comfort care measures - Constitutional Vitals: Vital Signs Temp Pulse Resp BP Pulse Ox 96.5 F L 105 H 20 94/57 89 L 09/11/19 08:35 09/11/19 08:35 09/11/19 08:35 09/11/19 08:35 09/11/19 08:35 Period Temp Pulse Resp BP Sys/Robert Pulse Ox Last 24 Hr 96.3 F-97.5 F 74-105 16-24 82-109/54-82 87-99 Intake and Output 09/10/19 09/11/19 09/11/19 21:59 05:59 13:59 Intake Total 758 265 Balance 758 265 Weight 258 lb Intake & Output: Intake & Output 09/10/19 09/11/19 09/11/19 21:59 05:59 13:59 Intake Total 758 265 Balance 758 265 Weight 258 lb Intake: IV 758 65 Lactated Ringers 1,000 ml @ 250 758 mls/hr IV .Q4H [facility] Rx#: [id number] Oral 200 Other: Stool Size Small Stool Color Brown Stool Consistency Soft Exam: Morbidly obese Confused Nonlabored breathing No anxiety agitation Medical - PN: Obj Da - Labs CBC & Chem 7: 09/11/19 05:10 09/11/19 05:10 Labs: Abnormal Lab Results 09/11/19 09/11/19 09/10/19 05:10 05:10 12:53 RBC 3.32 L MCV 124.4 H MCH 37.7 H MCHC 30.3 L Plt Count 121 L MPV 12.5 H Lymph % (Auto) Lymph # (Auto) Lymphocytes % 14 L Metamyelocytes % 1 H RBC Morphology Abnorm A Macrocytosis 3+ A Sodium 146 H Chloride 92 L 93 L Carbon Dioxide 43 H* 46 H* Anion Gap 6.0 L Creatinine 0.4 L 0.4 L Phosphorus 2.1 L NT-Pro-B Natriuret Pep 2220.0 H Total Protein 5.3 L Albumin 2.4 L 2.7 L Albumin/Globulin Ratio 0.8 L 0.8 L Triglycerides 152 H 09/10/19 12:53 RBC 3.54 L MCV 126.8 H MCH 38.1 H MCHC 30.1 L Plt Count 130 L MPV 12.4 H Lymph % (Auto) 15.2 L Lymph # (Auto) 1.10 L Lymphocytes % Metamyelocytes % RBC Morphology Macrocytosis Sodium Chloride Carbon Dioxide Anion Gap Creatinine Phosphorus NT-Pro-B Natriuret Pep Total Protein Albumin Albumin/Globulin Ratio Triglycerides Meds: Medications Acetaminophen (Tylenol) 650 mg PO Q4-6HP PRN; Protocol PRN Reason: Per Pain Protocol/Fever > 101 Hydrocodone Bitart/Acetaminophen ([place] 5/325mg) 0 tab PO Q4HP PRN; Protocol PRN Reason: Per Pain Protocol Last Admin: 09/11/19 06:53 Dose: 2 tab Documented by: Albuterol/Ipratropium (Duoneb) 3 ml NEB Q4HRT [facility] Last Admin: 09/11/19 07:12 Dose: 3 ml Documented by: Bisacodyl (Dulcolax) 10 mg NH Q2-3DAYS PRN PRN Reason: Constipation Budesonide (Pulmicort) 0.5 mg NEB Q12 [facility] Last Admin: 09/11/19 07:12 Dose: 0.5 mg Documented by: Docusate Sodium (Colace) 100 mg PO BID [facility] Last Admin: 09/11/19 08:43 Dose: 100 mg Documented by: Heparin Sodium (Porcine) (Heparin) 5,000 unit SQ Q12 [facility] Last Admin: 09/11/19 08:44 Dose: 5,000 unit Documented by: Hydromorphone HCl (Dilaudid) 0 mg IV Q4HP PRN; Protocol PRN Reason: Per Pain Protocol Sodium Chloride (Sodium Chloride 0.9%) 1,000 mls @ 50 mls/hr IV .Q20H [facility] Stop: 09/13/19 05:18 Last Admin: 09/10/19 17:32 Dose: 50 mls/hr Documented by: Acetaminophen (Ofirmev) 650 mg in 65 mls @ 130 mls/hr IV Q6HP PRN; Protocol PRN Reason: Per Pain Protocol/Fever > 101 Last Infusion: 09/11/19 00:15 Dose: Infused Documented by: Magnesium Sulfate (Magnesium Sulfate) 2 gm in 50 mls @ 50 mls/hr IV UD PRN PRN Reason: MG = or < 1.7 Melatonin (Melatonin 3mg Tablet) 3 mg PO HSP PRN PRN Reason: Insomnia Last Admin: 09/10/19 23:45 Dose: 3 mg Documented by: Ondansetron HCl (Zofran Odt) 4 mg SL Q4-6HP PRN; Protocol PRN Reason: Nausea And Vomiting Ondansetron HCl (Zofran) 4 mg IV Q4-6HP PRN; Protocol PRN Reason: Nausea And Vomiting Polyethylene Glycol (Miralax) 17 gm PO DAILYP PRN PRN Reason: Constipation Potassium Chloride (Klor-Con) 40 meq PO DAILYP PRN PRN Reason: K+ < 3.5 Senna/Docusate Sodium (Senna Plus Tablet) 1 tab PO HS [facility] Last Admin: 09/10/19 20:44 Dose: 1 tab Documented by: Sodium Chloride (Saline Flush) 10 ml IV Q8 [facility] Last Admin: 09/11/19 04:05 Dose: Not Given Documented by: Medical - PN: A/P - Time Spent With Patient Total time spent is greater than 50% in coordination of care (as documented) at patient's floor/unit and/or counseling patient: 25 - 35 minutes (1) End stage chronic obstructive pulmonary disease Status: Acute Assessment and plan: * End-stage COPD continue bronchodilators/oxygen. Await transition to hospice at facility. Case management coordinating. * History of NYHA class III systolic heart failure. Currently well compensated. Echocardiogram from prior visit 60% EF * Severe deconditioning secondary to morbid obesity and inability to take care of self-continue all therapies directed towards comfort * Hypothyroidism continue home dose thyroxine * Anxiety disorder continue venlafaxine * DVT prophylaxis on heparin plan * Continue observation until placement available * Bronchodilators/oxygen * Continue all therapies/diet/activity directed towards comfort * Case management coordinate transfer to facility for end-of-life care/hospice Current Visit: Yes Medical - PN: Qual - VTE Deep Vein Thrombosis/Pulmonary Embolism Present on Admission: No
[2019-09-11] MEDS ORDERED: HYDROmorphone 0.5 MG/0.5 ML SYRINGE IV PRN (10:15)
--- NOTE | 2019-09-11 14:04 | Discharge Summary ---
Medical - DS: Prov Patient information: Note initiated : 09/11/19 at 2:00 pm Service Date, if different from initiated Date: [] Patient: Elizabeth Robles 73 y/o F admitted on 09/10/19 for failure to thrive, weakness. Chief Complaint: [] Date of admission: 09/10/19 16:59 Discharge date: 09/11/19 Primary care physician: PCP No Consults: 09/10/19 15:35 Consult to Physician [CONS] Stat Comment: Consulting Provider: Cj Borrero Reason For Exam: Physician to Consult Medical - DS: Meds - Discharge Medications Prescriptions: LORazepam [Lorazepam Intensol] 2 mg PO Q4H PRN #30 ml PRN Reason: Anxiety Prescription Printed morphine 10 mg PO Q2HP PRN #20 oral.conc PRN Reason: Anxiety Prescription Printed Scopolamine [Transderm-Scop] 1 each TD Q72 #7 patch.td72 Prescription Printed Ondansetron [Zofran ODT] 4 mg SL Q4-6HP PRN #10 tab PRN Reason: Nausea Prescription Printed Active and Home Medications: Home Medications Oxygen 3 L 1 dose .ROUTE DAILY 07/29/19 [History Confirmed 09/10/19 Last Taken Unknown] Bisacodyl [Dulcolax] 10 mg HI Q2-3DAYS PRN supp.rect 09/11/19 [Rx Last Taken Unknown] Docusate Sodium [Colace] 100 mg PO BID cap 09/11/19 [Rx Last Taken Unknown] LORazepam [Lorazepam Intensol] 2 mg PO Q4H PRN #30 ml 09/11/19 [Rx Last Taken Unknown] Ondansetron [Zofran ODT] 4 mg SL Q4-6HP PRN #10 tab 09/11/19 [Rx Last Taken Unknown] Scopolamine [Transderm-Scop] 1 each TD Q72 #7 patch.td72 09/11/19 [Rx Last Taken Unknown] morphine 10 mg PO Q2HP PRN #20 oral.conc 09/11/19 [Rx Last Taken Unknown] Medical - DS: Hosp Hospital Course: Discharge diagnosis * End-stage COPD continue bronchodilators/oxygen. Discharging with home hospice * History of NYHA class III systolic heart failure. Currently well compensated. Echocardiogram from prior visit 60% EF * Severe deconditioning secondary to morbid obesity and inability to take care of self-continue all therapies directed towards comfort * Anxiety disorder continue as needed anxiolytics Brief hospital course Ms. Robles is a 73 year old F morbidly obese lady with a history of advanced COPD CO2 retainer presents to the ER with worsening weakness/failure to function and unable to take care of herself. After recent hospitalization she was discharged to [facility] following which he was discharged home. Since then patient has not been able to take care of self and has gradually deteriorated. She has been essentially laying on bed. With increasing concerns she was brought in to ER. Initial work-up in the ER was essentially unremarkable except for chronic CO2 retention. Patient is currently on baseline oxygen. Per family and patient she would like to be comfort care only and would like to transition to hospice at a care facility due to inability of self and family to provide adequate care. She otherwise denies fever, chills, diarrhea, dysuria, headache, photophobia. 09/10-patient remains encephalopathic and confused however cooperative. No overnight events. POA once hospice initiated. Case management coordinating transfer to facility for end-of-life care/hospice in the setting of end-stage COPD. On comfort care measures Patient discharging with home hospice Discharge diagnosis: . - Time Spent with Patient Total time spent providing and/or coordinating discharge services: Greater than 30 minutes Medical - DS: Exam - Constitutional Vitals: Vital Signs Temp Pulse Pulse Pulse Resp BP BP 09/11/19 08:35 96.5 F L 105 H 20 94/57 09/11/19 03:41 97.5 F 90 20 96/58 09/10/19 23:27 96.5 F L 83 22 106/73 09/10/19 23:05 99 H 22 09/10/19 20:00 94 H 20 09/10/19 19:48 97.2 F 74 20 82/59 09/10/19 19:25 95 H 20 09/10/19 17:19 96.3 F L 75 24 H 87/60 09/10/19 16:59 96.3 F L 75 16 87/60 09/10/19 16:22 85 20 104/59 09/10/19 15:17 90 20 108/73 09/10/19 14:51 88 20 100/66 Pulse Ox 09/11/19 08:35 89 L 09/11/19 03:41 95 09/10/19 23:27 87 L 09/10/19 23:05 09/10/19 20:00 93 09/10/19 19:48 88 L 09/10/19 19:25 09/10/19 17:19 98 09/10/19 16:59 98 09/10/19 16:22 93 09/10/19 15:17 93 09/10/19 14:51 95 Intake and Output 09/11/19 09/11/19 09/11/19 05:59 13:59 21:59 Intake Total 265 1000 Balance 265 1000 Intake: IV 65 1000 Sodium Chloride 0.9% 1,000 ml @ 1000 50 mls/hr IV .Q20H [facility] Rx#: [id number] Oral 200 Medical - DS: Data Labs on day of discharge: Labs from last 24 hours 09/11/19 09/11/19 05:10 05:10 WBC 7.2 RBC 3.32 L Hgb 12.5 Hct 41.3 MCV 124.4 H MCH 37.7 H MCHC 30.3 L RDW 13.2 Plt Count 121 L MPV 12.5 H Total Counted 100 Seg Neutrophils % 74 Band Neutrophils % 1 Lymphocytes % 14 L Monocytes % (Manual) 9 Eosinophils % (Manual) 1 Metamyelocytes % 1 H Platelet Estimate Decreased RBC Morphology Abnorm A Macrocytosis 3+ A Sodium 146 H Potassium 3.4 Chloride 92 L Carbon Dioxide 43 H* Anion Gap 11.0 BUN 17 Creatinine 0.4 L GFR Calculation 104 Glucose 92 Uric Acid 5.7 Calcium 9.2 Phosphorus 2.1 L Magnesium 1.7 Total Bilirubin 0.8 Direct Bilirubin 0.3 GGT 11 AST 19 ALT 6 Alkaline Phosphatase 109 Lactate Dehydrogenase 235 Total Protein 5.3 L Albumin 2.4 L Globulin 2.9 Albumin/Globulin Ratio 0.8 L Triglycerides 152 H Medical - DS: A/P - Patient/Caregiver Discharge Instructions Activity: increase activity as tolerated Diet: Regular Diet Additional Instructions: Home hospice ambulance transfer Prescriptions: LORazepam [Lorazepam Intensol] 2 mg PO Q4H PRN #30 ml PRN Reason: Anxiety Prescription Printed morphine 10 mg PO Q2HP PRN #20 oral.conc PRN Reason: Anxiety Prescription Printed Scopolamine [Transderm-Scop] 1 each TD Q72 #7 patch.td72 Prescription Printed Ondansetron [Zofran ODT] 4 mg SL Q4-6HP PRN #10 tab PRN Reason: Nausea Prescription Printed - Problem Maintenance (1) End stage chronic obstructive pulmonary disease Status: Acute - Follow up Plan Follow up with: Niesha,PCP [Primary Care Provider] - Disposition: Hospice - Home Care Plan Goals: This discharge packet is provided to you to help keep you informed about your care. We want to ensure you get everything you need when you go home. You will also be receiving a call from us in a few days to follow up with you and see how you are doing since your discharge. This gives us a chance to listen to any concerns you maybe experiencing since you were discharged or any additional needs you may have, as well as providing us feedback on your care experience. We strive to always provide excellent care and thank you for your feedback and for choosing [facility]. Prognosis: Serious Rehab Potential: Undetermined I certify that the patient requires SNF services: No Overall status at discharge: patient is not back to baseline Medical - DS: Qual - VTE Deep Vein Thrombosis/Pulmonary Embolism Present on Admission: No
== END 2019-09-11 14:50 | disposition hospice, home (50) ==
LOC: MEDSUR 11:53 → ED 11:53 → MEDSUR 16:58
PROVIDERS: ADMIT Internal Medicine; ATTEND Internal Medicine